=== PATIENT | female | born 1960 | race Caucasian/White ===

== ENCOUNTER 2022-07-25 21:32 | Inpatient (IN) | payer OTHER, SELFPAY ==
[2022-07-25 21:34] VITALS: O2SAT 99
--- NOTE | 2022-07-25 21:41 | PC.NURSE ---
1950-MD Yuli called asking for bed situation and that he has a pt a [facility] he wants transferred here. Pt info taken and relayed to Everardo the Hospitalist. 1999- [facility] access center called to speak to Hospitalist but said they were disconnected from [facility] and that they would call back. 2004- I called [facility] for Facesheet to be sent to [facility]. 2007- [facility] called back at this time with acceptance from [facility] hospitalist and MD Yuli. Bed assignment given and number for report as well. 2139- Pt arrived to 2nd floor at this time.
--- NOTE | 2022-07-25 21:43 | PC.NURSE ---
AT 2009 RECIEVED REPORT FROM Trena JONES RN/[facility]. PATIENT ARRIVED TO THE FLOOR AT 2135 [facility]. ADMITTED TO ROOM 215.
--- NOTE | 2022-07-25 21:45 | PC.NURSE ---
pt arrived to floor at this time
[2022-07-25 21:55] VITALS: BP 149/63; PULSE 77; RESP 17; TEMP 36.6; O2SAT 93; BMI 30.8
--- NOTE | 2022-07-25 22:05 | XR_ITS ---
PROCEDURE INFORMATION: Exam: XR Chest Exam date and time: 07/25/2022 10:35 PM Age: 62 years old Clinical indication: Other: Syncope TECHNIQUE: Imaging protocol: Radiologic exam of the chest. Views: 1 view. COMPARISON: No relevant prior studies available. FINDINGS: Lungs: Clear, symmetrically inflated lungs. Pleural spaces: No pleural effusion. No pneumothorax. Heart/Mediastinum: Cardiac silhouette is normal in size for technique. Vasculature: Mediastinal surgical clips and vascular markers suggest prior myocardial revascularization. Diaphragm: Elevated left hemidiaphragm. Bones/joints: Age appropriate. IMPRESSION: No acute cardiopulmonary abnormality. Elevated left hemidiaphragm noted.
--- NOTE | 2022-07-25 22:06 | XR_ITS ---
PROCEDURE INFORMATION: Exam: XR Right Foot Exam date and time: 07/25/2022 10:35 PM Age: 62 years old Clinical indication: Other: Heel ulcer; Additional info: Ulcer right heel TECHNIQUE: Imaging protocol: Radiologic exam of the right foot. Views: 1 or 2 views. COMPARISON: No relevant prior studies available. FINDINGS: Bones/joints: There is thickening of the Achilles tendon. Soft tissues: Pes cavus. Shallow ulcer noted over the heel. Hyperextended toes limit assessment. Dorsal soft tissue swelling. Vasculature: Moderate arterial calcification. IMPRESSION: 1. No bony destructive change is evident. Shallow ulcer noted over the heel. No radiopaque foreign body. Prominent arterial calcifications suggest diabetes. 2. Thickened Achilles tendon may reflect tendinosis or partial disruption. 3. Pes cavus. Hyperextended toes.
--- NOTE | 2022-07-25 22:26 | ECG_ITS ---
APPROVED REPORT Exam: Resting ECG HR:82 bpm ECG Measurements Heart Rate 82 AXES OH 167 P 52 QRSd 105 QRS -13 QT 379 T 84 QTc 417 Conclusion SINUS RHYTHM LEFT VENTRICULAR HYPERTROPHY AND ST-T CHANGE [VOLTAGE CRITERIA PLUS ST/T ABNORMALITY] ABNORMAL ECG UNCONFIRMED REPORT Electronically signed by : Jordon Caal MD 07/26/2022 20:00:50
--- NOTE | 2022-07-25 23:11 | EXP.HP ---
History of Present Illness *Admission Date: 07/25/22 *Reason for visit:: Syncope, Hypoglycemia *History of present illness: Ms. Slade is a 62-year-old female who was transferred from [facility] today due to a syncopal event that occurred while at [facility] prior to presentation. She was found by EMS to have a blood glucose level that was 50 mg/dl on arrival to [facility] by EMS. She was given an AMP of D50 and brought to [facility] ER by EMS. While at [facility] she continued to be hypoglycemic and required an additional amp of D50, blood glucose was noted to be <49, during her work-up at [facility], Troponin was found to be elevated at 327. EKG showed Sinus Tachycardia with HR of [address] segment elevation or depression. She was noted to have a diabetic ulcer on the Right heel and WBC was elevated at 17.2. She was transferred to [facility] for higher level of care and for Cardiology evaluation due to elevated troponin and non-healing right foot ulcer. Discussion was undertaken with Cardiology who recommends an Echo, the patient had a recent CABG x 3 in 11/2021 and an [place] and Cardiac monitoring. At the outside facility the patient received Heparin, Brilinta, Atorvastatin at 1L Normal Saline. The plan of care was discussed with the patient on admission. She verbalized understanding and agreement with the plan of care. [facility] Disclaimer: The information contained in this section may have been updated after the patient was seen, as this information can be updated by other users. Medical History (Updated 07/26/22 @ 01:40 by Jocelin Betancur RN) Diabetes Elevated HDL HTN (hypertension) Hypothyroid Surgical History S/P CABG x 3 Family History Brother Hypertension Mother Hypertension Father Hypertension Mother Hypothyroid Sister Hypothyroid Father COPD (chronic obstructive pulmonary disease) Father Lung cancer Social History Smoking Status: Former smoker years smoked: 2 alcohol intake: never current occupational status: unemployed Travel in the last 8 weeks: None adopted: No caregiver/support person: Yes ([employer]) foster care: No household members: none housing: house lives independently: Yes marital status: single number of children: 0 number of grandchildren: 0 education level: high school service: No [place] [facility]: No current occupational exposures/hazards: No pets and animals: No leisure activities: other sexually active: No diet: diabetic well-balanced diet: about half the time caffeine: No physical activity: walking frequency: 1-2 times per week Review of Systems Review of Systems Review of systems:: pertinent systems reviewed and negative unless documented below Constitutional Constitutional: Reports system reviewed and no additional complaints, except as documented Eyes Eyes: Reports system reviewed and no additional complaints, except as documented ENT Ears, Nose, Mouth, and Throat: Reports dizziness *Cardiovascular Cardiovascular: Reports system reviewed and no additional complaints, except as documented *Respiratory Respiratory: Reports system reviewed and no additional complaints, except as documented *Gastrointestinal Gastrointestinal: Reports system reviewed and no additional complaints, except as documented *Genitourinary Genitourinary: Reports system reviewed and no additional complaints, except as documented *Musculoskeletal Musculoskeletal: Reports system reviewed and no additional complaints, except as documented Integumentary/Breasts Skin/Breast: Reports system reviewed and no additional complaints, except as documented *Neurologic Neurologic: Reports dizziness Psychiatric Psychiatric: Reports system reviewed and no a
[2022-07-25 23:12] LABS: Basophils % 0.1 % (0.1-2.0); Eosinophils # 0.1 K/mm3 (0.0-0.4); Eosinophils % 0.5 % (0.1-12.0); Hematocrit 25.4 % (37.0-47.0); Hemoglobin 8.8 g/dL (12.2-16.2); Lymphocytes % 5.3 % (10-50); Mean Corpuscular HGB Conc 34.5 g/dL (31.8-35.4); Mean Corpuscular Hemoglobin 28.7 pg (27.0-31.2); Mean Corpuscular Volume 83.2 fl (81-99); Mean Platelet Volume 7.7 fl (7.4-10.4); Monocytes % 5.3 % (1.7-9.3); Neutrophils # 16.6 K/mm3 (1.8-7.8); Neutrophils % 88.7 % (37.0-80.0); Platelet Count 385 K/mm3 (142-424); Red Blood Count 3.05 M/mm3 (4.20-5.40); Red Cell Distribution Width 13.9 % (11.5-17.5); White Blood Count 18.7 K/mm3 (4.8-10.8)
[2022-07-25 23:13] LABS: Chloride 106 mmol/L (98-107)
[2022-07-25 23:14] LABS: Potassium 3.7 mmoL/L (3.5-5.1); Sodium 131 mmol/L (136-145)
[2022-07-25 23:16] LABS: Alanine Aminotransferase 29 U/L (12-78); Alkaline Phosphatase 100 U/L (38-126); Anion Gap 9.7 mEq/L (5-15); Aspartate Amino Transferase 41 U/L (14-36); Bilirubin,Total 0.5 mg/dl (0.2-1.3); Blood Urea Nitrogen 33 mg/dl (7-17); Carbon Dioxide 19 mmol/L (22.0-30.0); Creatinine Clearance Estimated 50 mL/min (50-200); Estimated Glomerular Filt Rate 30 ml/min (>60); GFR (African American) 37 ML/MIN (>60)
[2022-07-25 23:17] LABS: Albumin Level 3.4 g/dl (3.5-5.0); Albumin/Globulin Ratio 1.1 (1.1-1.8); Calcium 8.3 mg/dl (8.4-10.2); Globulin 3.1 g/dL (1.3-3.2); Glucose 78 mg/dl (74-100); Total Protein,Serum 6.5 g/dl (6.3-8.2)
[2022-07-25 23:21] LABS: Iron 17 ug/dL (37-170)
[2022-07-25 23:31] LABS: NT Pro Brain Natriuretic Pep. 7860 pg/mL (0-125); Total Iron Binding Capacity 220 ug/dL (265-497)
[2022-07-25 23:38] LABS: MANUAL DIFFERENTIAL MANUAL DIFFERENTIAL (MANUAL DIFF)
[2022-07-25 23:44] LABS: Lymphocytes % 9 % (10-50); Monocytes % 1 % (2-9); Neutrophils % 89 % (42-76); Platelet Estimate Normal; Total Cells Counted 100
[2022-07-25 23:45] LABS: Ovalocytes 1+; Poikilocytosis 1+
[2022-07-25 23:57] LABS: Troponin I < 0.01 ng/ml (0.00-0.034)
[2022-07-26] VITALS (8 sets, daily range): BP systolic 127–167; BP diastolic 54–70; PULSE 80–107; RESP 16–20; TEMP 36.8–37.8; O2SAT 96–100; BMI 30.9
--- NOTE | 2022-07-26 00:30 | PC.NURSE ---
AT 2230 PATIENTS COGNITIVE STATUS DECLINED. BRAIN FOG. FSBS 42. REPEAT FSBS 39. HOSPITALIST NOTIFIED (JULIO CÉSAR) AND ORDER RECEIVED TO GIVE 12.5 GM D50 IVPWHICH WAS GIVEN AT 2232. AT 0005 PATIENT C/O NAUSEA AND SHAKEY. FSBS 46. 2ND DOSE 0F D50 12.5 GM IVP GIVEN AT 0006. REPEAT FSBS AT 0030 WAS 76.
[2022-07-26 00:31] LABS: Vitamin B12 223 pg/mL (239-931)
--- NOTE | 2022-07-26 00:43 | PC.NURSE ---
PATIENT VOMITED. HOSPITALIST NOTIFIED. TO PLACE ORDER FOR PRN MED.
--- NOTE | 2022-07-26 01:08 | PC.NURSE ---
ORDER RECEIVED TO DO Q 1 HR FSBD. 0100 FSBS NOW 53. HOSPITALIST (JULIO CÉSAR ) [id number]. TO PUT ORDER IN FOR D50 25 GRAMS IVP.
--- NOTE | 2022-07-26 01:21 | PC.NURSE ---
25 GRAM D50 IVP RECEIVED AT 0117.
--- NOTE | 2022-07-26 01:23 | PC.NURSE ---
RIGHT FOOT ULCER UNSTAGEABLE. FOUL SMELLING. YELLOW DRAINAGE. ALSO HAS SUSPICIOUS MOLE ON BACK. POSSIBLE CANCER.
[2022-07-26 01:58] LABS: POC Glucose,Bedside 89 (70-110)
[2022-07-26 01:58] LABS: POC Glucose,Bedside 76 (70-110)
--- NOTE | 2022-07-26 02:07 | PC.NURSE ---
fsbs 97 at this time.
[2022-07-26 02:21] LABS: POC Glucose,Bedside 97 (70-110)
[2022-07-26 02:21] LABS: POC Glucose,Bedside 53 (70-110)
[2022-07-26 03:10] LABS: POC Glucose,Bedside 64 (70-110)
--- NOTE | 2022-07-26 05:08 | PC.NURSE ---
FSBS AT 0400 WAS 78. FSBS AT 0500 WAS 74. WILL CONTINUE TO MONITOR.
[2022-07-26 05:10] LABS: POC Glucose,Bedside 78 (70-110)
[2022-07-26 05:10] LABS: POC Glucose,Bedside 74 (70-110)
--- NOTE | 2022-07-26 05:36 | PC.NURSE ---
PATIENT'S FSBS HAVE BEEN LOW DISPITE D50 IVP AND SNACKS. NO FURTHER N/V SINCE MEDICATED WITH ZOFRAN, RIGHT FOOT ELEVATED. RUNNING LOW GRADE TEMP 100.1 ORAL.
[2022-07-26 05:38] LABS: Troponin I < 0.01 ng/ml (0.00-0.034)
[2022-07-26 06:06] LABS: POC Glucose,Bedside 64 (70-110)
--- NOTE | 2022-07-26 06:41 | PC.NURSE ---
6AM FSBS 64. ICE CREAM PROVIDED.
--- NOTE | 2022-07-26 06:53 | PC.NURSE ---
FSBS 85.
[2022-07-26 06:59] LABS: POC Glucose,Bedside 85 (70-110)
[2022-07-26 08:15] LABS: Basophils % 0.2 % (0.1-2.0); Eosinophils # 0.1 K/mm3 (0.0-0.4); Eosinophils % 0.2 % (0.1-12.0); Hematocrit 26.3 % (37.0-47.0); Hemoglobin 8.7 g/dL (12.2-16.2); Lymphocytes # 1.2 K/mm3 (0.7-4.5); Lymphocytes % 6.1 % (10-50); Mean Corpuscular HGB Conc 32.9 g/dL (31.8-35.4); Mean Corpuscular Hemoglobin 28.1 pg (27.0-31.2); Mean Corpuscular Volume 85.5 fl (81-99); Mean Platelet Volume 7.7 fl (7.4-10.4); Monocytes % 5.1 % (1.7-9.3); Neutrophils # 16.7 K/mm3 (1.8-7.8); Neutrophils % 88.3 % (37.0-80.0); Platelet Count 440 K/mm3 (142-424); Red Blood Count 3.07 M/mm3 (4.20-5.40); White Blood Count 18.9 K/mm3 (4.8-10.8)
[2022-07-26 08:18] LABS: MANUAL DIFFERENTIAL MANUAL DIFFERENTIAL (MANUAL DIFF)
[2022-07-26 08:20] LABS: Chloride 109 mmol/L (98-107); Potassium 4.1 mmoL/L (3.5-5.1); Sodium 133 mmol/L (136-145)
[2022-07-26 08:22] LABS: Blood Urea Nitrogen 34 mg/dl (7-17); Creatinine Clearance Estimated 50 mL/min (50-200); Estimated Glomerular Filt Rate 30 ml/min (>60); GFR (African American) 37 ML/MIN (>60)
[2022-07-26 08:23] LABS: Alanine Aminotransferase 40 U/L (12-78); Albumin Level 3.4 g/dl (3.5-5.0); Albumin/Globulin Ratio 1.1 (1.1-1.8); Alkaline Phosphatase 117 U/L (38-126); Anion Gap 11.1 mEq/L (5-15); Aspartate Amino Transferase 65 U/L (14-36); Bilirubin,Total 0.4 mg/dl (0.2-1.3); Carbon Dioxide 17 mmol/L (22.0-30.0); Glucose 63 mg/dl (74-100); Total Protein,Serum 6.4 g/dl (6.3-8.2)
[2022-07-26 08:28] LABS: Hemoglobin A1C 5.2 % (4.0-6.0)
--- NOTE | 2022-07-26 08:29 | HMH.PHAINT1 ---
Pharmacy Intervention Comments: MEDICATION RECONCILIATION COMPLETE USING EXTERNAL PHARMACY FILL HISTORY.
--- NOTE | 2022-07-26 08:31 | PC.NURSE ---
wound culture obtained from giuliano del castillo. sent to lab
[2022-07-26 08:39] LABS: Lymphocytes % 5 % (10-50); Monocytes % 8 % (2-9); Neutrophils % 87 % (42-76); Total Cells Counted 100
[2022-07-26 08:40] LABS: Anisocytosis 1+; Ovalocytes 1+; Platelet Estimate Slight Increase; Poikilocytosis 1+
[2022-07-26 08:54] LABS: Thyroid Stimulating Hormone 2.17 uIU/mL (0.465-4.68)
--- NOTE | 2022-07-26 09:09 | EXP.PHA.CONS ---
Pharmacy Consult Date: 07/26/22 Time: 09:11 Referring provider: DR ZAMUDIO Reason for Consult:: VANCOMYCIN DOSING CONSULT Allergies Allergy/AdvReac Type Severity Reaction Status Date / Time No Known Allergies Allergy Verified 07/25/22 22:09 Home Medications Medication Instructions Recorded Confirmed Type atorvastatin 40 mg tablet 40 mg PO HS High cholesterol 07/25/22 07/25/22 History empagliflozin 10 mg tablet 10 mg PO AM CAD 07/25/22 07/25/22 History (Jardiance) glimepiride 4 mg tablet 4 mg PO DAILYDM Cholesterol 07/25/22 07/26/22 History levothyroxine 75 mcg tablet 75 mcg PO DAILYDM THYROID 07/25/22 07/26/22 History lisinopril 20 mg tablet 20 mg PO AM Hypertension 07/25/22 07/25/22 History metformin 1,000 mg tablet 1,000 mg PO BIDWMEAL Diabetes 07/25/22 07/26/22 History metoprolol tartrate 25 mg tablet 12.5 mg PO BID Hypertension 07/25/22 07/26/22 History New Prescriptions to Start Prescriptions: Height: 1.73 m Weight: 92.6 kg Laboratory Results:: Laboratory Results - last 24 hr 07/25/22 22:50: Troponin I < 0.01 07/25/22 22:50: WBC 18.7 H, RBC 3.05 L, Hgb 8.8 L, Hct 25.4 L, MCV 83.2, MCH 28.7, MCHC 34.5, RDW 13.9, Plt Count 385, MPV 7.7, Neut % (Auto) 88.7 H, Lymph % (Auto) 5.3 L, [place] % (Auto) 5.3, Eos % (Auto) 0.5, Baso % (Auto) 0.1, Neut # (Auto) 16.6 H, Lymph # (Auto) 1.0, [place] # (Auto) 1.0, Eos # (Auto) 0.1, Baso # (Auto) 0.0, Total Counted 100, Neutrophils % (Manual) 89 H, Band Neutrophils % 1.0, Lymphocytes % (Manual) 9 L, Monocytes % (Manual) 1 L, Platelet Estimate Normal, Poikilocytosis 1+, Ovalocytes 1+ 07/25/22 22:50: Sodium 131 L, Potassium 3.7, Chloride 106, Carbon Dioxide 19 L, Anion Gap 9.7, BUN 33 H, Creatinine 1.70 H, Estimated Creat Clear 50, Estimated GFR 30 L, Est GFR ( Amer) 37 L, Glucose 78, Calcium 8.3 L, Total Bilirubin 0.5, AST 41 H, ALT 29, Alkaline Phosphatase 100, Total Protein 6.5, Albumin 3.4 L, Globulin 3.1, Albumin/Globulin Ratio 1.1 07/25/22 22:50: NT-Pro-B Natriuret Pep 7860 H 07/25/22 22:50: Iron 17 L, TIBC 220 L, Iron Saturation 7.39820 L 07/25/22 22:50: Vitamin B12 223 L 07/25/22 23:00: POC Glucose 89 07/26/22 00:27: POC Glucose 76 07/26/22 00:58: POC Glucose 53 L 07/26/22 02:04: POC Glucose 97 07/26/22 03:02: POC Glucose 64 L 07/26/22 04:03: POC Glucose 78 07/26/22 05:03: POC Glucose 74 07/26/22 05:08: Troponin I < 0.01 07/26/22 05:58: POC Glucose 64 L 07/26/22 06:52: POC Glucose 85 07/26/22 08:05: WBC 18.9 H, RBC 3.07 L, Hgb 8.7 L, Hct 26.3 L, MCV 85.5, MCH 28.1, MCHC 32.9, RDW 14.0, Plt Count 440 H, MPV 7.7, Neut % (Auto) 88.3 H, Lymph % (Auto) 6.1 L, [place] % (Auto) 5.1, Eos % (Auto) 0.2, Baso % (Auto) 0.2, Neut # (Auto) 16.7 H, Lymph # (Auto) 1.2, [place] # (Auto) 1.0, Eos # (Auto) 0.1, Baso # (Auto) 0.0, Total Counted 100, Neutrophils % (Manual) 87 H, Lymphocytes % (Manual) 5 L, Monocytes % (Manual) 8, Platelet Estimate Slight increase, Poikilocytosis 1+, Anisocytosis 1+, Ovalocytes 1+ 07/26/22 08:05: Sodium 133 L, Potassium 4.1, Chloride 109 H, Carbon Dioxide 17 L, Anion Gap 11.1, BUN 34 H, Creatinine 1.70 H, Estimated Creat Clear 50, Estimated GFR 30 L, Est GFR ( Amer) 37 L, Glucose 63 L, Calcium 8.0 L, Total Bilirubin 0.4, AST 65 H D, ALT 40 D, Alkaline Phosphatase 117, Total Protein 6.4, Albumin 3.4 L, Globulin 3.0, Albumin/Globulin Ratio 1.1, TSH 2.17 07/26/22 08:05: Hemoglobin A1c 5.2 Medical History: Medical History (Updated 07/26/22 @ 01:40 by Jocelin Betancur RN) Diabetes Elevated HDL HTN (hypertension) Hypothyroid Assessment and Plan Assessment and plan all Dx Assessment and Plan for all problems:: Pharmacokinetic dosing service Objective: Age: 62 yo Serum creatinine: 1.7 mg/dL Height: 68.1 Inches Weight (kg): 92.6 Diagnosis: CELLULITIS, SEPSIS, FOOT ULCER Assessment: IBW (kg): 64.13 Dosing wt(kg): 92.6 Estimated Creatinine clearance
[2022-07-26 09:34] LABS: POC Glucose,Bedside 73 (70-110)
[2022-07-26 09:34] LABS: POC Glucose,Bedside 50 (70-110)
--- NOTE | 2022-07-26 10:24 | PC.NURSE ---
fsbs 41 @ 1000 check. New orders received
[2022-07-26 11:08] LABS: POC Glucose,Bedside 79 (70-110)
[2022-07-26 11:10] LABS: Troponin I < 0.01 ng/ml (0.00-0.034)
--- NOTE | 2022-07-26 11:16 | PC.NURSE ---
pt bathed and assisted up to chair with 2 assist dry dressing placed to r heel due to increased drainage. foul odor from wound.
[2022-07-26 11:30] LABS: Coronavirus 19, PCR Not Detected (NotDetected); Influenza A, PCR Not Detected (NotDetected); Influenza B, PCR Not Detected (NotDetected)
[2022-07-26 12:07] LABS: POC Glucose,Bedside 83 (70-110)
[2022-07-26 13:09] LABS: POC Glucose,Bedside 95 (70-110)
[2022-07-26 14:22] LABS: POC Glucose,Bedside 70 (70-110)
[2022-07-26 17:38] LABS: POC Glucose,Bedside 136 (70-110)
[2022-07-26 17:38] LABS: POC Glucose,Bedside 50 (70-110)
[2022-07-26 18:47] LABS: Chloride 108 mmol/L (98-107); Potassium 3.8 mmoL/L (3.5-5.1); Sodium 133 mmol/L (136-145)
[2022-07-26 18:50] LABS: Anion Gap 12.8 mEq/L (5-15); Blood Urea Nitrogen 34 mg/dl (7-17); Carbon Dioxide 16 mmol/L (22.0-30.0); Creatinine Clearance Estimated 47 mL/min (50-200); Estimated Glomerular Filt Rate 29 ml/min (>60); GFR (African American) 34 ML/MIN (>60)
[2022-07-26 18:51] LABS: Calcium 7.9 mg/dl (8.4-10.2); Glucose 154 mg/dl (74-100)
[2022-07-26 20:44] LABS: POC Glucose,Bedside 153 (70-110)
[2022-07-26 22:38] LABS: POC Glucose,Bedside 126 (70-110)
[2022-07-27] VITALS (7 sets, daily range): BP systolic 123–153; BP diastolic 55–70; PULSE 60–95; RESP 16–18; TEMP 36.9–37.2; O2SAT 98–100; BMI 31.6
[2022-07-27 00:19] LABS: POC Glucose,Bedside 132 (70-110)
[2022-07-27 02:37] LABS: POC Glucose,Bedside 118 (70-110)
[2022-07-27 03:40] LABS: Strep Scrn Group A (Rapid) Negative (Negative)
[2022-07-27 04:19] LABS: POC Glucose,Bedside 109 (70-110)
--- NOTE | 2022-07-27 04:39 | PC.NURSE ---
pt with complaints of nausea this shift and medicated x2 with zofran, fsbs have remained above 100 through the shift at this time, pt was incontinent of bowel x1, pt with mild diarrhea episodes x2, will send stool sample with next loose bm, pt requires assist x1 to bsc, pt with low grade temp noted at start of shift, pt afebrile at this time, other v/s are stable, right foot ulcer with mod amount of drainage noted, drainage has strong odor noted, +pedal pulse noted to RLE, no acute distress or concerns noted at this time. pt is alert and oriented x4
[2022-07-27 06:56] LABS: POC Glucose,Bedside 143 (70-110)
[2022-07-27 07:25] LABS: Chloride 114 mmol/L (98-107); Potassium 3.8 mmoL/L (3.5-5.1); Sodium 134 mmol/L (136-145)
[2022-07-27 07:26] LABS: Basophils # 0.1 K/mm3 (0-0.2); Basophils % 0.4 % (0.1-2.0); Eosinophils # 0.1 K/mm3 (0.0-0.4); Eosinophils % 0.7 % (0.1-12.0); Mean Platelet Volume 7.8 fl (7.4-10.4); Red Cell Distribution Width 14.2 % (11.5-17.5)
--- NOTE | 2022-07-27 07:27 | EXP.ACUTE.PN ---
Subjective *Date: 07/27/22 *Time: 09:09 Interval history: Patient is doing better overnight with her blood sugars. Glucoses consistently running above 100. Has received significant volume over the past 24 hours. We will discontinue IV fluids. Is fluid +1.5 L since admission. Receiving dose of Lasix this morning. Stable on room air however. Blood pressure within normal limits. Denies chest pain, shortness of breath, nausea, vomiting. Still having pain in right ankle. Afebrile. Tolerating good p.o. intake. Medical Exam Vital signs and Labs for Last 24 Hours: Vital Signs Temp Pulse Pulse Pulse Resp BP Pulse Ox 07/27/22 04:00 95 H 07/27/22 04:00 98.4 F 87 16 128/67 99 07/26/22 20:00 80 07/27/22 00:00 60 07/27/22 00:00 98.6 F 68 16 138/70 98 07/26/22 20:00 93 H 100 07/26/22 20:00 99.5 F 84 18 140/67 100 07/26/22 16:00 87 07/26/22 16:00 98.8 F 93 H 16 142/65 H 100 07/26/22 08:00 85 07/26/22 12:08 92 H 07/26/22 12:00 98.3 F 91 H 18 127/64 97 07/26/22 08:00 99.4 F 87 20 136/70 99 Intake and Output 07/26/22 07/26/22 07/27/22 15:59 23:59 07:59 Intake Total 720 / 2309 711 / 2309 Output Total 400 / 900 0 / 900 0 / 0 Balance 320 / 1409 711 / 1409 0 / 0 Intake: Intake, Oral Amount 720 / 1040 200 / 1040 Infusion Intake 511 / 511 Dextrose 5 % and 0.9 % NaCl 1, 511 / 511 000 ml @ 150 mls/hr IV [id number] Rx#:[id number] Output: Output, Urine Amount 400 / 900 0 / 900 0 / 0 Other: Number of Voids 0 Number of Unmeasured Voids 1 0 1 Number of Bowel Movements 1 1 1 Weight 92.6 kg 94.6 kg Patient Weight 07/27/22 23:59 Weight 94.6 kg Laboratory Results - last 24 hr 07/26/22 02:44: Group A Strep Rapid Negative 07/26/22 08:05: WBC 18.9 H, RBC 3.07 L, Hgb 8.7 L, Hct 26.3 L, MCV 85.5, MCH 28.1, MCHC 32.9, RDW 14.0, Plt Count 440 H, MPV 7.7, Neut % (Auto) 88.3 H, Lymph % (Auto) 6.1 L, [place] % (Auto) 5.1, Eos % (Auto) 0.2, Baso % (Auto) 0.2, Neut # (Auto) 16.7 H, Lymph # (Auto) 1.2, [place] # (Auto) 1.0, Eos # (Auto) 0.1, Baso # (Auto) 0.0, Total Counted 100, Neutrophils % (Manual) 87 H, Lymphocytes % (Manual) 5 L, Monocytes % (Manual) 8, Platelet Estimate Slight increase, Poikilocytosis 1+, Anisocytosis 1+, Ovalocytes 1+ 07/26/22 08:05: Sodium 133 L, Potassium 4.1, Chloride 109 H, Carbon Dioxide 17 L, Anion Gap 11.1, BUN 34 H, Creatinine 1.70 H, Estimated Creat Clear 50, Estimated GFR 30 L, Est GFR ( Amer) 37 L, Glucose 63 L, Calcium 8.0 L, Total Bilirubin 0.4, AST 65 H D, ALT 40 D, Alkaline Phosphatase 117, Total Protein 6.4, Albumin 3.4 L, Globulin 3.0, Albumin/Globulin Ratio 1.1, TSH 2.17 07/26/22 08:05: Hemoglobin A1c 5.2 07/26/22 08:05: POC Glucose 73 07/26/22 09:14: POC Glucose 50 L 07/26/22 10:42: Troponin I < 0.01 07/26/22 11:01: POC Glucose 79 07/26/22 11:24: SARS-CoV-2 (PCR) Not detected, Influenza A Untype (PCR) Not detected, Influenza Type B (PCR) Not detected 07/26/22 12:00: POC Glucose 83 07/26/22 13:02: POC Glucose 95 07/26/22 14:15: POC Glucose 70 07/26/22 15:46: POC Glucose 50 L 07/26/22 16:57: POC Glucose 136 H 07/26/22 18:37: Sodium 133 L, Potassium 3.8, Chloride 108 H, Carbon Dioxide 16 L, Anion Gap 12.8, BUN 34 H, Creatinine 1.80 H, Estimated Creat Clear 47, Estimated GFR 29 L, Est GFR ( Amer) 34 L, Glucose 154 H D, Calcium 7.9 L 07/26/22 20:12: POC Glucose 153 H 07/26/22 22:31: POC Glucose 126 H 07/27/22 00:11: POC Glucose 132 H 07/27/22 02:29: POC Glucose 118 H 07/27/22 04:12: POC Glucose 109 07/27/22 06:49: POC Glucose 143 H I & O for Labs for Last 24 Hours: Intake & Output 07/24/22 07/25/22 07/26/22 07/27/22 23:59 23:59 23:59 23:59 Intake Total 2309 / 2309 Output Total 900 / 900 0 / 0 Balance 1409 / 1409 0 / 0 Weight 91.9 kg 92.6 kg 94.6 kg Constitutional: Present no acute distress, obese and chronically ill appearing Head: Present
[2022-07-27 07:28] LABS: Alanine Aminotransferase 54 U/L (12-78); Albumin Level 2.7 g/dl (3.5-5.0); Alkaline Phosphatase 119 U/L (38-126); Anion Gap 8.8 mEq/L (5-15); Aspartate Amino Transferase 75 U/L (14-36); Bilirubin,Total 0.3 mg/dl (0.2-1.3); Blood Urea Nitrogen 31 mg/dl (7-17); Calcium 7.4 mg/dl (8.4-10.2); Carbon Dioxide 15 mmol/L (22.0-30.0); Creatinine Clearance Estimated 51 mL/min (50-200); Estimated Glomerular Filt Rate 30 ml/min (>60); GFR (African American) 37 ML/MIN (>60); Globulin 2.7 g/dL (1.3-3.2); Glucose 135 mg/dl (74-100); Total Protein,Serum 5.4 g/dl (6.3-8.2)
[2022-07-27 07:29] LABS: Magnesium 1.8 mg/dl (1.6-2.3)
[2022-07-27 07:31] LABS: Erythrocyte Sedimentation Rate > 140 mm/hr (0-30)
[2022-07-27 07:33] LABS: Hemoglobin 7.7 g/dL (12.2-16.2); Lymphocytes # 1.1 K/mm3 (0.7-4.5); Lymphocytes % 9.4 % (10-50); Mean Corpuscular HGB Conc 33.4 g/dL (31.8-35.4); Mean Corpuscular Hemoglobin 28.5 pg (27.0-31.2); Mean Corpuscular Volume 85.3 fl (81-99); Monocytes # 0.7 K/mm3 (0.1-1.0); Monocytes % 5.9 % (1.7-9.3); Neutrophils # 10.1 K/mm3 (1.8-7.8); Neutrophils % 83.6 % (37.0-80.0); Platelet Count 379 K/mm3 (142-424)
[2022-07-27 07:34] LABS: C-Reactive Protein 104.2 mg/L (0-4)
[2022-07-27 09:41] LABS: POC Glucose,Bedside 193 (70-110)
[2022-07-27 11:44] LABS: POC Glucose,Bedside 181 (70-110)
--- NOTE | 2022-07-27 15:25 | PC.NURSE ---
Pt has been up to chair this shift. Has ambulated to BS with assist this shift. Tolerated fair. 1550 ml total urine output. BLE remain edematous. Lasix IV x2 administered. DSG placed to (R) foot. Pictures of (R)foot and ankle on chart. VSS. Medication administered per jul. No complaints stated. Family in room.
[2022-07-27 15:28] LABS: POC Glucose,Bedside 194 (70-110)
[2022-07-27 18:16] LABS: Chloride 108 mmol/L (98-107); Sodium 134 mmol/L (136-145)
[2022-07-27 18:19] LABS: Blood Urea Nitrogen 34 mg/dl (7-17); Calcium 8.3 mg/dl (8.4-10.2); Carbon Dioxide 16 mmol/L (22.0-30.0); Creatinine Clearance Estimated 46 mL/min (50-200); Estimated Glomerular Filt Rate 27 ml/min (>60); GFR (African American) 32 ML/MIN (>60); Glucose 171 mg/dl (74-100)
[2022-07-27 21:31] LABS: POC Glucose,Bedside 166 (70-110)
[2022-07-28 04:00] VITALS: BP 138/68; PULSE 85; RESP 18; TEMP 36.9; O2SAT 98; BMI 31.4
[2022-07-28 06:29] LABS: POC Glucose,Bedside 168 (70-110)
[2022-07-28 06:32] LABS: Basophils # 0.1 K/mm3 (0-0.2); Basophils % 0.8 % (0.1-2.0); Chloride 113 mmol/L (98-107); Eosinophils # 0.1 K/mm3 (0.0-0.4); Hematocrit 23.7 % (37.0-47.0); Hemoglobin 7.7 g/dL (12.2-16.2); Lymphocytes # 1.2 K/mm3 (0.7-4.5); Lymphocytes % 9.4 % (10-50); Mean Corpuscular HGB Conc 32.6 g/dL (31.8-35.4); Mean Corpuscular Hemoglobin 28.5 pg (27.0-31.2); Mean Corpuscular Volume 87.3 fl (81-99); Monocytes # 0.9 K/mm3 (0.1-1.0); Neutrophils # 10.3 K/mm3 (1.8-7.8); Neutrophils % 81.8 % (37.0-80.0); Platelet Count 421 K/mm3 (142-424); Potassium 4.1 mmoL/L (3.5-5.1); Red Blood Count 2.71 M/mm3 (4.20-5.40); Red Cell Distribution Width 14.2 % (11.5-17.5); Sodium 133 mmol/L (136-145); White Blood Count 12.6 K/mm3 (4.8-10.8)
[2022-07-28 06:34] LABS: Alanine Aminotransferase 44 U/L (12-78); Aspartate Amino Transferase 50 U/L (14-36); Blood Urea Nitrogen 35 mg/dl (7-17); Creatinine Clearance Estimated 46 mL/min (50-200); Estimated Glomerular Filt Rate 27 ml/min (>60); GFR (African American) 32 ML/MIN (>60)
[2022-07-28 06:35] LABS: Albumin Level 2.8 g/dl (3.5-5.0); Alkaline Phosphatase 137 U/L (38-126); Anion Gap 10.1 mEq/L (5-15); Bilirubin,Total 0.4 mg/dl (0.2-1.3); Calcium 7.9 mg/dl (8.4-10.2); Carbon Dioxide 14 mmol/L (22.0-30.0); Globulin 2.9 g/dL (1.3-3.2); Glucose 150 mg/dl (74-100); Magnesium 1.7 mg/dl (1.6-2.3); Total Protein,Serum 5.7 g/dl (6.3-8.2)
[2022-07-28 07:19] VITALS: BP 156/72; PULSE 79; RESP 18; TEMP 37.3; O2SAT 100
--- NOTE | 2022-07-28 08:00 | CA_ITS ---
APPROVED REPORT EXAM: Comprehensive 2D, Doppler, and color-flow Echocardiogram Urologist Physician: Lashon Daniel CRT Ht: 5 ft 8 in Wt: 204lbs BSA: 2.06 BP: 146/63 mmHg Indications: Diabetes, Hyperlipidemia, Hypertension/HDD, cabg 2021 2D Dimensions LVOT 1.82 cm (M/F) 1.5-2.5 LA Volume 71.70 mL LA Volume Index 34.00 mL/m2 (M/F) 16-34 M-Mode Dimensions RVDd 2.54 cm (0.9-2.6) LA Diam 4.79 cm (1.9-4.0) LVDd 4.49 cm (3.5-5.7) Ao Diam 3.71 cm (2.0-3.7) LVDs 3.22 cm (3.5-5.7) IVSd 1.65 cm (0.6-1.1) PWd 1.09 cm (0.6-1.1) EF (Teich) 54.80% FS 28.30% EDV (Teich) 92.00 mL TAPSE 2.12 (<1.7) ESV (Teich) 41.60 mL LV Diastology E Decel Time 213.00 (160-240 msec) E/A Ratio 1.83 MED E' 4.40 (< 7 cm/sec) MED A' 5.20 cm/s E'/MED E' Ratio 34.52 (>14) LAT E' 4.50 (<10 cm/sec) LAT A' 7.30 cm/s E/LAT E' Ratio 33.76 (>14) Aortic Valve AO Peak GR. 10.50 mmHg Mitral Valve MV A Velocity 83.00 (40-130 cm/s) E/A Ratio 1.83 MV Decel. Time 213.00 (160-240 ms) Pulmonary Valve PV Peak Velocity 205.00 (50-150 cm/s) Tricuspid Valve TR P. Velocity 305.00 cm/s RAP Estimate 10.00 mmHg RVSP 47.20 mmHg Left Ventricle Left atrium is mildly enlarged, left ventricle is normal size mild concentric left ventricular hypertrophy, estimated ejection fraction 45% with marked hypokinesis involving the basal septum and inferior wall. Grade 2 diastolic dysfunction seen with tissue Doppler evidence of late left atrial pressure. Right Ventricle Right atrium and right ventricle are normal size and contractility. Aortic Valve Aortic valve is minimally thickened and calcified without aortic stenosis aortic insufficiency. Mitral Valve Mitral valve has mitral annular calcification, leaflets are minimally thickened, there is mild mitral regurgitation. Tricuspid Valve Tricuspid valve grossly normal, there is mild tricuspid regurgitation, tricuspid regurgitation jet velocity is inadequate for calculation of the right ventricular systolic pressure. Pulmonic Valve Pulmonic valve is poorly visualized. Great Vessels Aortic root is normal size. Inferior vena cava is mildly dilated with no significant inspiratory collapse. Pericardium No significant pericardial effusion noted. Conclusion 1. Mildly enlarged left atrium, normal left ventricular size, mild concentric left ventricular hypertrophy, estimated ejection fraction 45% with multiple segmental wall motion abnormality described above, grade 2 diastolic dysfunction seen with tissue Doppler evidence of raise left atrial pressure. 2. Mild mitral and tricuspid regurgitation. 3. No significant pericardial effusion noted. 4. Inferior vena cava is dilated with no significant inspiratory collapse. Electronically signed by : Primo Argueta MD 07/28/2022 13:02:46
--- NOTE | 2022-07-28 08:07 | EXP.ACUTE.PN ---
Subjective *Date: 07/28/22 *Time: 08:24 Interval history: No acute events overnight. Stable on room air. Diuresed well yesterday. Tolerating p.o. intake. Afebrile. Still having some pain in right ankle but no fevers or chills. Medical Exam Vital signs and Labs for Last 24 Hours: Vital Signs Temp Pulse Pulse Resp BP Pulse Ox 07/28/22 07:19 99.1 F 79 18 156/72 H 100 07/28/22 04:00 98.4 F 85 18 138/68 98 07/27/22 23:40 98.4 F 80 16 123/55 L 98 07/27/22 19:30 98.8 F 74 18 153/64 H 100 07/27/22 15:19 99.0 F 77 17 140/59 L 100 07/27/22 11:06 98.6 F 77 18 130/65 100 Intake and Output 07/27/22 07/28/22 07/28/22 23:59 07:59 15:59 Intake Total 240 / 3212 240 / 240 Output Total 800 / 2350 400 / 400 Balance -560 / 862 -160 / -160 Intake: Intake, Oral Amount 240 / 1020 240 / 240 Output: Output, Urine Amount 800 / 2350 400 / 400 Other: Number of Voids 1 Number of Unmeasured Voids 1 0 Number of Bowel Movements 1 Weight 94.2 kg Patient Weight 07/28/22 23:59 Weight 94.2 kg Laboratory Results - last 24 hr 07/27/22 09:05: POC Glucose 193 H 07/27/22 11:35: POC Glucose 181 H 07/27/22 15:20: POC Glucose 194 H 07/27/22 18:00: Sodium 134 L, Potassium 4.0, Chloride 108 H, Carbon Dioxide 16 L, Anion Gap 14.0, BUN 34 H, Creatinine 1.90 H, Estimated Creat Clear 46, Estimated GFR 27 L, Est GFR ( Amer) 32 L, Glucose 171 H D, Calcium 8.3 L 07/27/22 21:18: POC Glucose 166 H 07/28/22 06:15: POC Glucose 168 H 07/28/22 06:16: WBC 12.6 H, RBC 2.71 L, Hgb 7.7 L, Hct 23.7 L, MCV 87.3, MCH 28.5, MCHC 32.6, RDW 14.2, Plt Count 421, MPV 8.0, Neut % (Auto) 81.8 H, Lymph % (Auto) 9.4 L, [place] % (Auto) 7.0, Eos % (Auto) 1.0, Baso % (Auto) 0.8, Neut # (Auto) 10.3 H, Lymph # (Auto) 1.2, [place] # (Auto) 0.9, Eos # (Auto) 0.1, Baso # (Auto) 0.1 07/28/22 06:16: Sodium 133 L, Potassium 4.1, Chloride 113 H, Carbon Dioxide 14 L, Anion Gap 10.1, BUN 35 H, Creatinine 1.90 H, Estimated Creat Clear 46, Estimated GFR 27 L, Est GFR ( Amer) 32 L, Glucose 150 H, Calcium 7.9 L, Magnesium 1.7, Total Bilirubin 0.4, AST 50 H D, ALT 44, Alkaline Phosphatase 137 H, Total Protein 5.7 L, Albumin 2.8 L, Globulin 2.9, Albumin/Globulin Ratio 1.0 L I & O for Labs for Last 24 Hours: Intake & Output 07/25/22 07/26/22 07/27/22 07/28/22 23:59 23:59 23:59 23:59 Intake Total 2309 / 2309 2972 / 3212 240 / 240 Output Total 900 / 900 2350 / 2350 400 / 400 Balance 1409 / 1409 622 / 862 -160 / -160 Weight 91.9 kg 92.6 kg 94.6 kg 94.2 kg Microbiology Reports for the Last 24 Hours: Microbiology 07/25/22 22:50 Blood Blood Culture - Preliminary NO GROWTH AFTER 48 HOURS 07/25/22 22:50 Blood Blood Culture - Preliminary NO GROWTH AFTER 48 HOURS Constitutional: Present no acute distress, obese and chronically ill appearing Head: Present atraumatic and normocephalic ENT: Present normal exam Neck: Present normal inspection Respiratory: Present normal respiratory effort; Absent accessory muscle use, rhonchi, wheezes or crackles Cardiac: Present Reg Rate and Rhythm Comment:: Well-healed sternotomy scar GI: Present soft and normal bowel sounds; Absent distention or tenderness Extremities: Present normal inspection, full ROM and edema (3+ right lower extremities to knee; left leg with no edema) Skin: Present intact and erythema Comment:: Warmth/erythema over right ankle with sloughing of epidermis and eschar and heel wound; foul smell from foot Neuro: Present Cranial Nerve 2-12 Intact, Grossly Intact, alert, awake, oriented x 3 and moves all extremities Assessment and Plan *Assessment and plan (1) CHF exacerbation: Status: Acute Qualifiers: Heart failure type: unspecified Qualified Code(s): I50.9 - Heart failure, unspecified Category: Medical Code(s): I50.9 - Heart failure, unspecified (2) TYLOR (acute ki
--- NOTE | 2022-07-28 08:13 | CT_ITS ---
FINAL REPORT TECHNIQUE: Thin section axial images were obtained through the right foot without contrast. Reconstruction images were obtained from the axial data. Exam was performed using dose reduction technique. CLINICAL HISTORY: eval for osteo FINDINGS: There is no acute fracture or dislocation. No acute osseous abnormality is identified. 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 There are secondary ossicles adjacent to the navicular and adjacent to the posterior talus. No bone destruction is identified. There is diffuse soft tissue edema in the ankle and foot. No loculated fluid collection or subcutaneous air is seen. Remaining soft tissues are unremarkable. IMPRESSION: No acute osseous abnormality of the right lower extremity. Soft tissue edema which suggests cellulitis in the appropriate clinical setting. Reviewed, Interpreted and Dictated by Sarah Moreno MD Transcribed by Shanae Cerna Authenticated and [facility]
--- NOTE | 2022-07-28 08:26 | EXP.ORTH.CON ---
History of Present Illness *Admission Date: 07/25/22 *Reason for visit:: Right DFU, cellulitis *History of present illness: Ms. Slade is a 62-year-old female who [facility] due to a syncopal event that occurred while at [facility] prior to presentation. She was found by EMS to have a blood glucose level that was 50 mg/dl on arrival to [facility] by EMS. She was given an AMP of D50 and brought to [facility] ER by EMS. While at [facility] she continued to be hypoglycemic and required an additional amp of D50, blood glucose was noted to be <49, during her work-up at [facility], Troponin was found to be elevated at 327. EKG showed Sinus Tachycardia with HR of [address] segment elevation or depression. She was noted to have a diabetic ulcer on the Right heel and WBC was elevated at 17.2. She was transferred to [facility] for higher level of care and for Cardiology evaluation due to elevated troponin and non-healing right foot ulcer. Discussion was undertaken with Cardiology who recommends an Echo, the patient had a recent CABG x 3 in 11/2021 and an MADISON and Cardiac monitoring. At the outside facility the patient received Heparin, Brilinta, Atorvastatin at 1L Normal Saline. The plan of care was discussed with the patient on admission. She verbalized understanding and agreement with the plan of care. Podiatry: Consulted for right heel cellulitis and diabetic ulcer. Patient reports she has had the wound for 2-3 weeks. Prior to the wound she denies having any problem with the feet. She is diabetic, well controlled she reports at home. She states she lives at home by herself but has a brother and sister in the area. She is currently not working. Reports pain to the right foot with pressure and trying to walk. [facility] Disclaimer: The information contained in this section may have been updated after the patient was seen, as this information can be updated by other users. Medical History Diabetes Elevated HDL HTN (hypertension) Hypothyroid Surgical History S/P CABG x 3 Family History Hypothyroid Mother Sister Lung cancer Father COPD (chronic obstructive pulmonary disease) Father Hypertension Brother Mother Father Social History Smoking Status: Former smoker years smoked: 2 alcohol intake: never current occupational status: unemployed Travel in the last 8 weeks: None adopted: No caregiver/support person: Yes ([employer]) foster care: No household members: none housing: house lives independently: Yes marital status: single number of children: 0 number of grandchildren: 0 education level: high school service: No detention: No current occupational exposures/hazards: No pets and animals: No leisure activities: other sexually active: No diet: diabetic well-balanced diet: about half the time caffeine: No physical activity: walking frequency: 1-2 times per week Review of Systems Review of Systems Review of systems:: pertinent systems reviewed and negative unless documented below Constitutional Constitutional: Reports system reviewed and no additional complaints, except as documented Eyes Eyes: Reports system reviewed and no additional complaints, except as documented ENT Ears, Nose, Mouth, and Throat: Reports dizziness *Cardiovascular Cardiovascular: Reports system reviewed and no additional complaints, except as documented *Respiratory Respiratory: Reports system reviewed and no additional complaints, except as documented *Gastrointestinal Gastrointestinal: Reports system reviewed and no additional complaints, except as documented *Genitourinary Genitourinary: Reports system reviewed and
--- NOTE | 2022-07-28 08:51 | US_ITS ---
FINAL REPORT CLINICAL HISTORY: WOUND RIGHT HEEL,DM,CAD,,HTN,HLD,CLAUDICATION,REST PAIN FINDINGS: ANKLE-BRACHIAL PRESSURE INDICES Pressure indices are as follows: RIGHT LOWER EXTREMITY: Ankle-brachial pressure index: 0.95 Comments: Normal waveforms and normal pulses. LEFT LOWER EXTREMITY: Ankle-brachial pressure index: 1.16 Comments: Normal waveforms and normal pulses. CONCLUSION: No evidence of significant obstructive peripheral vascular disease of the lower extremities. Borderline MADISON on the right lower extremity. Reviewed, Interpreted and Dictated by Sarah Moreno MD Transcribed by Shanae Cerna Authenticated and [facility]
--- NOTE | 2022-07-28 09:19 | EXP.CARD.CON ---
History of Present Illness History of Present Illness Consult date: 07/28/22 Requesting physician: Clyde Stroud Chief complaint: syncope History of present illness: This is a 62-year-old white female who presented to the emergency department at [facility] after syncopal episode at [facility]. The patient states that she had gotten to [facility] and was getting out of her truck and going to get into a motorized scooter when she had sudden onset of syncope. Her reports that she vomited all over herself when she had the syncopal episode. She denies any symptoms prior to the episode of syncope. She denies any chest pain or pressure. She denies any shortness of breath. She does state that she has some edema in her right lower extremity due to an ulcer on her right heel that has been persistent for quite some time. EMS found that the patient had a blood sugar around 50 mg/dL is on arrival to [facility]. It was documented that her blood sugars were in the 30s at one point as well. She was given an amp of D50 and brought to [facility]. While in [facility] the patient's blood glucose was less than 49 mg/dL and she had an elevated high-sensitivity troponin. The patient was transferred here to [facility]. Her troponins have been negative. She continues to deny any chest pain or pressure. She was initially treated with dextrose and IV fluids secondary to her hypoglycemia. The patient did become short of breath and had an elevated BNP at 7860. The patient was started on IV Lasix yesterday and her symptoms have improved. This morning she denies any shortness of breath. She still has some edema in her right lower extremity. Podiatry has been consulted for the ulceration to her right heel. She denies any fever, chills, nausea, vomiting, diarrhea, PND or orthopnea. [facility] Disclaimer: The information contained in this section may have been updated after the patient was seen, as this information can be updated by other users. Medical History (Updated 07/28/22 @ 09:27 by Stephany Soares APRN) Coronary artery disease Diabetes Diastolic congestive heart failure Elevated HDL HTN (hypertension) Hyperlipidemia Hypertension Hypothyroid Surgical History (Updated 07/28/22 @ 09:26 by Stephany Soares APRN) S/P CABG x 3 Family History Hypothyroid Mother Sister Lung cancer Father COPD (chronic obstructive pulmonary disease) Father Hypertension Brother Mother Father Social History Smoking Status: Former smoker years smoked: 2 alcohol intake: never current occupational status: unemployed Travel in the last 8 weeks: None adopted: No caregiver/support person: Yes ([employer]) foster care: No household members: none housing: house lives independently: Yes marital status: single number of children: 0 number of grandchildren: 0 education level: high school service: No usp: No current occupational exposures/hazards: No pets and animals: No leisure activities: other sexually active: No diet: diabetic well-balanced diet: about half the time caffeine: No physical activity: walking frequency: 1-2 times per week Review of Systems Review of Systems Review of systems:: pertinent systems reviewed and negative unless documented below Constitutional Constitutional: Reports system reviewed and no additional complaints, except as documented Eyes Eyes: Reports system reviewed and no additional complaints, except as documented ENT Ears, Nose, Mouth, and Throat: Reports system reviewed and no additional complaints, except as documented *Cardiovascular Cardiovascular: Reports system reviewed and no additional complaints, except as documented, Reports dyspnea on exertion, Reports leg edema (Right lower extremity) and Reports syncope
--- NOTE | 2022-07-28 10:31 | HMH.OTEV ---
OT Inpatient Evaluation Rehab OT IP Evaluation Start: 07/27/22 09:32 Freq: ONCE Status: Active Protocol: Document 07/28/22 10:01 DEVIN (Rec: 07/28/22 10:28 DEVIN [id number]) Rehab OT IP Assessment Subjective History Pt was seen resting in the chair upon arrivial. Pt was oriented x3 person, place, and . Pt was agreeable to engage in therapy evaluation. Pt was admitted to [facility] on 07/25 due to Syncope, Hypoglycemia. Pt reports that she was independent in all ADLs and IADLs. She reports that she completes all cooking and cleaning tasks at home. Pt reports that she lives alone. She reports that there are four steps upon entering in the home from the front door, and three steps from entering in the back door. Pt reports that there are no steps inside the house. She reports that she is still able to drive, and she goes with her brother for grocery shopping. Pt reports that she uses a cane when for outings outside the house, and has access to a rolling walker. Pt reports that her brother is not able to assist her due to his work schedule. Pt has a past medical history of the following: Diabetes Elevated HDL HTN (hypertension) Hypothyroid Pt was left resting in chair with call santillan and all other needs within reach. Subjective I just struggle getting up from the toilet. Objective Patient Orientation Person,Place,Birthday Upper Extremity Gross ROM WNL Transfer Training Sit/Stand Transfer Assist Level Contact Guard/Hand Hold Chair Transfer Ability Contact Guard/Hand Hold Chair Transfer Technique Sit to/from Ambulatory Chair Transfer Assistive Devices [place]
--- NOTE | 2022-07-28 10:33 | HMH.PTEV ---
Physical Therapy Evaluation Rehab PT IP Evaluation Start: 07/27/22 09:32 Freq: ONCE Status: Active Protocol: Document 07/28/22 09:00 FLEX (Rec: 07/28/22 10:33 PHORMAURISIO [id number]) Subjective/History History History 62 yowf adm to [facility] with TYLOR, anemia, sepsis, CHF exac. T/F from outside hospital. She also has a pre-existing wound on her R foot. She reports she lives alone, 1-2 steps to entert he home and she uses a RW for all ambulation at baseline. Subjective Subjective Pt reports feeling better overall, only c/o is she has difficulty gettign up from the toilet at home at baseline. Rehab PT IP Eval Objective Appearance Patient Behavior Appropriate Patient Orientation Person,Place,Time Difficulty following instructions none Speech Pattern Clear Ambulation Patient Able to Ambulate Yes Ambulation Observation IP General Gait Pattern Observation Shuffling Step Ambulation Distance (feet) 30 Ambulation Assistive Device Rolling Walker Ambulation Ability Supervision/Stand by Balance Ability to Arise Able, uses arms to help Sitting Balance Steady, safe Standing Balance Steady, wide stance Dynamic Sitting Balance Ability Good Dynamic Standing Balance Ability Fair Transfers Bed Transfer Ability Contact Guard/Hand Hold Chair Transfer Ability Contact Guard/Hand Hold Sit to Stand Bed Transfer Ability Contact Guard/Hand Hold Sit to Stand Chair Transfer Ability Contact Guard/Hand Hold Rehab PT IP prob,goals,plan Problems Date of Evaluation: 07/28/22 Discharge Plan PT Discharge Plan Pt currently appears to be at baseline for all mobility and is appropriate to return home once medically stable. This may change overt he cours eof the next day as she is scheduled for a wound debridement procedure in the am. Mobility may be more difficulty depending on the extent of the debridement that is scheduled to be performed. If mobility status changes, therapy will reevaluate her status. G -code Required
[2022-07-28 10:55] LABS: POC Glucose,Bedside 168 (70-110)
[2022-07-28 11:04] VITALS: BMI 31.4
[2022-07-28 11:06] VITALS: BP 121/70; PULSE 71; RESP 17; TEMP 36.8; O2SAT 100
--- NOTE | 2022-07-28 11:49 | PC.NURSE ---
Pt up ambulating in narvaez with walker. Tolerating well.
--- NOTE | 2022-07-28 13:36 | CARE MANAGER ---
Met with patient at bedside to discuss DME needs at discharge. Patient states that she has a walker, but feels that she would benefit from a BSC. Patient Choice signed for [facility], and I plan to order on day of discharge.
--- NOTE | 2022-07-28 14:24 | PC.NURSE ---
Report given to Jhony Gallegos RN
[2022-07-28 15:14] VITALS: BP 135/62; PULSE 74; RESP 18; TEMP 36.8; O2SAT 99
[2022-07-28 15:46] LABS: C-Peptide 20.3 ng/mL (1.1-4.4); Insulin Level Total 52.7 uIU/mL (2.6-24.9)
[2022-07-28 18:57] LABS: Chloride 110 mmol/L (98-107)
[2022-07-28 18:58] LABS: Potassium 4.1 mmoL/L (3.5-5.1); Sodium 133 mmol/L (136-145)
[2022-07-28 19:00] LABS: Blood Urea Nitrogen 40 mg/dl (7-17); Creatinine Clearance Estimated 46 mL/min (50-200); Estimated Glomerular Filt Rate 27 ml/min (>60); GFR (African American) 32 ML/MIN (>60)
[2022-07-28 19:01] LABS: Anion Gap 10.1 mEq/L (5-15); Calcium 8.3 mg/dl (8.4-10.2); Carbon Dioxide 17 mmol/L (22.0-30.0); Glucose 221 mg/dl (74-100)
--- NOTE | 2022-07-28 19:23 | PC.NURSE ---
Pt has been up to chair today and has ambulated in hallway. Tolerated well. VSS. No complaints voiced to staff.
[2022-07-28 19:28] LABS: POC Glucose,Bedside 223 (70-110)
[2022-07-28 20:00] VITALS: BP 139/65; PULSE 94; RESP 16; TEMP 37.1; O2SAT 100
[2022-07-28 22:23] LABS: POC Glucose,Bedside 189 (70-110)
[2022-07-28 23:32] VITALS: BP 134/65; PULSE 77; RESP 16; TEMP 37; O2SAT 96
[2022-07-28 23:49] LABS: Vancomycin,Trough 17.6 ug/mL (5.0-10.0)
[2022-07-29] VITALS (40 sets, daily range): BP systolic 84–174; BP diastolic 50–94; PULSE 55–85; RESP 11–18; TEMP 36.2–43; O2SAT 96–100; BMI 31.4
[2022-07-29 04:28] LABS: Basophils # 0.1 K/mm3 (0-0.2); Basophils % 0.7 % (0.1-2.0); Eosinophils # 0.3 K/mm3 (0.0-0.4); Eosinophils % 2.3 % (0.1-12.0); Lymphocytes # 1.7 K/mm3 (0.7-4.5); Lymphocytes % 15.4 % (10-50); Mean Corpuscular HGB Conc 33.5 g/dL (31.8-35.4); Mean Corpuscular Hemoglobin 28.5 pg (27.0-31.2); Mean Corpuscular Volume 85.1 fl (81-99); Monocytes # 0.9 K/mm3 (0.1-1.0); Monocytes % 7.8 % (1.7-9.3); Neutrophils # 8.1 K/mm3 (1.8-7.8); Neutrophils % 73.7 % (37.0-80.0); Platelet Count 395 K/mm3 (142-424); Red Blood Count 2.39 M/mm3 (4.20-5.40); Red Cell Distribution Width 14.4 % (11.5-17.5); White Blood Count 10.9 K/mm3 (4.8-10.8)
[2022-07-29 04:34] LABS: Chloride 112 mmol/L (98-107); Sodium 133 mmol/L (136-145)
[2022-07-29 04:37] LABS: Alanine Aminotransferase 36 U/L (12-78); Alkaline Phosphatase 124 U/L (38-126); Aspartate Amino Transferase 33 U/L (14-36); Bilirubin,Total 0.2 mg/dl (0.2-1.3); Blood Urea Nitrogen 40 mg/dl (7-17); Carbon Dioxide 14 mmol/L (22.0-30.0); Chol/HDL Ratio 4.3 (1-3.5); Cholesterol 77 mg/dl (140-200); Creatinine Clearance Estimated 46 mL/min (50-200); Estimated Glomerular Filt Rate 27 ml/min (>60); GFR (African American) 32 ML/MIN (>60); HDL Cholesterol 18 mg/dl (40-60); Hemoglobin 6.8 g/dL (12.2-16.2); Triglycerides 139 mg/dl (30-150); VLDL Cholesterol 28 mg/dL (0-40)
[2022-07-29 04:38] LABS: Albumin Level 2.6 g/dl (3.5-5.0); Albumin/Globulin Ratio 0.9 (1.1-1.8); Globulin 2.9 g/dL (1.3-3.2); Glucose 172 mg/dl (74-100); Hematocrit 20.3 % (37.0-47.0); Magnesium 1.8 mg/dl (1.6-2.3); Total Protein,Serum 5.5 g/dl (6.3-8.2)
[2022-07-29 04:43] LABS: C-Reactive Protein 83.1 mg/L (0-4)
[2022-07-29 04:48] LABS: Direct LDL Cholesterol 34.35 mg/dL (100-129)
--- NOTE | 2022-07-29 04:51 | PC.NURSE ---
Notified lab need for cross match on 2u PRBC.
[2022-07-29 05:16] LABS: Vancomycin,Peak 40.3 ug/ml (11-39)
[2022-07-29 05:22] LABS: Erythrocyte Sedimentation Rate > 140 mm/hr (0-30)
[2022-07-29 06:29] LABS: POC Glucose,Bedside 200 (70-110)
--- NOTE | 2022-07-29 07:56 | EXP.ORTH.PN ---
Subjective *Date: 07/29/22 *Time: 08:48 Interval history: Patient resting in bed alert and oriented x 3. No acute distress noted. Receiving blood transfusion. NPO for right heel wound debridement today by . Right foot and ankle remains edematous and painful. Right heel wound dressing change. Patient made no request. Ortho Exam (Inpt) Vital signs and Labs for Last 24 Hours: Temp Pulse Resp BP Pulse Ox 98.5 F 69 16 130/61 100 07/29/22 07:09 07/29/22 07:09 07/29/22 07:09 07/29/22 07:09 07/29/22 07:09 Laboratory Results - last 24 hr 07/26/22 08:05: Total Insulin 52.7 H, C-Peptide 20.3 H 07/28/22 09:10: Blood Type O Positive, Antibody Screen Negative, Crossmatch (AHG) See Detail 07/28/22 10:47: POC Glucose 168 H 07/28/22 16:57: POC Glucose 223 H 07/28/22 18:18: Sodium 133 L, Potassium 4.1, Chloride 110 H, Carbon Dioxide 17 L, Anion Gap 10.1, BUN 40 H, Creatinine 1.90 H, Estimated Creat Clear 46, Estimated GFR 27 L, Est GFR ( Amer) 32 L, Glucose 221 H D, Calcium 8.3 L 07/28/22 22:07: POC Glucose 189 H 07/28/22 23:10: Vancomycin Trough 17.6 H 07/29/22 04:15: Vancomycin Peak 40.3 H* 07/29/22 04:15: WBC 10.9 H, RBC 2.39 L, Hgb 6.8 L*, Hct 20.3 L*, MCV 85.1, MCH 28.5, MCHC 33.5, RDW 14.4, Plt Count 395, MPV 8.0, Neut % (Auto) 73.7, Lymph % (Auto) 15.4, Swain % (Auto) 7.8, Eos % (Auto) 2.3, Baso % (Auto) 0.7, Neut # (Auto) 8.1 H, Lymph # (Auto) 1.7, Swain # (Auto) 0.9, Eos # (Auto) 0.3, Baso # (Auto) 0.1, ESR > 140 H 07/29/22 04:15: Sodium 133 L, Potassium 4.0, Chloride 112 H, Carbon Dioxide 14 L, Anion Gap 11.0, BUN 40 H, Creatinine 1.90 H, Estimated Creat Clear 46, Estimated GFR 27 L, Est GFR ( Amer) 32 L, Glucose 172 H D, Calcium 8.0 L, Magnesium 1.8, Total Bilirubin 0.2, AST 33 D, ALT 36, Alkaline Phosphatase 124, C-Reactive Protein 83.1 H, Total Protein 5.5 L, Albumin 2.6 L, Globulin 2.9, Albumin/Globulin Ratio 0.9 L 07/29/22 04:15: Triglycerides 139, Cholesterol 77 L, LDL Cholesterol Direct 34.35 L, VLDL Cholesterol 28, HDL Cholesterol 18 L, Cholesterol/HDL Ratio 4.3 H 07/29/22 04:15: Blood Type Confirm O Positive 07/29/22 06:00: POC Glucose 200 H I & O for Labs for Last 24 Hours: Intake & Output 07/26/22 07/27/22 07/28/22 07/29/22 23:59 23:59 23:59 23:59 Intake Total 2309 / 2309 2972 / 3212 820 / 820 0 / 0 Output Total 900 / 900 2350 / 2350 500 / 500 Balance 1409 / 1409 622 / 862 320 / 320 0 / 0 Weight 204 lb 2.369 oz 208 lb 8.917 oz 207 lb 10.807 oz 207 lb 4.8 oz Microbiology Reports for the Last 24 Hours: Microbiology 07/26/22 02:44 Throat Group A Streptococcus Screen (CARMEN) - Final Negative for Group A Streptococcus. 07/28/22 Unknown Foot,Right - Wound Gram Stain - Final Constitutional: Present no acute distress Head: Present normocephalic Neck: Present normal inspection Respiratory: Present normal respiratory effort and able to speak in complete sentences Cardiac: Present Regular Rate and pedal pulses present (weakly palpable) Comment:: No distal leg or pedal hair growth bilaterally GI: Present soft and other Rectal (female): Present deferred (female): Present deferred Extremities: Present tenderness (right heel), normal capillary refill (decreased) and edema (right foot) Skin: Present erythema, warm and wounds Comment:: Right heel has localized edema and erythema to the posterior and inferior aspect. Skin sloughing noted. There is a 4 x 4 cm area of redness/tenderness. There is a 0.5 x 0.5 x 0.4 cm wound, 100% yellow slough fibrotic with purulent drainage that extends through skin and subcutaneous tissue to deep fascia, wound culture taken. There is a 1 x 1 x 0.0 cm wound 100% black eschar. No deep opening that probes to bone. Concern with underlying abscess. Neuro: Present Motor Function Intact, Sensory Function Intact, oriented x 3 and moves all extremities Ankle: right: swelling (right foot/distal ankle) and right: tenderness (posterior heel
--- NOTE | 2022-07-29 08:36 | EXP.PHA.CONS ---
Pharmacy Consult Date: 07/29/22 Time: 08:36 Referring provider: DR ZAMUDIO Reason for Consult:: VANCOMYCIN DOSE ADJUSTMENT BASED ON PEAK AND TROUGH LEVELS Allergies Allergy/AdvReac Type Severity Reaction Status Date / Time No Known Allergies Allergy Verified 07/25/22 22:09 Home Medications Medication Instructions Recorded Confirmed Type atorvastatin 40 mg tablet 40 mg PO HS High cholesterol 07/25/22 07/25/22 History empagliflozin 10 mg tablet 10 mg PO AM Diabetes 07/25/22 07/25/22 History (Jardiance) glimepiride 4 mg tablet 4 mg PO DAILYDM Diabetes 07/25/22 07/26/22 History levothyroxine 75 mcg tablet 75 mcg PO DAILYDM hypothyroidism 07/25/22 07/26/22 History lisinopril 20 mg tablet 20 mg PO AM Hypertension 07/25/22 07/25/22 History metformin 1,000 mg tablet 1,000 mg PO BIDWMEAL Diabetes 07/25/22 07/26/22 History metoprolol tartrate 25 mg tablet 12.5 mg PO BID Hypertension 07/25/22 07/26/22 History New Prescriptions to Start Prescriptions: Height: 1.73 m Weight: 94.03 kg Laboratory Results:: Laboratory Results - last 24 hr 07/26/22 08:05: Total Insulin 52.7 H, C-Peptide 20.3 H 07/28/22 09:10: Blood Type O Positive, Antibody Screen Negative, Crossmatch (AHG) See Detail 07/28/22 10:47: POC Glucose 168 H 07/28/22 16:57: POC Glucose 223 H 07/28/22 18:18: Sodium 133 L, Potassium 4.1, Chloride 110 H, Carbon Dioxide 17 L, Anion Gap 10.1, BUN 40 H, Creatinine 1.90 H, Estimated Creat Clear 46, Estimated GFR 27 L, Est GFR ( Amer) 32 L, Glucose 221 H D, Calcium 8.3 L 07/28/22 22:07: POC Glucose 189 H 07/28/22 23:10: Vancomycin Trough 17.6 H 07/29/22 04:15: Vancomycin Peak 40.3 H* 07/29/22 04:15: WBC 10.9 H, RBC 2.39 L, Hgb 6.8 L*, Hct 20.3 L*, MCV 85.1, MCH 28.5, MCHC 33.5, RDW 14.4, Plt Count 395, MPV 8.0, Neut % (Auto) 73.7, Lymph % (Auto) 15.4, Mcminn % (Auto) 7.8, Eos % (Auto) 2.3, Baso % (Auto) 0.7, Neut # (Auto) 8.1 H, Lymph # (Auto) 1.7, Mcminn # (Auto) 0.9, Eos # (Auto) 0.3, Baso # (Auto) 0.1, ESR > 140 H 07/29/22 04:15: Sodium 133 L, Potassium 4.0, Chloride 112 H, Carbon Dioxide 14 L, Anion Gap 11.0, BUN 40 H, Creatinine 1.90 H, Estimated Creat Clear 46, Estimated GFR 27 L, Est GFR ( Amer) 32 L, Glucose 172 H D, Calcium 8.0 L, Magnesium 1.8, Total Bilirubin 0.2, AST 33 D, ALT 36, Alkaline Phosphatase 124, C-Reactive Protein 83.1 H, Total Protein 5.5 L, Albumin 2.6 L, Globulin 2.9, Albumin/Globulin Ratio 0.9 L 07/29/22 04:15: Triglycerides 139, Cholesterol 77 L, LDL Cholesterol Direct 34.35 L, VLDL Cholesterol 28, HDL Cholesterol 18 L, Cholesterol/HDL Ratio 4.3 H 07/29/22 04:15: Blood Type Confirm O Positive 07/29/22 06:00: POC Glucose 200 H Medical History: Medical History (Updated 07/28/22 @ 09:27 by Stephany Soares APRN) Coronary artery disease Diabetes Diastolic congestive heart failure Elevated HDL HTN (hypertension) Hyperlipidemia Hypertension Hypothyroid Assessment and Plan Assessment and plan all Dx Assessment and Plan for all problems:: RECOMMENDED DOSE AND PREDICTED LEVELS Based on a selected AUC 0-24 of 500 mg?h/liter Recommended dose: 1465 mg Recommended Interval: 31 hrs Predicted peak: 35.0 mcg/ml. Predicted trough: 12.51 mcg/ml. AUC 0-24 /CARMEN (based on an CARMEN of 1 mg/L): 527.6 ~Target: 400 - 600. ENTER NEW (ROUNDED VALUES) Enter New dose: 1250 mg New interval: 24 hrs FINAL VALUES - NEW REGIMEN Predicted values: PEAK: 32.8 mcg/ml TROUGH: 15.19 mcg/ml AUC 0-24 /CARMEN Data: CARMEN 0.5 mcg/mL: AUC/CARMEN: 1101.8 CARMEN 1.0 mcg/mL: AUC/CARMEN: 550.9 CARMEN 1.5 mcg/mL: AUC/CARMEN: 367.3 RECOMMENDATION: CHANGE TO GIVE IV VANCOMYCIN 1250 MG Q24H TO START 07/29/22 AT 23:00
--- NOTE | 2022-07-29 10:25 | EXP.CARD.PN ---
Subjective Subjective Date: 07/29/22 Time: 09:00 Principal diagnosis: syncope Interval history: This is a 62-year-old white female who presented to the emergency department at [facility] after syncopal episode at [facility]. The patient was found to be hypoglycemic and she did have an elevated high-sensitivity troponin. The patient was transferred here to [facility]. She was treated for her hypoglycemia and her troponin here was negative. She denies any chest pain or pressure this morning. She denies any shortness of breath. She still has edema in her right lower extremity. She denies any fever, chills, nausea, vomiting, diarrhea, PND or orthopnea. The patient is scheduled to undergo I&D of the ulcer to her right lower extremity today with podiatry. Exam Data for Last 24 hours Vital signs and Labs for Last 24 Hours: Temp Pulse Resp BP Pulse Ox 98.3 F 69 16 118/56 L 98 07/29/22 07:21 07/29/22 07:21 07/29/22 07:21 07/29/22 07:21 07/29/22 07:21 Laboratory Results - last 24 hr 07/26/22 08:05: Total Insulin 52.7 H, C-Peptide 20.3 H 07/28/22 09:10: Blood Type O Positive, Antibody Screen Negative, Crossmatch (AHG) See Detail 07/28/22 10:47: POC Glucose 168 H 07/28/22 16:57: POC Glucose 223 H 07/28/22 18:18: Sodium 133 L, Potassium 4.1, Chloride 110 H, Carbon Dioxide 17 L, Anion Gap 10.1, BUN 40 H, Creatinine 1.90 H, Estimated Creat Clear 46, Estimated GFR 27 L, Est GFR ( Amer) 32 L, Glucose 221 H D, Calcium 8.3 L 07/28/22 22:07: POC Glucose 189 H 07/28/22 23:10: Vancomycin Trough 17.6 H 07/29/22 04:15: Vancomycin Peak 40.3 H* 07/29/22 04:15: WBC 10.9 H, RBC 2.39 L, Hgb 6.8 L*, Hct 20.3 L*, MCV 85.1, MCH 28.5, MCHC 33.5, RDW 14.4, Plt Count 395, MPV 8.0, Neut % (Auto) 73.7, Lymph % (Auto) 15.4, [place] % (Auto) 7.8, Eos % (Auto) 2.3, Baso % (Auto) 0.7, Neut # (Auto) 8.1 H, Lymph # (Auto) 1.7, [place] # (Auto) 0.9, Eos # (Auto) 0.3, Baso # (Auto) 0.1, ESR > 140 H 07/29/22 04:15: Sodium 133 L, Potassium 4.0, Chloride 112 H, Carbon Dioxide 14 L, Anion Gap 11.0, BUN 40 H, Creatinine 1.90 H, Estimated Creat Clear 46, Estimated GFR 27 L, Est GFR ( Amer) 32 L, Glucose 172 H D, Calcium 8.0 L, Magnesium 1.8, Total Bilirubin 0.2, AST 33 D, ALT 36, Alkaline Phosphatase 124, C-Reactive Protein 83.1 H, Total Protein 5.5 L, Albumin 2.6 L, Globulin 2.9, Albumin/Globulin Ratio 0.9 L 07/29/22 04:15: Triglycerides 139, Cholesterol 77 L, LDL Cholesterol Direct 34.35 L, VLDL Cholesterol 28, HDL Cholesterol 18 L, Cholesterol/HDL Ratio 4.3 H 07/29/22 04:15: Blood Type Confirm O Positive 07/29/22 06:00: POC Glucose 200 H I & O for Last 24 hours: Intake & Output 07/26/22 07/27/22 07/28/22 07/29/22 23:59 23:59 23:59 23:59 Intake Total 2309 / 2309 2972 / 3212 820 / 820 0 / 0 Output Total 900 / 900 2350 / 2350 500 / 500 0 / 0 Balance 1409 / 1409 622 / 862 320 / 320 0 / 0 Weight 204 lb 2.369 oz 208 lb 8.917 oz 207 lb 10.807 oz 207 lb 4.8 oz Microbiology Reports for the Last 24 Hours: Microbiology 07/28/22 Unknown Foot,Right - Wound Gram Stain - Final 07/28/22 Unknown Foot,Right - Wound Wound Culture - Preliminary NO GROWTH AFTER 24 HOURS 07/26/22 02:44 Throat Group A Streptococcus Screen (CARMEN) - Final Negative for Group A Streptococcus. Constitutional Constitutional: no acute distress and obese *Routine HEENT Exam Head: Present normocephalic and atraumatic ENT: Present mucous membranes moist *Routine Neck Exam Neck: Present supple, full ROM and normal carotid upstroke; Absent JVD, carotid bruit or lymphadenopathy *Routine Respiratory Exam Respiratory: Present CTA bilaterally, normal respiratory effort, able to speak in complete sentences and symmetric chest movement *Routine Cardiovascular Exam Cardiovascular: Present RRR, Normal S1 and Normal S2; Absent murmur or gallop *Routine Abdominal Exam Abdominal: Present soft and normoactive bowel so
--- NOTE | 2022-07-29 11:36 | EXP.ACUTE.PN ---
Subjective *Date: 07/29/22 *Time: 11:36 Interval history: Patient pleasant and interactive this morning. Stable on room air. More weak and fatigued. Hemoglobin down to 6.8 this morning. Currently being transfused 1 unit prior to debridement of her ankle. Will receive a second unit later this morning. Denies fever, chest pain, shortness of breath, nausea or vomiting. No active signs of bleeding. Medical Exam Vital signs and Labs for Last 24 Hours: Vital Signs Temp Pulse Pulse Resp BP BP Pulse Ox 07/29/22 10:35 97.9 F 67 16 133/67 100 07/29/22 09:35 98.2 F 70 16 138/69 100 07/29/22 08:51 98.2 F 69 16 133/71 98 07/29/22 07:51 98.4 F 72 16 125/67 100 07/29/22 07:36 98.6 F 67 18 120/60 98 07/29/22 07:21 98.3 F 69 16 118/56 L 98 07/29/22 07:09 98.5 F 69 16 130/61 100 07/29/22 07:09 98.5 F 69 16 130/61 100 07/29/22 07:04 98.5 F 69 16 131/66 99 07/29/22 06:56 98.2 F 68 16 134/66 99 07/29/22 06:47 98.4 F 69 16 134/68 100 07/29/22 06:46 98.2 F 69 16 136/62 100 07/29/22 04:00 98.1 F 72 17 128/74 96 07/29/22 00:00 98.6 F 77 16 134/65 96 07/28/22 23:32 98.6 F 77 16 134/65 96 07/28/22 20:00 98.7 F 94 H 16 139/65 100 07/28/22 15:14 98.3 F 74 18 135/62 99 Intake and Output 07/28/22 07/29/22 07/29/22 23:59 07:59 15:59 Intake Total 240 / 820 0 / 250 250 / 250 Output Total 100 / 500 200 / 200 Balance 140 / 320 0 / 50 50 / 50 Intake: Intake, Oral Amount 240 / 720 Intake (Blood Product) Amt 0 / 250 250 / 250 Red Blood Cells Unit 0 / 250 250 / 250 [id number] Output: Output, Urine Amount 100 / 500 200 / 200 Other: Number of Voids 0 Number of Unmeasured Voids 1 Number of Bowel Movements 0 Weight 94.03 kg 94.03 kg Patient Weight 07/29/22 23:59 Weight 94.03 kg Laboratory Results - last 24 hr 07/26/22 08:05: Total Insulin 52.7 H, C-Peptide 20.3 H 07/28/22 09:10: Blood Type O Positive, Antibody Screen Negative, Crossmatch (AHG) See Detail 07/28/22 16:57: POC Glucose 223 H 07/28/22 18:18: Sodium 133 L, Potassium 4.1, Chloride 110 H, Carbon Dioxide 17 L, Anion Gap 10.1, BUN 40 H, Creatinine 1.90 H, Estimated Creat Clear 46, Estimated GFR 27 L, Est GFR ( Amer) 32 L, Glucose 221 H D, Calcium 8.3 L 07/28/22 22:07: POC Glucose 189 H 07/28/22 23:10: Vancomycin Trough 17.6 H 07/29/22 04:15: Vancomycin Peak 40.3 H* 07/29/22 04:15: WBC 10.9 H, RBC 2.39 L, Hgb 6.8 L*, Hct 20.3 L*, MCV 85.1, MCH 28.5, MCHC 33.5, RDW 14.4, Plt Count 395, MPV 8.0, Neut % (Auto) 73.7, Lymph % (Auto) 15.4, [place] % (Auto) 7.8, Eos % (Auto) 2.3, Baso % (Auto) 0.7, Neut # (Auto) 8.1 H, Lymph # (Auto) 1.7, [place] # (Auto) 0.9, Eos # (Auto) 0.3, Baso # (Auto) 0.1, ESR > 140 H 07/29/22 04:15: Sodium 133 L, Potassium 4.0, Chloride 112 H, Carbon Dioxide 14 L, Anion Gap 11.0, BUN 40 H, Creatinine 1.90 H, Estimated Creat Clear 46, Estimated GFR 27 L, Est GFR ( Amer) 32 L, Glucose 172 H D, Calcium 8.0 L, Magnesium 1.8, Total Bilirubin 0.2, AST 33 D, ALT 36, Alkaline Phosphatase 124, C-Reactive Protein 83.1 H, Total Protein 5.5 L, Albumin 2.6 L, Globulin 2.9, Albumin/Globulin Ratio 0.9 L 07/29/22 04:15: Triglycerides 139, Cholesterol 77 L, LDL Cholesterol Direct 34.35 L, VLDL Cholesterol 28, HDL Cholesterol 18 L, Cholesterol/HDL Ratio 4.3 H 07/29/22 04:15: Blood Type Confirm O Positive 07/29/22 06:00: POC Glucose 200 H I & O for Labs for Last 24 Hours: Intake & Output 07/26/22 07/27/22 07/28/22 07/29/22 23:59 23:59 23:59 23:59 Intake Total 2309 / 2309 2972 / 3212 820 / 820 250 / 250 Output Total 900 / 900 2350 / 2350 500 / 500 200 / 200 Balance 1409 / 1409 622 / 862 320 / 320 50 / 50 Weight 92.6 kg 94.6 kg 94.2 kg 94.03 kg Microbiology Reports for the Last 24 Hours: Microbiology 07/28/22 Unknown Foot,Right - Wound Gram Stain - Final 07/28/22 Unknown Foot,Right - Wound Wou
--- NOTE | 2022-07-29 13:10 | P.PN_ITS ---
[facility] Disclaimer: The information contained in this section may have been updated after the patient was seen, as this information can be updated by other users. Medical History (Updated 07/28/22 @ 09:27 by Stephany Soares APRN) Coronary artery disease Diabetes Diastolic congestive heart failure Elevated HDL HTN (hypertension) Hyperlipidemia Hypertension Hypothyroid Surgical History (Updated 07/28/22 @ 09:26 by Stephany Soares APRN) S/P CABG x 3 Family History Hypothyroid Mother Sister Lung cancer Father COPD (chronic obstructive pulmonary disease) Father Hypertension Brother Mother Father Social History Smoking Status: Former smoker years smoked: 2 alcohol intake: never substance use type: denies use current occupational status: unemployed Travel in the last 8 weeks: None adopted: No caregiver/support person: Yes ([employer]) foster care: No household members: none housing: house lives independently: Yes marital status: single number of children: 0 number of grandchildren: 0 education level: high school service: No snf: No current occupational exposures/hazards: No pets and animals: No leisure activities: other sexually active: No diet: diabetic well-balanced diet: about half the time caffeine: No physical activity: walking frequency: 1-2 times per week [facility] Anesthesia Checklist Patient Identification Patient Identification: Arm Band and Verbal (Name & ) Structural Data Planned Operative Procedure/s: Right Foot I&D Consent for Planned Operative Procedure(s) Verified: Yes Verified Documents: Surgical Consent NPO Status Verified Time NPO: 00:00 Chart Verification Results Verified: H & H Additional verifications Anesthesia Reactions: No Airway Assessment C-Spine Mobility Assessed: Yes TMJ Mobility Assessed: Yes Dentition: Good Dentition Neurological Assessment Level of Consciousness: Awake, Alert and Appropriate Anesthesia Plan Anesthesia Risk discussed: Yes ASA Class: III Anesthesia Type: General
--- NOTE | 2022-07-29 14:30 | XR_ITS ---
FINAL REPORT CLINICAL HISTORY: Post op I D, bone biopsy COMPARISON: CT lower extremity dated 07/28/2022 FINDINGS: Axial and lateral views of the right calcaneus were obtained. There is high density material projected over the posterior calcaneus of uncertain etiology. This may have been placed during the bone biopsy. There is no acute fracture. Subcutaneous air is, presumably, postprocedural. IMPRESSION: High density material over the posterior calcaneus of uncertain etiology. Reviewed, Interpreted and Dictated by Sarah Moreno MD Transcribed by Bella Bucio Authenticated and . [facility]
--- NOTE | 2022-07-29 14:33 | EXP.ANES.I ---
[facility] Anesthesia Record Part I Anesthesia Record I Intake, IV Amount: 800 Estimated blood loss (mL): 20 Urine output (mL): 0 Blood Pressure: 129/62 SaO2: 97 Pulse Rate: 65 Respiratory Rate: 16 Temperature: 97.2 F Patient is:: Drowsy and Stable Stable to PACU at:: 14:29
--- NOTE | 2022-07-29 14:38 | EXP.OP.NOTE ---
Date of procedure: 07/29/22 Pre-op Diagnosis:: Right diabetic foot infection Right diabetic foot ulcer Right foot cellulitis, abscess Right calcaneal osteomyelitis Post-op Diagnosis:: Same Procedure performed:: Right foot I&D abscess Right foot I&D bone cortex Right foot wound, Achilles debridement Manual prep/insertion of drug delivery device intramedullary (ICD-10 [id number], cpt 64004) Partial excision calcaneal bone for osteomyelitis (07327) Surgeon:: Kareen Agustin DPM MATH TUTOR:: Yaya Cohen Anesthesia: local (20cc 0.5% marcaine plain) and LMA Estimated blood loss (mL): 20 Clinical Note:: Patient is a 62-year-old diabetic female who was admitted from an outside facility due to syncope, profoundly low blood pressure, elevated troponins and a diabetic foot ulcer.? She has been on IV antibiotics and IV glucose. Medical and cardiac clearance granted. Right foot x-rays, ABIs and CT scans were reviewed. We discussed conservative versus surgical treatment options. Conservative treatment options include local wound care, oral and IV antibiotics, change in shoe wear, taping/padding, and off-loading. We discussed surgical intervention for I&D of the abscess with bone biopsy and wound debridement. Patient also understands that they could have wound healing complications including delayed healing and infection. We discussed that if the wound does not heal, it is possible that they may need a more proximal amputation and could result in further loss of digits, loss of partial foot or loss of leg. We discussed the risks and benefits in great detail. Other surgical risks include: prolonged pain and swelling, further infection requiring oral or IV antibiotics, delay in healing of soft tissue or bone, nerve or blood vessel damage, CRPS/RSD, DVT, anesthesia complications, and even . All questions answered. Patient verbalized understanding. Consent obtained. Operative findings:: Right heel has localized edema and erythema to the posterior and inferior aspect.? Skin sloughing noted.? There is a 4 x 4 cm area of redness/tenderness.? There is a 0.5 x 0.5 x 0.4 cm wound, 100% yellow slough fibrotic with 5 cc of creamy brown purulent drainage that extends through skin and subcutaneous tissue to deep fascia, new wound culture taken.? There is a 1 x 1 x 0.0 cm wound 100% black sloughing and necrotic skin.? I&D through the open wounds. Wounds excised full thickness. The necrotic tissue extended full-thickness down to the level of the posterior calcaneus. There was purulence coming from the heel bone. The bone was soft and biopsy easily obtained due to the poor bone quality. Calcaneus suspicious for osteomyelitis given the purulence and soft crumbly malodorous bone. Distal Achilles insertion had some necrotic tissue which was sharply excisionally debrided. No infection appeared to track up the Achilles tendon. Infection seen localized posteriorly. It did not track inferiorly along the plantar fascia. Extensive heel bone debridement with partial excision and application of drug delivery device utilized to the area of suspected calcaneal osteomyelitis. Operative note:: On this date and time the patient was deemed an appropriate surgical candidate. With informed consent time patient was transferred from the preoperative holding area to the operating theater. LMA anesthesia induced. Right midcalf tourniquet applied at 225 mmHg. Right lower extremity was prepped and draped in normal sterile fashion. 20 cc of half percent Marcaine plain were infiltrated in distal leg ring block. Right foot incision and drainage abscess: Attention was directed to the right heel/foot where a edema and erythema were noted. There was some pustules and induration noted on the posterior and lateral aspect of the foot. A 15 blade was used to puncture the pustules posteriorly 1 cm deep and immediately 5 cc of serosanguineous drainage was expressed. Wound culture taken. Malodorous purulent discharge was
[2022-07-29 14:48] LABS: POC Glucose,Bedside 182 (70-110)
[2022-07-29 14:50] LABS: Basophils # 0.1 K/mm3 (0-0.2); Basophils % 0.7 % (0.1-2.0); Eosinophils # 0.4 K/mm3 (0.0-0.4); Eosinophils % 3.4 % (0.1-12.0); Lymphocytes # 1.3 K/mm3 (0.7-4.5); Lymphocytes % 11.9 % (10-50); Mean Corpuscular HGB Conc 33.3 g/dL (31.8-35.4); Mean Corpuscular Hemoglobin 28.5 pg (27.0-31.2); Mean Corpuscular Volume 85.8 fl (81-99); Mean Platelet Volume 7.8 fl (7.4-10.4); Monocytes # 0.7 K/mm3 (0.1-1.0); Monocytes % 6.6 % (1.7-9.3); Neutrophils # 8.3 K/mm3 (1.8-7.8); Neutrophils % 77.4 % (37.0-80.0); Platelet Count 380 K/mm3 (142-424); Red Blood Count 3.26 M/mm3 (4.20-5.40); Red Cell Distribution Width 14.9 % (11.5-17.5); White Blood Count 10.7 K/mm3 (4.8-10.8)
[2022-07-29 15:39] LABS: Hemoglobin 9.3 g/dL (12.2-16.2)
--- NOTE | 2022-07-29 17:36 | PC.NURSE ---
pt has been pleasant this shift. I&D to rt foot, dsg in place cdi. no wt bearing till after PT sees pt in the am. adequate uop. 2 units of blood admin this shift, tolerated well. pt c/o just now, relieved per mar, pt rated pain 6/10 at this moment. cb, personal items within reach no concerns at this time.
--- NOTE | 2022-07-29 21:18 | PC.NURSE ---
called and spoke with delfino regarding heparin dosing, delfino states ok to continue heparin as prescribed at this time.
[2022-07-29 21:48] LABS: POC Glucose,Bedside 161 (70-110)
[2022-07-30] VITALS (7 sets, daily range): BP systolic 121–158; BP diastolic 64–92; PULSE 61–76; RESP 16–18; TEMP 36.1–36.9; O2SAT 99–100; BMI 31.9
--- NOTE | 2022-07-30 00:02 | XR_ITS ---
FINAL REPORT CLINICAL HISTORY: Confirm PICC line placement COMPARISON: 07/25/2022 FINDINGS: A single PA view of the chest was obtained. There are postoperative changes from median sternotomy. A new right PICC line is present with its tip in the SVC. Mild cardiomegaly is stable. There are low lung volumes. There is no effusion or pneumothorax. No acute osseous abnormality is identified. IMPRESSION: 1. New right PICC line with its tip in the SVC. 2. Low lung volumes. Reviewed, Interpreted and Dictated by Sarah Moreno MD Transcribed by Shanae Cerna Authenticated and [facility]
--- NOTE | 2022-07-30 04:40 | PC.NURSE ---
pt s/p RLE surgery today, vss, no acute distress, dressing to rle with junior wrap intact, no drainage noted, rle with edema noted, cap refill <3 sec noted, pt able to wiggle toes and has + touch sensation, pt is alert and oriented x4, pt slept most of night with complaints of pain at this time and medicated as prescribed, pt instructed nwb after noted sitting on side of pt and pt verbalized understanding, rle elevated on pillow while laying in bed, no other issues or concerns noted at this time.
--- NOTE | 2022-07-30 05:25 | PC.NURSE ---
delfino kumar called to assess pt after noting pt with some disorientation to place, and when asked pt what her birthday was, pt kept repeating her name over. pt answer with birthday when asked what year it was, and pt answered mariana epperson when asked where she was, fsbs obtained 162, delfino at bedside, pt able to smile and hold arms out without difficulty, pt pallor in color, pure wick placed for some periods of incontinence, no acute distress noted at this time.
[2022-07-30 07:03] LABS: POC Glucose,Bedside 180 (70-110)
[2022-07-30 07:03] LABS: POC Glucose,Bedside 162 (70-110)
[2022-07-30 07:03] LABS: POC Glucose,Bedside 184 (70-110)
[2022-07-30 07:25] LABS: Monocytes # 0.6 K/mm3 (0.1-1.0); Red Cell Distribution Width 14.8 % (11.5-17.5)
--- NOTE | 2022-07-30 07:27 | EXP.ANES.II ---
[facility] Anesthesia Record Part II Anesthesia Record Part II Discharge Time: 14:58 Destination: Second Floor PACU nurse assessment reviewed?: Yes Patient Condition:: Good Anesthesia Complications:: None Swallowing reflex intact?: Yes Cyanosis?: No Blood Pressure: 135/65 Pulse Rate: 65 Temperature: 97 F Mental Status: Alert & Oriented Pain level:: 0 Nausea and/or vomitting:: None Intake, IV Amount: 0
[2022-07-30 07:35] LABS: Basophils # 0.2 K/mm3 (0-0.2); Basophils % 1.2 % (0.1-2.0); Eosinophils # 0.3 K/mm3 (0.0-0.4); Eosinophils % 2.2 % (0.1-12.0); Hematocrit 33.5 % (37.0-47.0); Lymphocytes # 1.2 K/mm3 (0.7-4.5); Lymphocytes % 7.9 % (10-50); Mean Corpuscular Volume 87.5 fl (81-99); Mean Platelet Volume 7.9 fl (7.4-10.4); Monocytes % 4.2 % (1.7-9.3); Neutrophils # 12.5 K/mm3 (1.8-7.8); Neutrophils % 84.6 % (37.0-80.0); Platelet Count 495 K/mm3 (142-424); Red Blood Count 3.83 M/mm3 (4.20-5.40); White Blood Count 14.8 K/mm3 (4.8-10.8)
[2022-07-30 07:38] LABS: Hemoglobin 10.7 g/dL (12.2-16.2)
[2022-07-30 07:41] LABS: Alanine Aminotransferase 37 U/L (12-78); Albumin Level 3.4 g/dl (3.5-5.0); Albumin/Globulin Ratio 0.9 (1.1-1.8); Alkaline Phosphatase 137 U/L (38-126); Anion Gap 15.2 mEq/L (5-15); Aspartate Amino Transferase 29 U/L (14-36); Bilirubin,Total 0.5 mg/dl (0.2-1.3); Blood Urea Nitrogen 39 mg/dl (7-17); Calcium 8.7 mg/dl (8.4-10.2); Carbon Dioxide 13 mmol/L (22.0-30.0); Chloride 110 mmol/L (98-107); Creatinine Clearance Estimated 46 mL/min (50-200); Estimated Glomerular Filt Rate 27 ml/min (>60); GFR (African American) 32 ML/MIN (>60); Globulin 3.6 g/dL (1.3-3.2); Glucose 164 mg/dl (74-100); Magnesium 1.9 mg/dl (1.6-2.3); Potassium 4.2 mmoL/L (3.5-5.1); Sodium 134 mmol/L (136-145)
--- NOTE | 2022-07-30 08:02 | EXP.ORTH.PN ---
Subjective *Date: 07/30/22 *Time: 14:23 Interval history: Patient resting in bed awake. Alert and oriented x 1, reoriented to place and time. Follows commands appropriately. No acute distress noted. Right heel wound dressing removed, incision with sutures and suture guard (ellyn-gaurd)x2 intact. Moderate serosanguineous drainage noted. Betadine soaked dressing reapplied. Patient tolerated with pain. Primary nurse notified to administer pain medication as needed. Ortho Exam (Inpt) Vital signs and Labs for Last 24 Hours: Temp Pulse Resp BP Pulse Ox 97 F L 65 18 135/65 99 07/30/22 07:28 07/30/22 07:28 07/30/22 07:24 07/30/22 07:28 07/30/22 07:24 Laboratory Results - last 24 hr 07/28/22 09:10: Blood Type O Positive, Antibody Screen Negative, Crossmatch (AHG) See Detail 07/29/22 14:40: WBC 10.7, RBC 3.26 L D, Hgb 9.3 L D, Hct 28.0 L, MCV 85.8, MCH 28.5, MCHC 33.3, RDW 14.9, Plt Count 380, MPV 7.8, Neut % (Auto) 77.4, Lymph % (Auto) 11.9, [place] % (Auto) 6.6, Eos % (Auto) 3.4, Baso % (Auto) 0.7, Neut # (Auto) 8.3 H, Lymph # (Auto) 1.3, [place] # (Auto) 0.7, Eos # (Auto) 0.4, Baso # (Auto) 0.1 07/29/22 14:41: POC Glucose 182 H 07/29/22 16:30: POC Glucose 180 H 07/29/22 21:27: POC Glucose 161 H 07/30/22 05:22: POC Glucose 162 H 07/30/22 06:50: POC Glucose 184 H 07/30/22 07:18: WBC 14.8 H D, RBC 3.83 L, Hgb 10.7 L D, Hct 33.5 L, MCV 87.5, MCH 28.0, MCHC 32.0, RDW 14.8, Plt Count 495 H D, MPV 7.9, Neut % (Auto) 84.6 H, Lymph % (Auto) 7.9 L, [place] % (Auto) 4.2, Eos % (Auto) 2.2, Baso % (Auto) 1.2, Neut # (Auto) 12.5 H, Lymph # (Auto) 1.2, [place] # (Auto) 0.6, Eos # (Auto) 0.3, Baso # (Auto) 0.2 07/30/22 07:18: Sodium 134 L, Potassium 4.2, Chloride 110 H, Carbon Dioxide 13 L, Anion Gap 15.2 H, BUN 39 H, Creatinine 1.90 H, Estimated Creat Clear 46, Estimated GFR 27 L, Est GFR ( Amer) 32 L, Glucose 164 H, Calcium 8.7, Magnesium 1.9, Total Bilirubin 0.5, AST 29, ALT 37, Alkaline Phosphatase 137 H, Total Protein 7.0 D, Albumin 3.4 L D, Globulin 3.6 H, Albumin/Globulin Ratio 0.9 L I & O for Labs for Last 24 Hours: Intake & Output 07/27/22 07/28/22 07/29/22 07/30/22 23:59 23:59 23:59 23:59 Intake Total 2972 / 3212 820 / 820 1816.34 / 1816.34 470 / 470 Output Total 2350 / 2350 500 / 500 200 / 300 100 / 100 Balance 622 / 862 320 / 320 1616.34 / 1516.34 370 / 370 Weight 208 lb 8.917 oz 207 lb 10.807 oz 207 lb 4.8 oz 210 lb 14.4 oz Microbiology Reports for the Last 24 Hours: Microbiology 07/29/22 13:05 Foot,Right - Abscess Gram Stain - Final 07/28/22 Unknown Foot,Right - Wound Gram Stain - Final 07/28/22 Unknown Foot,Right - Wound Wound Culture - Preliminary NO GROWTH AFTER 24 HOURS 07/26/22 02:44 Throat Group A Streptococcus Screen (CARMEN) - Final Negative for Group A Streptococcus. Constitutional: Present no acute distress Head: Present normocephalic Neck: Present normal inspection Respiratory: Present normal respiratory effort and able to speak in complete sentences Cardiac: Present Regular Rate and pedal pulses present (weakly palpable) Comment:: No distal leg or pedal hair growth bilaterally GI: Present soft and other Rectal (female): Present deferred (female): Present deferred Extremities: Present tenderness (right heel), normal capillary refill (decreased) and edema (right foot) Skin: Present erythema, warm and wounds Comment:: S/P Right foot I&D abscess. Right foot I&D bone cortex, Right foot wound, Achilles debridement, Manual prep/insertion of drug delivery device intramedullary, Partial excision calcaneal bone for osteomyelitis. Incision with sutures/suture guard (ellyn-gaurd) x 2 intact. Neuro: Present Motor Function Intact, Sensory Function Intact, alert, awake, oriented x 3 (disoriented to time and place) and moves all extremities Ankle: right: swelling (right foot/distal ankle) and right: tenderness (posterior heel extending to ankle) and b
--- NOTE | 2022-07-30 08:21 | EXP.PN ---
Subjective *Date: 07/30/22 *Time: 18:18 Interval history: Date of service July 30, 2022 Nursing staff report that she remains afebrile with stable vital signs and saturating appropriately on room air. She is going down for an MRI of her right foot after bearing weight on it this morning and hearing a pop. Podiatry is concerned with a ruptured Achilles tendon. She is postop day 1 from her podiatry procedure which involved wound debridement sent for cultures. Her heel was injected with antibiotic bone graft yesterday. The patient reports adequate pain control through the night. She is tolerating her antibiotic therapy with no adverse events. We have reviewed and discussed her morning labs and have personally interpreted her labs as follows: CBC with a leukocytoses white blood cell count 14.8, hemoglobin that is improved to 10.7, hematocrit 33.5, platelet count 495. Her CBC identifies a left shift. Her electrolytes identify sodium 134, potassium 4.2 chloride 110, carbon dioxide 13, anion gap 15, BUN 39 and creatinine 1.9. Her glucose trend is under 200. Her B12 level identifies deficiency. Exam Data for Last 24 hours Vital signs and Labs for Last 24 Hours: Temp Pulse Resp BP Pulse Ox 97 F L 65 18 135/65 99 07/30/22 07:28 07/30/22 07:28 07/30/22 07:24 07/30/22 07:28 07/30/22 07:24 Laboratory Results - last 24 hr 07/28/22 09:10: Blood Type O Positive, Antibody Screen Negative, Crossmatch (AHG) See Detail 07/29/22 14:40: WBC 10.7, RBC 3.26 L D, Hgb 9.3 L D, Hct 28.0 L, MCV 85.8, MCH 28.5, MCHC 33.3, RDW 14.9, Plt Count 380, MPV 7.8, Neut % (Auto) 77.4, Lymph % (Auto) 11.9, [place] % (Auto) 6.6, Eos % (Auto) 3.4, Baso % (Auto) 0.7, Neut # (Auto) 8.3 H, Lymph # (Auto) 1.3, [place] # (Auto) 0.7, Eos # (Auto) 0.4, Baso # (Auto) 0.1 07/29/22 14:41: POC Glucose 182 H 07/29/22 16:30: POC Glucose 180 H 07/29/22 21:27: POC Glucose 161 H 07/30/22 05:22: POC Glucose 162 H 07/30/22 06:50: POC Glucose 184 H 07/30/22 07:18: WBC 14.8 H D, RBC 3.83 L, Hgb 10.7 L D, Hct 33.5 L, MCV 87.5, MCH 28.0, MCHC 32.0, RDW 14.8, Plt Count 495 H D, MPV 7.9, Neut % (Auto) 84.6 H, Lymph % (Auto) 7.9 L, [place] % (Auto) 4.2, Eos % (Auto) 2.2, Baso % (Auto) 1.2, Neut # (Auto) 12.5 H, Lymph # (Auto) 1.2, [place] # (Auto) 0.6, Eos # (Auto) 0.3, Baso # (Auto) 0.2 07/30/22 07:18: Sodium 134 L, Potassium 4.2, Chloride 110 H, Carbon Dioxide 13 L, Anion Gap 15.2 H, BUN 39 H, Creatinine 1.90 H, Estimated Creat Clear 46, Estimated GFR 27 L, Est GFR ( Amer) 32 L, Glucose 164 H, Calcium 8.7, Magnesium 1.9, Total Bilirubin 0.5, AST 29, ALT 37, Alkaline Phosphatase 137 H, Total Protein 7.0 D, Albumin 3.4 L D, Globulin 3.6 H, Albumin/Globulin Ratio 0.9 L I & O for Last 24 hours: Intake & Output 07/27/22 07/28/22 07/29/22 07/30/22 23:59 23:59 23:59 23:59 Intake Total 2972 / 3212 820 / 820 1816.34 / 1816.34 470 / 470 Output Total 2350 / 2350 500 / 500 200 / 300 100 / 100 Balance 622 / 862 320 / 320 1616.34 / 1516.34 370 / 370 Weight 94.6 kg 94.2 kg 94.03 kg 95.663 kg Microbiology Reports for the Last 24 Hours: Microbiology 07/29/22 13:05 Foot,Right - Abscess Gram Stain - Final 07/28/22 Unknown Foot,Right - Wound Gram Stain - Final 07/28/22 Unknown Foot,Right - Wound Wound Culture - Preliminary NO GROWTH AFTER 24 HOURS 07/26/22 02:44 Throat Group A Streptococcus Screen (CARMEN) - Final Negative for Group A Streptococcus. Constitutional Constitutional: no acute distress, obese and cooperative *Routine HEENT Exam Head: Present normocephalic Eye: Present EOMI and PERRL ENT: Present mucous membranes moist *Routine Neck Exam Neck: Present supple; Absent lymphadenopathy *Routine Respiratory Exam Respiratory: Present CTA bilaterally, normal respiratory effort and symmetric chest movement *Routine Cardiovascular Exam Cardiovascular: Present RRR; Absent murmur *Routine Abdominal Exam Abdomina
--- NOTE | 2022-07-30 08:46 | XR_ITS ---
FINAL REPORT CLINICAL HISTORY: bleeding, crack sounding when transferring COMPARISON: 07/29/2022 FINDINGS: AP, oblique and lateral views of the left foot were obtained. Again seen is high density material in the posterior calcaneus. There is a displaced avulsion fracture of the posterior superior calcaneus along the expected insertion of the Achilles tendon. There is soft tissue edema. There is subcutaneous air posteriorly which is presumably postoperative. IMPRESSION: 1. Avulsion fracture of the posterior calcaneus which has occurred since the prior exam. 2. Otherwise postoperative changes. Reviewed, Interpreted and Dictated by Sarah Moreno MD Transcribed by Shanae Cerna Authenticated and [facility]
--- NOTE | 2022-07-30 08:52 | PC.NURSE ---
Patient was transferring to bedside commode, instructed not to put weight on right foot. Max assists utilized, gait belt utilized, bedside commode in place for pt to pivot with staff help. Patient put right foot down and applied weight despite instruction not too. Crack sounding from foot heard, bleeding on heel noted. Patient assisted back to bed, Lita called and notified of event, instructed by Lita to reinforce bandage and she would come see pt. Lita had called back to order a stat x-ray of foot. Radiology notified of stat order and pt non weight bearing.
--- NOTE | 2022-07-30 09:10 | MR_ITS ---
FINAL REPORT CLINICAL HISTORY: achilles hell rupture COMPARISON: Radiographs from earlier the same day and from 07/29/2022. FINDINGS: Multiplanar and multi sequence imaging of the right leg was obtained before and after administration of intravenous contrast. Please note this exam does not completely image the ankle. There are foci of T2 hyperintensity and T1 hypointensity in the proximal tibial epiphysis and metaphysis, favored to be persistent red marrow. There is degenerative disease of the knee. The remaining bone marrow signal intensity of the tibia and fibula is normal. There is an avulsion fracture of the posterior superior calcaneus at the insertion of the Achilles tendon. There is nonspecific soft tissue edema of the leg involving the muscles and subcutaneous tissues, this could be postoperative or related to cellulitis. Best seen on the sagittal views is a tear of the Achilles tendon with, as previously stated, avulsion of the posterior calcaneus. This is retracted proximally and there is a gap of approximately 1 cm between the calcaneus and the avulsed fragment. No loculated fluid collection is identified. Postcontrast images reveal non specific enhancement of the soft tissues. IMPRESSION: 1. Avulsion fracture of the posterior superior calcaneus with superior displacement of the fragment and Achilles tendon. 2. Nonspecific soft tissue edema. Reviewed, Interpreted and Dictated by Sarah Moreno MD Transcribed by Shanae Cerna Authenticated and . [facility]
[2022-07-30 11:32] LABS: POC Glucose,Bedside 165 (70-110)
--- NOTE | 2022-07-30 14:18 | SW/DCPLANNER ---
Addendum entered by [facility] 08/04/22 10:18: Saima mckeon/ [facility] has been updated that patient does have PICC line placed and will need IV Dapto at discharge. [facility] is agreeable with plan and can accept this patient today. Patient will need a COVID swab prior to returning. Addendum entered by [facility] 08/04/22 07:58: Updated patient information has been faxed to [facility]. Addendum entered by [facility] 07/31/22 13:48: Family stated they are wanting to discharge to [facility] once medically stable for discharge. I have updated other facilities (Admissions is out at [facility]). Addendum entered by [facility] 07/31/22 10:58: [facility] willing to [facility] this patient once medically stable for discharge. I will update patient/patient's sister today once sister arrives. Discharge date is unknown at this time. Original Note: Patient is currently having PICC line placed at this time. I had a discussion with patient's sister (Suzi) regarding plans for patient once medically stable for discharge. 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 Suzi stated that her and patient have discussed this situation and patient verbalized that she understood she would need placement at time of discharge. Suzi stated that patient is still somewhat confused at this time. Patient will require Medicaid placement and I did discuss this with option with Suzi. Patient information will be faxed to the following facilities: [facility], [facility], [facility], [facility] and [facility]. [facility] does not have any female beds at this time. I will continue to follow up with patient/family, facilities and MD. Discharge date is unknown at this time. I also explained to Suzi that there are not currently any home health agencies that are accepting patient's insurance at this time.
[2022-07-30 17:17] LABS: POC Glucose,Bedside 130 (70-110)
[2022-07-30 18:40] LABS: Microscopic, Urine URINE MICROSCOPIC (MICROSCOPIC)
[2022-07-30 19:13] LABS: Appearance,Urine CLEAR (Clear); Bilirubin,Urine Negative (Negative); Blood, Urine 1+ (Negative); Color,Urine YELLOW (Yellow); Glucose,Urine (UA) 1+ (Negative); Ketones,Urine Negative (Negative); Leukocyte Esterase,Urine Negative (Negative); Nitrate,Urine Negative (Negative); Protein,Urine 1+ (Negative); Specific Gravity, Urine 1.015 (1.005-1.030); Urobilinogen,Urine 0.2 EU/dl (0.2)
[2022-07-30 20:19] LABS: Amorphous Sediment,Urine 1+ /lpf; Fine Granular Casts,Urine Occasional #/lpf (0); WBC,Urine Occasional #/hpf (0-3)
[2022-07-31] VITALS (7 sets, daily range): BP systolic 100–142; BP diastolic 54–78; PULSE 62–86; RESP 16–18; TEMP 36.6–37.1; O2SAT 97–100; BMI 31.8
[2022-07-31 01:02] LABS: POC Glucose,Bedside 140 (70-110)
--- NOTE | 2022-07-31 05:43 | PC.NURSE ---
no changes from previous assessment, pt is alert to name only at this time and unable to answer any questions, this has not changed from prior shift report, skin pink/pallor warm and dry, pt has slept majority of shift, picc line intact to john, rle with boot in place, vss, no acute distress.
[2022-07-31 06:15] LABS: POC Glucose,Bedside 124 (70-110)
--- NOTE | 2022-07-31 06:15 | PC.NURSE ---
0615 bety at bedside at this time to assess patient.
--- NOTE | 2022-07-31 06:16 | PC.NURSE ---
Addendum entered by Siobhan Harris RN 07/31/22 06:42: correction [id number] was time bety was called and telephone order to obtain abg and lactate abg stat repeated and verified. Original Note: bety mcbride called regarding change in pt condition this am, pt is alert but not following commands and not answering any questions, it was noted pt moaning out when touching pt or moving pt, also noted twitching in pt arms and face, fsbs was 124
--- NOTE | 2022-07-31 06:21 | PC.NURSE ---
0621 rt at bedside to obtain abg, bety mcbride aprn at bedside, morphine given as prescribed per request from provider for pt moaning out.
[2022-07-31 06:33] LABS: ABG Base Excess -14.9 mmol/L (-2.4-2.3); ABG HCO3 11.9 mmhg (22.0-26.0); ABG Oxygen Saturation 97 % (90-100); ABG PCO2 26.1 mmhg (35.0-45.0); ABG PH 7.28 mmol/L (7.35-7.45); ABG PO2 93.6 mmhg (80-100); ABG TCO2 12.7 mmhg (23-27)
[2022-07-31 06:35] LABS: Lactate Arterial 0.9 mmol/L (0.4-2.0)
[2022-07-31 06:37] LABS: Allen's Test Patient Unable; Oxygen room air %; Source Left Radial
--- NOTE | 2022-07-31 06:56 | CT_ITS ---
FINAL REPORT TECHNIQUE: Thin section axial images were obtained from skull base to vertex without contrast. Coronal reconstruction images were obtained from the axial data. Exam was performed using dose reduction technique. CLINICAL HISTORY: AMS FINDINGS: There are mild periventricular hypodensities favored to be related to chronic small vessel ischemia. There is no mass effect or midline shift. There is no hydrocephalus. There is no intracranial hemorrhage. The posterior fossa is without acute abnormality. The basilar cisterns are preserved. There is a small amount of fluid in the left maxillary sinus. No acute osseous abnormality is identified. IMPRESSION: 1. No acute intracranial abnormality. 2. Changes likely related to chronic small vessel ischemia, consider MRI if clinical concern persists. 3. Left maxillary sinusitis. Reviewed, Interpreted and Dictated by Sarah Moreno MD Transcribed by Shanae Cerna Authenticated and [facility]
[2022-07-31 06:58] LABS: Basophils # 0.1 K/mm3 (0-0.2); Eosinophils # 0.4 K/mm3 (0.0-0.4); Mean Platelet Volume 8.3 fl (7.4-10.4); Monocytes # 0.6 K/mm3 (0.1-1.0)
[2022-07-31 07:07] LABS: Anion Gap 14.1 mEq/L (5-15); Blood Urea Nitrogen 41 mg/dl (7-17); Calcium 8.5 mg/dl (8.4-10.2); Carbon Dioxide 13 mmol/L (22.0-30.0); Chloride 113 mmol/L (98-107); Creatinine Clearance Estimated 42 mL/min (50-200); Estimated Glomerular Filt Rate 24 ml/min (>60); GFR (African American) 29 ML/MIN (>60); Glucose 119 mg/dl (74-100); Potassium 4.1 mmoL/L (3.5-5.1); Sodium 136 mmol/L (136-145)
[2022-07-31 07:11] LABS: Eosinophils % 3.9 % (0.1-12.0); Hematocrit 27.4 % (37.0-47.0); Lymphocytes # 1.3 K/mm3 (0.7-4.5); Lymphocytes % 13.2 % (10-50); Mean Corpuscular HGB Conc 32.4 g/dL (31.8-35.4); Mean Corpuscular Hemoglobin 28.7 pg (27.0-31.2); Mean Corpuscular Volume 88.5 fl (81-99); Monocytes % 5.9 % (1.7-9.3); Neutrophils # 7.8 K/mm3 (1.8-7.8); Platelet Count 427 K/mm3 (142-424); Red Blood Count 3.09 M/mm3 (4.20-5.40); Red Cell Distribution Width 15.1 % (11.5-17.5); White Blood Count 10.2 K/mm3 (4.8-10.8)
[2022-07-31 07:14] LABS: Hemoglobin 8.9 g/dL (12.2-16.2)
[2022-07-31 07:16] LABS: NT Pro Brain Natriuretic Pep. 16000 pg/mL (0-125)
[2022-07-31 07:23] LABS: Procalcitonin 3.25 ng/mL (0.0-2.0)
--- NOTE | 2022-07-31 08:19 | EXP.ORTH.PN ---
Subjective *Date: 08/04/22 *Time: 11:55 Interval history: Patient lying in bed with eyes open. Unable to state her name. Moaning and has tremors noted to upper extremities. Primary nurse reported that Head CT scan was ordered and done this morning. No acute distress noted. Right heel wound dressing removed, incision with suture and suture guard (ellyn-guard)x2 intact. Serosanguineos drainage noted. New betadine soaked dressing re-applied. Nursing to do daily wound dressing change to right heel starting tomorrow. Ortho Exam (Inpt) Vital signs and Labs for Last 24 Hours: Temp Pulse Resp BP Pulse Ox 97.9 F 72 17 137/54 L 100 07/31/22 07:53 07/31/22 07:53 07/31/22 07:53 07/31/22 07:53 07/31/22 07:53 Laboratory Results - last 24 hr 07/30/22 11:21: POC Glucose 165 H 07/30/22 15:13: Urine Color Yellow, Urine Appearance Clear, Urine pH 6.0, Ur Specific [place] 1.015, Urine Protein 1+, Urine Glucose (UA) 1+, Urine Ketones Negative, Urine Blood 1+, Urine Nitrate Negative, Urine Bilirubin Negative, Urine Urobilinogen 0.2, Ur Leukocyte Esterase Negative, Urine RBC None, Urine WBC Occasional, Ur Squamous Epith Cells None, Amorphous Sediment 1+, Fine Granular Casts Occasional 07/30/22 17:09: POC Glucose 130 H 07/30/22 21:57: POC Glucose 140 H 07/31/22 05:56: POC Glucose 124 H 07/31/22 06:00: WBC 10.2 D, RBC 3.09 L, Hgb 8.9 L D, Hct 27.4 L, MCV 88.5, MCH 28.7, MCHC 32.4, RDW 15.1, Plt Count 427 H, MPV 8.3, Neut % (Auto) 76.0, Lymph % (Auto) 13.2, [place] % (Auto) 5.9, Eos % (Auto) 3.9, Baso % (Auto) 1.0, Neut # (Auto) 7.8, Lymph # (Auto) 1.3, [place] # (Auto) 0.6, Eos # (Auto) 0.4, Baso # (Auto) 0.1 07/31/22 06:00: Sodium 136, Potassium 4.1, Chloride 113 H, Carbon Dioxide 13 L, Anion Gap 14.1, BUN 41 H, Creatinine 2.10 H, Estimated Creat Clear 42, Estimated GFR 24 L, Est GFR ( Amer) 29 L, Glucose 119 H D, Calcium 8.5, NT-Pro-B Natriuret Pep 83557 H, Procalcitonin 3.25 H 07/31/22 06:16: Specimen Source Left radial, O2 % room air, ABG pH 7.28 L, ABG pCO2 26.1 L, ABG pO2 93.6, ABG HCO3 11.9 L, ABG Total CO2 12.7 L, ABG O2 Saturation 97, ABG Base Excess -14.9 L, Danis Test Patient unable 07/31/22 06:16: ABG Lactate 0.9 I & O for Labs for Last 24 Hours: Intake & Output 07/28/22 07/29/22 07/30/22 07/31/22 23:59 23:59 23:59 23:59 Intake Total 820 / 820 1816.34 / 1816.34 590 / 590 120 / 120 Output Total 500 / 500 200 / 300 600 / 900 300 / 300 Balance 320 / 320 1616.34 / 1516.34 -10 / -310 -180 / -180 Weight 207 lb 10.807 oz 207 lb 4.8 oz 210 lb 14.4 oz 209 lb 14.081 oz Microbiology Reports for the Last 24 Hours: Microbiology 07/28/22 Unknown Foot,Right - Wound Gram Stain - Final 07/28/22 Unknown Foot,Right - Wound Wound Culture - Preliminary Gram Positive Cocci Gram Positive Cocci#2 07/29/22 13:05 Bone - Right Bone Culture - Preliminary 07/29/22 13:05 Foot,Right - Right Gram Stain - Final 07/29/22 13:05 Foot,Right - Right Surgical Biopsy Culture - Preliminary 07/25/22 22:50 Blood Blood Culture - Final NO GROWTH AFTER 5 DAYS 07/25/22 22:50 Blood Blood Culture - Final NO GROWTH AFTER 5 DAYS 07/29/22 13:05 Foot,Right - Abscess Gram Stain - Final 07/29/22 13:05 Foot,Right - Abscess Abscess Culture - Preliminary NO GROWTH AFTER 24 HOURS 07/29/22 13:05 Bone - Right Bone Culture - Preliminary NO GROWTH AFTER 24 HOURS Constitutional: Present no acute distress Head: Present normocephalic Neck: Present normal inspection Respiratory: Present normal respiratory effort Cardiac: Present Regular Rate and pedal pulses present (weakly palpable) Comment:: No distal leg or pedal hair growth bilaterally GI: Present soft and other Rectal (female): Present deferred (female): Present deferred Extremities: Present tenderness (right heel), no
--- NOTE | 2022-07-31 09:51 | HMH.OTEV ---
OT Inpatient Evaluation Rehab OT IP Evaluation Start: 07/27/22 09:32 Freq: ONCE Status: Active Protocol: Document 07/31/22 09:29 [facility] (Rec: 07/31/22 09:51 [facility] [id number]) Rehab OT IP Assessment Subjective History Pt not oriented to person on arrival. Previous OT evaluation completed on . However, pt's mental state has changed. She is now unable to provide prior level of functioning information or answer simple orientation questions. She did answer one yes/no question appropriately during evaluation. The following information was gathered from the evaluation completed on 07/28/22. Pt was admitted to [facility] on 07/25/22 due to Syncope, Hypoglycemia. Pt reports that she was independent in all ADLs and IADLs. She reports that she completes all cooking and cleaning tasks at home. Pt reports that she lives alone. She reports that there are four steps upon entering in the home from the front door, and three steps from entering in the back door. Pt reports that there are no steps inside the house. She reports that she is still able to drive, and she goes with her brother for grocery shopping. Pt reports that she uses a cane when for outings outside the house, and has access to a rolling walker. Pt reports that her brother is not able to assist her due to his work schedule. Pt had the following operation completed on 07/29/22: Right foot I&D abscess Right foot I&D bone cortex Right foot wound, Achilles debridement Manual prep/insertion of drug
[2022-07-31 09:56] LABS: POC Glucose,Bedside 126 (70-110)
--- NOTE | 2022-07-31 10:06 | HMH.PTEV ---
Physical Therapy Evaluation Rehab PT IP Evaluation Start: 07/27/22 09:32 Freq: ONCE Status: Complete Protocol: Document 07/28/22 09:00 FLEX (Rec: 07/28/22 10:33 [place] [id number]) Subjective/History History History 62 yowf adm to [facility] with TYLOR, anemia, sepsis, CHF exac. T/F from outside hospital. She also has a pre-existing wound on her R foot. She reports she lives alone, 1-2 steps to entert he home and she uses a RW for all ambulation at baseline. Subjective Subjective Pt reports feeling better overall, only c/o is she has difficulty gettign up from the toilet at home at baseline. Rehab PT IP Eval Objective Appearance Patient Behavior Appropriate Patient Orientation Person,Place,Time Difficulty following instructions none Speech Pattern Clear Ambulation Patient Able to Ambulate Yes Ambulation Observation IP General Gait Pattern Observation Shuffling Step Ambulation Distance (feet) 30 Ambulation Assistive Device Rolling Walker Ambulation Ability Supervision/Stand by Balance Ability to Arise Able, uses arms to help Sitting Balance Steady, safe Standing Balance Steady, wide stance Dynamic Sitting Balance Ability Good Dynamic Standing Balance Ability Fair Transfers Bed Transfer Ability Contact Guard/Hand Hold Chair Transfer Ability Contact Guard/Hand Hold Sit to Stand Bed Transfer Ability Contact Guard/Hand Hold Sit to Stand Chair Transfer Ability Contact Guard/Hand Hold Rehab PT IP prob,goals,plan Problems Date of Evaluation: 07/28/22 Discharge Plan PT Discharge Plan Pt currently appears to be at baseline for all mobility and is appropriate to return home once medically stable. This may change overt he cours eof the next day as she is scheduled for a wound debridement procedure in the am. Mobility may be more difficulty depending on the extent of the debridement that is scheduled to be performed. If mobility status changes, therapy will reevaluate her status. G -code Required
--- NOTE | 2022-07-31 10:27 | DIET.NUTRFU ---
Attempted to visit patient today to review poor po intake. She seemed to have increased confusion and was yelling out. Provider and IDT reviewed medications, she has been taking morphine which maybe causing AMS, was discontinued. Will also start glucerna to help meet caloric needs, her protein needs are also high secondary to diabetic ulcer to R heel.
[2022-07-31 16:48] LABS: POC Glucose,Bedside 111 (70-110)
--- NOTE | 2022-07-31 17:52 | EXP.PN ---
Subjective *Date: 07/31/22 *Time: 17:52 Interval history: Date of service July 31, 2022 Nursing staff report that the patient remains afebrile with stable heart rates and blood pressures and saturating appropriately on room air. They are concerned with her waxing and waning level of her alertness. She is tolerating her IV antibiotic therapy with no adverse events. We have reviewed and discussed her morning labs with an improved leukocytoses white blood cell count 10.2, stable hemoglobin 8.9, both normal platelet count. Her electrolytes are normal and her BUN is 41 with creatinine 2.1. Exam Data for Last 24 hours Vital signs and Labs for Last 24 Hours: Temp Pulse Resp BP Pulse Ox 98.3 F 70 17 142/71 H 98 07/31/22 15:10 07/31/22 15:10 07/31/22 15:10 07/31/22 15:10 07/31/22 15:10 Laboratory Results - last 24 hr 07/30/22 15:13: Urine Color Yellow, Urine Appearance Clear, Urine pH 6.0, Ur Specific [place] 1.015, Urine Protein 1+, Urine Glucose (UA) 1+, Urine Ketones Negative, Urine Blood 1+, Urine Nitrate Negative, Urine Bilirubin Negative, Urine Urobilinogen 0.2, Ur Leukocyte Esterase Negative, Urine RBC None, Urine WBC Occasional, Ur Squamous Epith Cells None, Amorphous Sediment 1+, Fine Granular Casts Occasional 07/30/22 21:57: POC Glucose 140 H 07/31/22 05:56: POC Glucose 124 H 07/31/22 06:00: WBC 10.2 D, RBC 3.09 L, Hgb 8.9 L D, Hct 27.4 L, MCV 88.5, MCH 28.7, MCHC 32.4, RDW 15.1, Plt Count 427 H, MPV 8.3, Neut % (Auto) 76.0, Lymph % (Auto) 13.2, [place] % (Auto) 5.9, Eos % (Auto) 3.9, Baso % (Auto) 1.0, Neut # (Auto) 7.8, Lymph # (Auto) 1.3, [place] # (Auto) 0.6, Eos # (Auto) 0.4, Baso # (Auto) 0.1 07/31/22 06:00: Sodium 136, Potassium 4.1, Chloride 113 H, Carbon Dioxide 13 L, Anion Gap 14.1, BUN 41 H, Creatinine 2.10 H, Estimated Creat Clear 42, Estimated GFR 24 L, Est GFR ( Amer) 29 L, Glucose 119 H D, Calcium 8.5, NT-Pro-B Natriuret Pep 10512 H, Procalcitonin 3.25 H 07/31/22 06:16: Specimen Source Left radial, O2 % room air, ABG pH 7.28 L, ABG pCO2 26.1 L, ABG pO2 93.6, ABG HCO3 11.9 L, ABG Total CO2 12.7 L, ABG O2 Saturation 97, ABG Base Excess -14.9 L, Danis Test Patient unable 07/31/22 06:16: ABG Lactate 0.9 07/31/22 09:44: POC Glucose 126 H 07/31/22 16:23: POC Glucose 111 H I & O for Last 24 hours: Intake & Output 07/28/22 07/29/22 07/30/22 07/31/22 23:59 23:59 23:59 23:59 Intake Total 820 / 820 1816.34 / 1816.34 590 / 590 120 / 120 Output Total 500 / 500 200 / 300 600 / 900 1550 / 1550 Balance 320 / 320 1616.34 / 1516.34 -10 / -310 -1430 / -1430 Weight 94.2 kg 94.03 kg 95.663 kg 95.2 kg Microbiology Reports for the Last 24 Hours: Microbiology 07/29/22 13:05 Bone - Right Bone Culture - Preliminary NO GROWTH AFTER 48 HOURS 07/29/22 13:05 Foot,Right - Abscess Gram Stain - Final 07/29/22 13:05 Foot,Right - Abscess Abscess Culture - Preliminary NO GROWTH AFTER 48 HOURS 07/28/22 Unknown Foot,Right - Wound Gram Stain - Final 07/28/22 Unknown Foot,Right - Wound Wound Culture - Preliminary Gram Positive Cocci Gram Positive Cocci#2 07/29/22 13:05 Bone - Right Bone Culture - Preliminary 07/29/22 13:05 Foot,Right - Right Gram Stain - Final 07/29/22 13:05 Foot,Right - Right Surgical Biopsy Culture - Preliminary 07/25/22 22:50 Blood Blood Culture - Final NO GROWTH AFTER 5 DAYS 07/25/22 22:50 Blood Blood Culture - Final NO GROWTH AFTER 5 DAYS Constitutional Constitutional: no acute distress, obese and cooperative *Routine HEENT Exam Head: Present normocephalic Eye: Present EOMI and PERRL ENT: Present mucous membranes moist *Routine Neck Exam Neck: Present supple; Absent lymphadenopathy *Routine Respiratory Exam Respiratory: Present CTA bilaterally, normal respiratory effort and symmetric chest m
--- NOTE | 2022-07-31 18:39 | PC.NURSE ---
Pt mentation remains altered. She opens eyes when spoken too but does not follow commands. Pt screams out at times. Medication administered per jul. VSS at this time. Safety measures in place.
--- NOTE | 2022-07-31 19:34 | EXP.PN ---
Subjective *Date: 07/31/22 *Time: 19:34 Interval history: Patient remains encephalopathic, unable to follow commands. Moves all extremities sponatneously. Discussed case with Attending and concerns for possible Cefepime induced encephalopathy in the elderly. Discussed antibioses options and will transition patient from Cefepime to Ceftriaxone. Possible MRI in am if no improvement in mentation. Continue to re orient PRN and maintain appropriate sleep/wake cylces. Exam Data for Last 24 hours Vital signs and Labs for Last 24 Hours: Temp Pulse Resp BP Pulse Ox 98.3 F 70 17 142/71 H 98 07/31/22 15:10 07/31/22 15:10 07/31/22 15:10 07/31/22 15:10 07/31/22 15:10 Laboratory Results - last 24 hr 07/30/22 15:13: Urine RBC None, Urine WBC Occasional, Ur Squamous Epith Cells None, Amorphous Sediment 1+, Fine Granular Casts Occasional 07/30/22 21:57: POC Glucose 140 H 07/31/22 05:56: POC Glucose 124 H 07/31/22 06:00: WBC 10.2 D, RBC 3.09 L, Hgb 8.9 L D, Hct 27.4 L, MCV 88.5, MCH 28.7, MCHC 32.4, RDW 15.1, Plt Count 427 H, MPV 8.3, Neut % (Auto) 76.0, Lymph % (Auto) 13.2, [place] % (Auto) 5.9, Eos % (Auto) 3.9, Baso % (Auto) 1.0, Neut # (Auto) 7.8, Lymph # (Auto) 1.3, [place] # (Auto) 0.6, Eos # (Auto) 0.4, Baso # (Auto) 0.1 07/31/22 06:00: Sodium 136, Potassium 4.1, Chloride 113 H, Carbon Dioxide 13 L, Anion Gap 14.1, BUN 41 H, Creatinine 2.10 H, Estimated Creat Clear 42, Estimated GFR 24 L, Est GFR ( Amer) 29 L, Glucose 119 H D, Calcium 8.5, NT-Pro-B Natriuret Pep 88552 H, Procalcitonin 3.25 H 07/31/22 06:16: Specimen Source Left radial, O2 % room air, ABG pH 7.28 L, ABG pCO2 26.1 L, ABG pO2 93.6, ABG HCO3 11.9 L, ABG Total CO2 12.7 L, ABG O2 Saturation 97, ABG Base Excess -14.9 L, Danis Test Patient unable 07/31/22 06:16: ABG Lactate 0.9 07/31/22 09:44: POC Glucose 126 H 07/31/22 16:23: POC Glucose 111 H I & O for Last 24 hours: Intake & Output 07/28/22 07/29/22 07/30/22 07/31/22 23:59 23:59 23:59 23:59 Intake Total 820 / 820 1816.34 / 1816.34 590 / 590 120 / 120 Output Total 500 / 500 200 / 300 600 / 900 1550 / 1550 Balance 320 / 320 1616.34 / 1516.34 -10 / -310 -1430 / -1430 Weight 94.2 kg 94.03 kg 95.663 kg 95.2 kg Microbiology Reports for the Last 24 Hours: Microbiology 07/29/22 13:05 Bone - Right Bone Culture - Preliminary NO GROWTH AFTER 48 HOURS 07/29/22 13:05 Foot,Right - Abscess Gram Stain - Final 07/29/22 13:05 Foot,Right - Abscess Abscess Culture - Preliminary NO GROWTH AFTER 48 HOURS 07/28/22 Unknown Foot,Right - Wound Gram Stain - Final 07/28/22 Unknown Foot,Right - Wound Wound Culture - Preliminary Gram Positive Cocci Gram Positive Cocci#2 07/29/22 13:05 Bone - Right Bone Culture - Preliminary 07/29/22 13:05 Foot,Right - Right Gram Stain - Final 07/29/22 13:05 Foot,Right - Right Surgical Biopsy Culture - Preliminary 07/25/22 22:50 Blood Blood Culture - Final NO GROWTH AFTER 5 DAYS 07/25/22 22:50 Blood Blood Culture - Final NO GROWTH AFTER 5 DAYS Constitutional Constitutional: no acute distress and agitated *Routine HEENT Exam Head: Present normocephalic Eye: Present EOMI and PERRL ENT: Present mucous membranes moist *Routine Neck Exam Neck: Present supple; Absent lymphadenopathy *Routine Respiratory Exam Respiratory: Present CTA bilaterally *Routine Cardiovascular Exam Cardiovascular: Present RRR *Routine Abdominal Exam Abdominal: Present soft and normoactive bowel sounds; Absent tenderness *Routine Extremities Exam Extremities: Present full ROM Comments: RLE in boot, unable to assess wound *Routine Skin Exam Skin: Present warm; Absent rash *Routine Neurological Exam Neurological: Present altered mental status and moving all extremities Assessment and Plan *Assessment and plan (1
[2022-07-31 20:56] LABS: POC Glucose,Bedside 117 (70-110)
--- NOTE | 2022-07-31 21:54 | PC.NURSE ---
PATIENT CONFUSED. UNABLE TO MAKE NEEDS KNOWN. YELLING OUT CONTINUOUSLY. GREAT DIFFICULTY GETTING HER TO TAKE HER ORAL MEDS (CRUSHED AND IN PUDDING). MOST LIKELY HAVING PAIN. HOSPITALIST NOTIFIED.
--- NOTE | 2022-08-01 03:06 | PC.NURSE ---
PATIENT RESTING QUIETLY AT THIS TIME. AT 2200 PATIENT RECEIVED MORPHINE 2 MG IVP PATIENT APPEARED TO HAVE PAIN. WAS DIGGING AT SCAL[place], PULLING HER HAIR, AND CONSTANTLY PULLING HERSELF INTO THE SIDE RAILS WHILE YELLING OUT NONSTOP. WAS UNABLE TO MAKE NEEDS KNOWN BY VERBAL COMMUNICATION. PATIENT THEN SLEPT FOR 90 MINS AND THEN BEGAN TO YELL OUT AGAIN. AT 2340 WAS ABLE TO GET NORCO 7.5/325MG CRUSHED AND IN PUDDING WHICH PATIENT DID NOT WANT TO SWALLOW BUT FINALLY SWALLOWED WITH STAFF PERSISTANCE. PATIENT WAS ABLE TO GO TO SLEEP AND REST. F/C PATENT AND INTACT TO BSD, URINE CLEAR LIGHT YELLOW. VITAL SIGNS STABLE/AFEBRILE. 02 SAT 98% ON ROOM AIR. ORTHO BOOT IN USE. DRSG IN PLACE. FOOT ELEVATED ON PILLOWS X 2.
[2022-08-01 04:00] VITALS: BP 135/99; PULSE 81; RESP 18; TEMP 36.8; O2SAT 97; BMI 31.0
[2022-08-01 05:15] LABS: POC Glucose,Bedside 125 (70-110)
[2022-08-01 06:28] LABS: Blood Urea Nitrogen 39 mg/dl (7-17); Calcium 8.7 mg/dl (8.4-10.2); Chloride 117 mmol/L (98-107); Creatinine Clearance Estimated 37 mL/min (50-200); Estimated Glomerular Filt Rate 21 ml/min (>60); GFR (African American) 26 ML/MIN (>60); Glucose 120 mg/dl (74-100); Sodium 139 mmol/L (136-145)
[2022-08-01 06:34] LABS: Carbon Dioxide 10 mmol/L (22.0-30.0)
--- NOTE | 2022-08-01 06:35 | PC.NURSE ---
CRITICAL LAB VALUE C02 10 CALLED TO [facility]. NO NEW ORDERS.
[2022-08-01 06:45] LABS: Procalcitonin 1.94 ng/mL (0.0-2.0)
[2022-08-01 08:00] VITALS: BP 156/70; PULSE 80; RESP 18; TEMP 36.3
--- NOTE | 2022-08-01 08:26 | DIET.NUTRFU ---
Reviewed meal intake yesterday, refused all meals. Will review with provider. She was also giving the nursing staff a hard time [facility]. Supplements were ordered. No noted intake on 07/31 only 120ml. LBM was noted on 07/28, no BM Mgt in place at this time-will report to provider. Zofran ordered but not given since 07/27. Labs reviewed Cr worse at 2.3, was 2.1. BS have been fairly controlled 111-126, insulin in place.
--- NOTE | 2022-08-01 08:42 | EXP.PN ---
Subjective *Date: 08/01/22 *Time: 09:02 Interval history: Date of service August 01, 2022 The patient continues with encephalopathy. Nursing staff report levels of somnolence and alertness with moaning and crying out with no identified neurological focal deficits. They report that she remains afebrile with stable vital signs and saturating appropriately on room air. Her morning labs have been reviewed and discussed and personally interpreted as follows: Her CBC identifies an improved leukocytoses with stable hemoglobin. Her electrolytes identify normal sodium and potassium with a chloride 117 and a CO2 of 10 with an anion gap of 16 BUN of 39 and creatinine 2.3. She has been started on a bicarb drip. Exam Data for Last 24 hours Vital signs and Labs for Last 24 Hours: Temp Pulse Resp BP Pulse Ox 98.2 F 81 18 135/99 H 97 08/01/22 04:00 08/01/22 04:00 08/01/22 04:00 08/01/22 04:00 08/01/22 04:00 Laboratory Results - last 24 hr 07/31/22 09:44: POC Glucose 126 H 07/31/22 16:23: POC Glucose 111 H 07/31/22 20:46: POC Glucose 117 H 08/01/22 05:08: POC Glucose 125 H 08/01/22 05:55: Sodium 139, Potassium 4.0, Chloride 117 H, Carbon Dioxide 10 L D, Anion Gap 16.0 H, BUN 39 H, Creatinine 2.30 H, Estimated Creat Clear 37, Estimated GFR 21 L, Est GFR ( Amer) 26 L, Glucose 120 H, Calcium 8.7, Procalcitonin 1.94 I & O for Last 24 hours: Intake & Output 07/29/22 07/30/22 07/31/22 08/01/22 23:59 23:59 23:59 23:59 Intake Total 1816.34 / 1816.34 590 / 590 120 / 120 1800 / 1800 Output Total 200 / 300 600 / 900 2750 / 2750 300 / 300 Balance 1616.34 / 1516.34 -10 / -310 -2630 / -2630 1500 / 1500 Weight 94.03 kg 95.663 kg 95.2 kg 92.9 kg Microbiology Reports for the Last 24 Hours: Microbiology 07/29/22 13:05 Bone - Right Bone Culture - Preliminary 07/29/22 13:05 Foot,Right - Right Gram Stain - Final 07/29/22 13:05 Foot,Right - Right Surgical Biopsy Culture - Preliminary 07/28/22 Unknown Foot,Right - Wound Gram Stain - Final 07/28/22 Unknown Foot,Right - Wound Wound Culture - Preliminary Staphylococcus schleiferi Gram Positive Cocci 07/29/22 13:05 Bone - Right Bone Culture - Preliminary NO GROWTH AFTER 48 HOURS 07/29/22 13:05 Foot,Right - Abscess Gram Stain - Final 07/29/22 13:05 Foot,Right - Abscess Abscess Culture - Preliminary NO GROWTH AFTER 48 HOURS Constitutional Constitutional: no acute distress, obese, cooperative, agitated and somnolent Comments: Becomes agitated with stimulation *Routine HEENT Exam Head: Present normocephalic Eye: Present EOMI and PERRL ENT: Present mucous membranes moist *Routine Neck Exam Neck: Present supple; Absent lymphadenopathy *Routine Respiratory Exam Respiratory: Present rhonchi, normal respiratory effort and symmetric chest movement *Routine Cardiovascular Exam Cardiovascular: Present RRR; Absent murmur *Routine Abdominal Exam Abdominal: Present soft and normoactive bowel sounds; Absent tenderness *Routine Extremities Exam Extremities: Absent cyanosis, clubbing or edema Comments: Right lower extremity in orthopedic appliance *Routine Skin Exam Skin: Present warm; Absent rash *Routine Neurological Exam Neurological: Present alert, altered mental status, moving all extremities and hearing grossly intact; Absent oriented X3 Comments: Does not follow commands Routine Psychiatric Exam Psychiatric: Present cooperative Assessment and Plan *Assessment and plan (1) Sepsis: Status: Acute Category: Medical Code(s): A41.9 - Sepsis, unspecified organism (2) Acute osteomyelitis of right calcaneus: Status: Acute Category: Medical Code(s): M86.171 - Other acute osteomyelitis, right ankle and foot (3) Partial tear of right Achilles tendon: Status: Acute Qualifiers: Enc
[2022-08-01 09:14] LABS: Creatine Kinase 84 U/L (30-135)
--- NOTE | 2022-08-01 09:18 | MR_ITS ---
FINAL REPORT TECHNIQUE: Multiplanar and multisequence imaging of the brain was obtained without contrast. CLINICAL HISTORY: ENCEPHALOPATHY. COMPARISON: CT head dated 07/31/2022 FINDINGS: Exam is limited by motion. There is no mass effect or midline shift. There is no hydrocephalus. There are periventricular and subcortical white matter changes. There is subtle T2 abnormality in the seng. Signal intensity within the cerebellum is normal.. There are no areas of restricted diffusion on diffusion weighted images to suggest acute infarct. No acute soft tissue abnormality is identified. A mucous retention cyst or polyp is present in the left maxillary sinus. IMPRESSION: No acute intracranial abnormality. Periventricular and subcortical white matter changes with T2 abnormality in the seng, likely related to chronic small vessel ischemia. Authenticated and ERN
[2022-08-01 09:29] LABS: Lactic Acid < 0.5 mmol/L (0.7-2.1)
[2022-08-01 09:36] LABS: Ammonia < 9 umol/L (9-30)
[2022-08-01 09:55] LABS: ABG Base Excess -15.4 mmol/L (-2.4-2.3); ABG HCO3 11.3 mmhg (22.0-26.0); ABG Oxygen Saturation 99 % (90-100); ABG PCO2 24.4 mmhg (35.0-45.0); ABG PH 7.28 mmol/L (7.35-7.45); ABG PO2 169.9 mmhg (80-100)
[2022-08-01 11:18] LABS: POC Glucose,Bedside 149 (70-110)
[2022-08-01 11:38] VITALS: BP 155/63; PULSE 76; RESP 19; TEMP 36.4; O2SAT 99
[2022-08-01 15:52] LABS: POC Glucose,Bedside 199 (70-110)
[2022-08-01 16:00] VITALS: BP 176/60; PULSE 85; RESP 18; TEMP 36.8; O2SAT 94
--- NOTE | 2022-08-01 17:17 | XR_ITS ---
PROCEDURE INFORMATION: Exam: XR Abdomen Exam date and time: 08/01/2022 5:26 PM Age: 62 years old Clinical indication: Device placement; Gi device; Nasogastric tube; Additional info: Ng placement TECHNIQUE: Imaging protocol: Radiologic exam of the abdomen. Views: Frontal supine view of the abdomen. 1 View. COMPARISON: CR XR CHEST PORTABLE PICC PLAC 07/30/2022 2:03 PM FINDINGS: Tubes, catheters and devices: Esophagogastric tube is in place with the tip and side port in the stomach. Gastrointestinal tract: Normal. No bowel dilation. Bones/joints: Unremarkable. IMPRESSION: Appropriate position of esophagogastric tube
--- NOTE | 2022-08-01 17:58 | PC.NURSE ---
PT IS RESTING IN BED. WILL OPEN EYES TO NAME HOWEVER PT IS UNABLE TO FOLLOW COMMANDS. TURNED AND REPOSITIONED IN BED. UNABLE TO TAKE PO MEDS THIS MORNING. ORAL CARE PROVIDED. NG TUBE PLACEMENT NOTED TO THE LEFT NARE (57 CM) FOR MEDICATION ADMINISTRATION AND FEEDINGS. CATHETER DRAINING AT BEDSIDE. DRESSING TO THE RLE CHANGED THIS SHIFT. PALPABLE PEDAL PULSES. LUNG SOUNDS CLEAR. ABDOMEN SOFT WITH ACTIVE BOWEL SOUNDS.WILL CONTINUE TO MONITOR.
[2022-08-01 18:03] LABS: Chloride 111 mmol/L (98-107); Potassium 3.4 mmoL/L (3.5-5.1); Sodium 138 mmol/L (136-145)
[2022-08-01 18:06] LABS: Anion Gap 15.4 mEq/L (5-15); Blood Urea Nitrogen 38 mg/dl (7-17); Calcium 8.3 mg/dl (8.4-10.2); Carbon Dioxide 15 mmol/L (22.0-30.0); Creatinine Clearance Estimated 41 mL/min (50-200); Estimated Glomerular Filt Rate 24 ml/min (>60); GFR (African American) 29 ML/MIN (>60); Glucose 193 mg/dl (74-100)
[2022-08-01 20:00] VITALS: BP 170/59; PULSE 84; RESP 18; TEMP 37; O2SAT 94
[2022-08-01 21:09] LABS: POC Glucose,Bedside 164 (70-110)
[2022-08-02] VITALS: BP 144/63; PULSE 77; RESP 16; TEMP 37.1; O2SAT 98
[2022-08-02 04:00] VITALS: BP 156/70; PULSE 80; RESP 18; TEMP 36.9; O2SAT 98; BMI 30.4
--- NOTE | 2022-08-02 04:51 | PC.NURSE ---
No improvements in neuro status t/o the night. Pt thrashes head and arms at times while yelling. Pt opens eyes spontaneously, but does not follow any verbal commands. Pt will not speak. Withdraws to pain. Pt has been turned in bed [id number]. Remains on RA. Gomez catheter in place draining clear/yellow urine. PO meds admin per NG tube.
[2022-08-02 05:52] LABS: Basophils # 0.1 K/mm3 (0-0.2); Basophils % 0.9 % (0.1-2.0); Eosinophils # 0.6 K/mm3 (0.0-0.4); Hematocrit 27.5 % (37.0-47.0); Hemoglobin 9.1 g/dL (12.2-16.2); Lymphocytes # 1.7 K/mm3 (0.7-4.5); Lymphocytes % 12.6 % (10-50); Mean Corpuscular HGB Conc 33.1 g/dL (31.8-35.4); Mean Corpuscular Hemoglobin 28.6 pg (27.0-31.2); Mean Corpuscular Volume 86.4 fl (81-99); Mean Platelet Volume 7.9 fl (7.4-10.4); Monocytes # 0.6 K/mm3 (0.1-1.0); Monocytes % 4.3 % (1.7-9.3); Neutrophils # 10.7 K/mm3 (1.8-7.8); Neutrophils % 78.2 % (37.0-80.0); Platelet Count 459 K/mm3 (142-424); Red Blood Count 3.19 M/mm3 (4.20-5.40); Red Cell Distribution Width 15.2 % (11.5-17.5); White Blood Count 13.7 K/mm3 (4.8-10.8)
[2022-08-02 06:04] LABS: Alanine Aminotransferase 25 U/L (12-78); Albumin/Globulin Ratio 0.9 (1.1-1.8); Alkaline Phosphatase 115 U/L (38-126); Anion Gap 13.6 mEq/L (5-15); Aspartate Amino Transferase 27 U/L (14-36); Bilirubin,Total 0.5 mg/dl (0.2-1.3); Blood Urea Nitrogen 35 mg/dl (7-17); Calcium 8.4 mg/dl (8.4-10.2); Carbon Dioxide 15 mmol/L (22.0-30.0); Chloride 114 mmol/L (98-107); Creatine Kinase 84 U/L (30-135); Creatinine Clearance Estimated 42 mL/min (50-200); Estimated Glomerular Filt Rate 25 ml/min (>60); GFR (African American) 31 ML/MIN (>60); Globulin 3.2 g/dL (1.3-3.2); Glucose 151 mg/dl (74-100); Potassium 3.6 mmoL/L (3.5-5.1); Sodium 139 mmol/L (136-145); Total Protein,Serum 6.2 g/dl (6.3-8.2)
[2022-08-02 06:08] LABS: C-Reactive Protein 63.4 mg/L (0-4)
[2022-08-02 06:11] LABS: NT Pro Brain Natriuretic Pep. 20300 pg/mL (0-125)
[2022-08-02 06:26] LABS: POC Glucose,Bedside 155 (70-110)
[2022-08-02 07:00] LABS: Erythrocyte Sedimentation Rate > 140 mm/hr (0-30)
--- NOTE | 2022-08-02 07:59 | PC.NURSE ---
pt assessment complete this am. She is completely disoriented, unable to follow commands, can not squeeze my hands. Moans or cries out when attempting to communicate at all. turning pt at least q2. hernandez intact and draining @ bedside.
[2022-08-02 08:00] VITALS: BP 181/78; PULSE 79; RESP 18; TEMP 36.9; O2SAT 98
[2022-08-02 11:35] LABS: POC Glucose,Bedside 135 (70-110)
[2022-08-02 11:57] VITALS: BP 158/70; PULSE 75; RESP 20; TEMP 37.5; O2SAT 99
--- NOTE | 2022-08-02 13:46 | PC.NURSE ---
pts sister is @ bedside.
--- NOTE | 2022-08-02 14:26 | EXP.PN ---
Subjective *Date: 08/02/22 *Time: 14:26 Interval history: Date of service August 02, 2022 The patient continues to be encephalopathic. Nursing staff report that she remains afebrile with stable vital signs and saturating appropriately on room air. She is accompanied by her sister and male relative. They describe a chronic history of depression and mood disorder prior to her hospitalization. They report that she had almost given up. We have discussed her postoperative encephalopathic state and reviewed her neuroimaging including CT of the head and MRI of the brain. We discussed her previous IV antibiotic therapy cefepime and association with neurological changes. Her antibiotic therapy has been transitioned to Dapto. Her intraoperative bone culture is growing gram-positive cocci in her right foot abscess is growing staph as well. Her blood culture continues to be negative at 5 days. Her inflammatory markers continue to be elevated including ESR and CRP. We have reviewed and discussed her morning labs and I have personally interpreted her labs as follows: Elevated BNP, stable leukocytoses white blood cell count 13.7, stable hemoglobin 9.1, platelets 459. Electrolytes are normal and her creatinine is improving to 2.0. Her glucose trend is under 180. An NG tube was placed 3/3 for nutrition with her encephalopathic state. Exam Data for Last 24 hours Vital signs and Labs for Last 24 Hours: Temp Pulse Resp BP Pulse Ox 99.5 F 75 20 158/70 H 99 08/02/22 11:57 08/02/22 11:57 08/02/22 11:57 08/02/22 11:57 08/02/22 11:57 Laboratory Results - last 24 hr 08/01/22 15:27: POC Glucose 199 H 08/01/22 17:50: Sodium 138, Potassium 3.4 L, Chloride 111 H, Carbon Dioxide 15 L, Anion Gap 15.4 H, BUN 38 H, Creatinine 2.10 H, Estimated Creat Clear 41, Estimated GFR 24 L, Est GFR ( Amer) 29 L, Glucose 193 H D, Calcium 8.3 L 08/01/22 20:10: POC Glucose 164 H 08/02/22 05:28: WBC 13.7 H D, RBC 3.19 L, Hgb 9.1 L, Hct 27.5 L, MCV 86.4, MCH 28.6, MCHC 33.1, RDW 15.2, Plt Count 459 H, MPV 7.9, Neut % (Auto) 78.2, Lymph % (Auto) 12.6, [place] % (Auto) 4.3, Eos % (Auto) 4.0, Baso % (Auto) 0.9, Neut # (Auto) 10.7 H, Lymph # (Auto) 1.7, [place] # (Auto) 0.6, Eos # (Auto) 0.6 H, Baso # (Auto) 0.1, ESR > 140 H 08/02/22 05:28: Sodium 139, Potassium 3.6, Chloride 114 H, Carbon Dioxide 15 L, Anion Gap 13.6, BUN 35 H, Creatinine 2.00 H, Estimated Creat Clear 42, Estimated GFR 25 L, Est GFR ( Amer) 31 L, Glucose 151 H D, Calcium 8.4, Total Bilirubin 0.5, AST 27, ALT 25 D, Alkaline Phosphatase 115, Total Creatine Kinase 84, C-Reactive Protein 63.4 H, NT-Pro-B Natriuret Pep 25549 H, Total Protein 6.2 L, Albumin 3.0 L, Globulin 3.2, Albumin/Globulin Ratio 0.9 L 08/02/22 05:31: POC Glucose 155 H 08/02/22 11:28: POC Glucose 135 H I & O for Last 24 hours: Intake & Output 07/30/22 07/31/22 08/01/22 08/02/22 23:59 23:59 23:59 23:59 Intake Total 590 / 590 120 / 120 3186 / 3186 1042 / 1042 Output Total 600 / 900 2750 / 2750 1300 / 2000 2250 / 2250 Balance -10 / -310 -2630 / -2630 1886 / 1186 -1208 / -1208 Weight 95.663 kg 95.2 kg 92.9 kg 90.945 kg Microbiology Reports for the Last 24 Hours: Microbiology 07/29/22 13:05 Bone - Right Bone Culture - Preliminary Gram Positive Cocci Gram Positive Cocci#2 07/29/22 13:05 Foot,Right - Right Gram Stain - Final 07/29/22 13:05 Foot,Right - Right Surgical Biopsy Culture - Preliminary Gram Positive Cocci Gram Positive Cocci#2 07/28/22 Unknown Foot,Right - Wound Gram Stain - Final 07/28/22 Unknown Foot,Right - Wound Wound Culture - Final Staphylococcus schleiferi 07/29/22 13:05 Bone - Right Bone Culture - Preliminary NO GROWTH AFTER 72 HOURS 07/29/22 13:05 Foot,Right - Abscess Gram Stain - Final 07/29/22 13:05 Foot,Right
--- NOTE | 2022-08-02 14:37 | PC.NURSE ---
D5 with Sodium Bicarb @ 100 ml per hour initiated per MD order. @ 100 ml
[2022-08-02 15:33] VITALS: BP 165/74; PULSE 71; RESP 18; TEMP 37; O2SAT 95
[2022-08-02 16:41] LABS: POC Glucose,Bedside 182 (70-110)
--- NOTE | 2022-08-02 17:59 | PC.NURSE ---
patient's family refused using a wedge to turn patient off of their bottom.
[2022-08-02 20:00] VITALS: BP 183/81; PULSE 79; RESP 16; TEMP 36.8; O2SAT 97
[2022-08-02 20:08] LABS: POC Glucose,Bedside 187 (70-110)
[2022-08-02 21:28] LABS: MRSA DNA PCR NEGATIVE
[2022-08-03] VITALS: BP 163/74; PULSE 73; TEMP 37; O2SAT 98
--- NOTE | 2022-08-03 00:24 | PC.NURSE ---
Pt able to follow verbal commands at this time. Pt responds verbally to some yes or no questions.
[2022-08-03 04:00] VITALS: BP 178/79; PULSE 75; RESP 18; TEMP 36.5; O2SAT 97; BMI 29.5
--- NOTE | 2022-08-03 04:32 | PC.NURSE ---
Pt is now alert to person, able to tell me name and birthday. follows verbal commands.
[2022-08-03 06:03] LABS: Chloride 105 mmol/L (98-107)
[2022-08-03 06:04] LABS: Sodium 141 mmol/L (136-145)
[2022-08-03 06:06] LABS: Blood Urea Nitrogen 30 mg/dl (7-17); Creatinine Clearance Estimated 45 mL/min (50-200); Estimated Glomerular Filt Rate 29 ml/min (>60); GFR (African American) 34 ML/MIN (>60)
[2022-08-03 06:07] LABS: Anion Gap 10.7 mEq/L (5-15); Carbon Dioxide 28 mmol/L (22.0-30.0); Glucose 194 mg/dl (74-100)
[2022-08-03 06:09] LABS: Potassium 2.7 mmoL/L (3.5-5.1)
--- NOTE | 2022-08-03 06:15 | PC.NURSE ---
reported critical K+ 2.7 to cinthia mcbride aprn
[2022-08-03 06:27] LABS: Basophils # 0.1 K/mm3 (0-0.2); Basophils % 0.8 % (0.1-2.0); Eosinophils # 0.6 K/mm3 (0.0-0.4); Eosinophils % 4.6 % (0.1-12.0); Hematocrit 27.2 % (37.0-47.0); Hemoglobin 9.3 g/dL (12.2-16.2); Lymphocytes # 1.7 K/mm3 (0.7-4.5); Lymphocytes % 14.1 % (10-50); Mean Corpuscular HGB Conc 34.4 g/dL (31.8-35.4); Mean Corpuscular Hemoglobin 28.9 pg (27.0-31.2); Mean Corpuscular Volume 84.2 fl (81-99); Mean Platelet Volume 7.8 fl (7.4-10.4); Monocytes # 0.5 K/mm3 (0.1-1.0); Monocytes % 3.7 % (1.7-9.3); Neutrophils # 9.4 K/mm3 (1.8-7.8); Neutrophils % 76.8 % (37.0-80.0); Platelet Count 448 K/mm3 (142-424); Red Blood Count 3.23 M/mm3 (4.20-5.40); Red Cell Distribution Width 15.2 % (11.5-17.5); White Blood Count 12.3 K/mm3 (4.8-10.8)
[2022-08-03 06:44] LABS: POC Glucose,Bedside 203 (70-110)
--- NOTE | 2022-08-03 07:31 | PC.NURSE ---
pt is more alert this am. Was able to communicate with nursing and answer some yes/no questions. Will continue to monitor pt status and update family
[2022-08-03 08:00] VITALS: BP 168/83; PULSE 71; RESP 18; TEMP 37.1; O2SAT 98
--- NOTE | 2022-08-03 08:00 | XR_ITS ---
PROCEDURE INFORMATION: Exam: XR Chest Exam date and time: 08/03/2022 8:39 AM Age: 62 years old Clinical indication: Shortness of breath; Additional info: Chf TECHNIQUE: Imaging protocol: Radiologic exam of the chest. Views: 1 view. COMPARISON: CR XR CHEST PORTABLE PICC PLAC 07/30/2022 2:03 PM FINDINGS: Tubes, catheters and devices: A right peripherally inserted central venous catheter lies with its tip in the superior vena cava. Lungs: Unremarkable. No consolidation. Pleural spaces: Unremarkable. No pleural effusion. No pneumothorax. Heart/Mediastinum: Stable cardiac silhouette Bones/joints: Median sternotomy IMPRESSION: No acute process
[2022-08-03 11:12] VITALS: BP 160/73; PULSE 67; RESP 18; TEMP 37.1; O2SAT 97
[2022-08-03 11:34] LABS: POC Glucose,Bedside 192 (70-110)
--- NOTE | 2022-08-03 12:39 | EXP.PN ---
Subjective *Date: 08/03/22 *Time: 12:39 Interval history: Date of service August 03, 2022 The patient is alert and interactive this morning. She is speaking in complete sentences. Nursing staff report that her encephalopathy cleared through the morning hours. She remains afebrile with stable vital signs and saturating appropriately on room air. Her NG tube has been removed. We have reviewed and discussed her morning labs and I personally interpreted her labs as follows: A CBC with an improved leukocytosis white blood cell count 12.3, hemoglobin 9.3, hematocrit 27, platelet count 448. Her electrolytes identify sodium 141 and potassium 2.7 which is being replaced. Her chloride is 105 and her bicarb is 28. Her BUN is 30 and her creatinine is 1.8 (baseline 1.7). Exam Data for Last 24 hours Vital signs and Labs for Last 24 Hours: Temp Pulse Resp BP Pulse Ox 98.7 F 67 18 160/73 H 97 08/03/22 11:12 08/03/22 11:12 08/03/22 11:12 08/03/22 11:12 08/03/22 11:12 Laboratory Results - last 24 hr 07/25/22 08:36: MRSA (PCR) Negative 08/02/22 16:16: POC Glucose 182 H 08/02/22 19:58: POC Glucose 187 H 08/03/22 05:47: POC Glucose 203 H 08/03/22 05:52: WBC 12.3 H, RBC 3.23 L, Hgb 9.3 L, Hct 27.2 L, MCV 84.2, MCH 28.9, MCHC 34.4, RDW 15.2, Plt Count 448 H, MPV 7.8, Neut % (Auto) 76.8, Lymph % (Auto) 14.1, [place] % (Auto) 3.7, Eos % (Auto) 4.6, Baso % (Auto) 0.8, Neut # (Auto) 9.4 H, Lymph # (Auto) 1.7, [place] # (Auto) 0.5, Eos # (Auto) 0.6 H, Baso # (Auto) 0.1 08/03/22 05:52: Sodium 141, Potassium 2.7 L* D, Chloride 105, Carbon Dioxide 28, Anion Gap 10.7, BUN 30 H, Creatinine 1.80 H, Estimated Creat Clear 45, Estimated GFR 29 L, Est GFR ( Amer) 34 L, Glucose 194 H, Calcium 8.0 L 08/03/22 11:27: POC Glucose 192 H I & O for Last 24 hours: Intake & Output 07/31/22 08/01/22 08/02/22 08/03/22 23:59 23:59 23:59 23:59 Intake Total 120 / 120 3186 / 3186 1042 / 1042 Output Total 2750 / 2750 1300 / 2000 6050 / 6050 1999 Balance -2630 / -2630 1886 / 1186 -5008 / -5008 -1999 Weight 95.2 kg 92.9 kg 90.945 kg 88.479 kg Microbiology Reports for the Last 24 Hours: Microbiology 07/29/22 13:05 Foot,Right - Abscess Gram Stain - Final 07/29/22 13:05 Foot,Right - Abscess Abscess Culture - Preliminary NO GROWTH AFTER 4 DAYS 07/29/22 13:05 Bone - Right Bone Culture - Preliminary NO GROWTH AFTER 4 DAYS 07/29/22 13:05 Bone - Right Bone Culture - Preliminary Gram Positive Cocci Gram Positive Cocci#2 07/29/22 13:05 Foot,Right - Right Gram Stain - Final 07/29/22 13:05 Foot,Right - Right Surgical Biopsy Culture - Preliminary Gram Positive Cocci Gram Positive Cocci#2 Constitutional Constitutional: no acute distress, obese and cooperative Comments: Communicative and interactive *Routine HEENT Exam Head: Present normocephalic Eye: Present EOMI and PERRL ENT: Present mucous membranes moist *Routine Neck Exam Neck: Present supple; Absent lymphadenopathy *Routine Respiratory Exam Respiratory: Present rhonchi, normal respiratory effort and symmetric chest movement *Routine Cardiovascular Exam Cardiovascular: Present RRR; Absent murmur *Routine Abdominal Exam Abdominal: Present soft and normoactive bowel sounds; Absent tenderness *Routine Extremities Exam Extremities: Present full ROM, pulses intact and normal capillary refill; Absent cyanosis, clubbing or edema Comments: Right lower extremity in orthopedic appliance *Routine Skin Exam Skin: Present warm; Absent rash *Routine Neurological Exam Neurological: Present alert, oriented X3, moving all extremities, vision grossly intact, hearing grossly intact and normal speech; Absent sensory deficit or motor deficit Comments: Does not follow commands Routine Psychiatric Exam Psychiatric: Prese
--- NOTE | 2022-08-03 13:25 | PC.NURSE ---
per MD request. NG will be removed
--- NOTE | 2022-08-03 14:28 | PC.NURSE ---
pt is much more alert this afternoon. NG has been removed. Pt is sitting up in bed. She is mostly appropriate. Noted to have occasional delayed speech. I gave her a cup of applesauce and she tolerated it well. Also tolerating thin liquids without issue. She reports feeling occasional confusion about events that have taken place over the last few days but is able to be easily reoriented. She denies any pain @ this time. MD aware of pt change in mentation
[2022-08-03 15:55] VITALS: BP 156/74; PULSE 67; RESP 18; TEMP 37.1; O2SAT 96
[2022-08-03 17:31] LABS: POC Glucose,Bedside 242 (70-110)
--- NOTE | 2022-08-03 18:42 | PC.NURSE ---
dressing to R Foot changed per MD order. pt tolerated well.
[2022-08-03 20:00] VITALS: BP 153/76; PULSE 66; RESP 17; TEMP 36.7; O2SAT 99
[2022-08-03 20:46] LABS: POC Glucose,Bedside 211 (70-110)
[2022-08-04] VITALS: BP 140/73; PULSE 60; RESP 17; TEMP 36.7; O2SAT 97
[2022-08-04 04:00] VITALS: BP 149/75; PULSE 66; RESP 17; TEMP 36.4; O2SAT 97; BMI 29.7
--- NOTE | 2022-08-04 05:02 | PC.NURSE ---
Pt A&O to person and place this morning, follows verbal commands, and speaks in complete sentences. Pt complained of pain in RLE one time this shift and was medicated PRN per JUL. Discussed Bicarb gtt with Everardo LYLES this morning and states to d/c at this time. Pt tolerating oral intake well and has had multiple cups of water to drink tonight. No other concerns at this time. Call light within reach.
[2022-08-04 06:32] LABS: POC Glucose,Bedside 203 (70-110)
[2022-08-04 07:38] LABS: Basophils # 0.1 K/mm3 (0-0.2); Basophils % 0.8 % (0.1-2.0); Eosinophils # 0.5 K/mm3 (0.0-0.4); Eosinophils % 3.7 % (0.1-12.0); Hematocrit 28.6 % (37.0-47.0); Hemoglobin 9.8 g/dL (12.2-16.2); Lymphocytes # 1.9 K/mm3 (0.7-4.5); Lymphocytes % 15.6 % (10-50); Mean Corpuscular HGB Conc 34.1 g/dL (31.8-35.4); Mean Corpuscular Hemoglobin 28.4 pg (27.0-31.2); Mean Corpuscular Volume 83.3 fl (81-99); Mean Platelet Volume 7.9 fl (7.4-10.4); Monocytes # 0.4 K/mm3 (0.1-1.0); Monocytes % 3.6 % (1.7-9.3); Neutrophils # 9.5 K/mm3 (1.8-7.8); Neutrophils % 76.4 % (37.0-80.0); Platelet Count 424 K/mm3 (142-424); Red Blood Count 3.43 M/mm3 (4.20-5.40); Red Cell Distribution Width 15.2 % (11.5-17.5); White Blood Count 12.5 K/mm3 (4.8-10.8)
[2022-08-04 07:56] LABS: Anion Gap 5.6 mEq/L (5-15); Blood Urea Nitrogen 26 mg/dl (7-17); Calcium 8.2 mg/dl (8.4-10.2); Carbon Dioxide 37 mmol/L (22.0-30.0); Chloride 96 mmol/L (98-107); Creatinine Clearance Estimated 55 mL/min (50-200); Estimated Glomerular Filt Rate 35 ml/min (>60); GFR (African American) 43 ML/MIN (>60); Glucose 159 mg/dl (74-100); Potassium 3.6 mmoL/L (3.5-5.1); Sodium 135 mmol/L (136-145)
[2022-08-04 07:57] LABS: Creatine Kinase 44 U/L (30-135)
[2022-08-04 08:00] VITALS: BP 136/81; PULSE 61; RESP 16; TEMP 36.3; O2SAT 100
[2022-08-04 08:01] LABS: C-Reactive Protein 31.3 mg/L (0-4)
--- NOTE | 2022-08-04 08:16 | EXP.ORTH.PN ---
Subjective *Date: 08/04/22 *Time: 12:02 Interval history: Patient resting in bed, alert and oriented this morning. Speaking in complete sentences. No acute distress noted. Right ankle and foot wound dressing removed, wound assessed. There is new black gangrene noted to lateral and posterior ankle. will order right foot/ankle CTA to check for arterial block. Wound cleanse with betadine, applied betadine soaked gauze to the incision followed by a dry sterile dressing (4x4, kerlix, Walker. Patient made no request. Ortho Exam (Inpt) Vital signs and Labs for Last 24 Hours: Temp Pulse Resp BP Pulse Ox 97.6 F 66 17 149/75 H 97 08/04/22 04:00 08/04/22 04:00 08/04/22 04:00 08/04/22 04:00 08/04/22 04:00 Laboratory Results - last 24 hr 08/03/22 11:27: POC Glucose 192 H 08/03/22 17:10: POC Glucose 242 H 08/03/22 20:31: POC Glucose 211 H 08/04/22 06:22: POC Glucose 203 H 08/04/22 07:27: Total Creatine Kinase 44 08/04/22 07:27: WBC 12.5 H, RBC 3.43 L, Hgb 9.8 L, Hct 28.6 L, MCV 83.3, MCH 28.4, MCHC 34.1, RDW 15.2, Plt Count 424, MPV 7.9, Neut % (Auto) 76.4, Lymph % (Auto) 15.6, [place] % (Auto) 3.6, Eos % (Auto) 3.7, Baso % (Auto) 0.8, Neut # (Auto) 9.5 H, Lymph # (Auto) 1.9, [place] # (Auto) 0.4, Eos # (Auto) 0.5 H, Baso # (Auto) 0.1 08/04/22 07:27: Sodium 135 L, Potassium 3.6 D, Chloride 96 L, Carbon Dioxide 37 H, Anion Gap 5.6, BUN 26 H, Creatinine 1.50 H, Estimated Creat Clear 55, Estimated GFR 35 L, Est GFR ( Amer) 43 L D, Glucose 159 H, Calcium 8.2 L, C-Reactive Protein 31.3 H D I & O for Labs for Last 24 Hours: Intake & Output 08/01/22 08/02/22 08/03/22 08/04/22 23:59 23:59 23:59 23:59 Intake Total 3186 / 3186 1042 / 1042 240 / 240 4405 / 4405 Output Total 1300 / 2000 6050 / 6050 3000 / 3200 800 / 800 Balance 1886 / 1186 -5008 / -5008 -2760 / -2960 3605 / 3605 Weight 204 lb 12.951 oz 200 lb 8 oz 195 lb 1 oz 195 lb 15.855 oz Microbiology Reports for the Last 24 Hours: Microbiology 07/29/22 13:05 Bone - Right Bone Culture - Final NO GROWTH AFTER 5 DAYS 07/29/22 13:05 Foot,Right - Abscess Gram Stain - Final 07/29/22 13:05 Foot,Right - Abscess Abscess Culture - Final NO GROWTH AFTER 5 DAYS Constitutional: Present no acute distress Head: Present normocephalic Neck: Present normal inspection Respiratory: Present normal respiratory effort and able to speak in complete sentences Cardiac: Present Regular Rate and pedal pulses present GI: Present soft Rectal (female): Present deferred (female): Present deferred Extremities: Present tenderness (right foot and ankle), edema (right foot and ankle) and calf tenderness (no calf tenderness) Skin: Present erythema, wounds (right ankle and foot) and gangrene (right ankle) Neuro: Present alert, awake, oriented x 3 and moves all extremities Ankle: right: erythema, right: swelling, right: tenderness, right: wound, right: decreased ROM and right: pain with active ROM Feet Left and Right: 1. S/p right foot/heel wound I & D, achilles debridement. Incision with sutures intact. There is black eschar noted to lateral and posterior ankle. Edema, and erythema noted. Moderate amount of serosanguineous drainage noted. Betadine soaked dressing applied. Feet/Toes: right: decreased ROM and bilateral: nail abnormalities and bilateral: tenderness Assessment and Plan *Assessment and plan (1) Acute osteomyelitis of right calcaneus: Status: Acute Category: Medical Code(s): M86.171 - Other acute osteomyelitis, right ankle and foot (2) Partial tear of right Achilles tendon: Status: Acute Qualifiers: Encounter type: initial encounter Qualified Code(s): S86.011A - Strain of right Achilles tendon, initial encounter Category: Medical Code(s): S86.011A - Strain of right Achilles tendon, initial encounter (3) Avulsion fracture of right calcaneus: Status: Acute
--- NOTE | 2022-08-04 08:20 | CA_ITS ---
FINAL REPORT CLINICAL HISTORY: RLE Osteomyelitis, DM FINDINGS: LOWER EXTREMITY DUPLEX DOPPLER Color Doppler and duplex Doppler of the right lower extremity was performed. Spectral analysis was also performed. Velocities were measured at multiple levels. All velocities are in centimeters per second. RN INTERNSHIP: 122 SFA Prox: 96 SFA Mid: 127 SFA Distal: 91 J2EE ARCHITECT: 57 YVAN: 54 PER: 53 Waveforms are triphasic and biphasic. IMPRESSION: No evidence of significant vascular disease. Reviewed, Interpreted and Dictated by Brendan Viera III, MD Transcribed by Bella Bucio Authenticated and . [facility]
[2022-08-04 08:34] LABS: Erythrocyte Sedimentation Rate 116 mm/hr (0-30)
[2022-08-04 10:49] LABS: Coronavirus 19, PCR Not Detected (NotDetected); Influenza A, PCR Not Detected (NotDetected); Influenza B, PCR Not Detected (NotDetected)
--- NOTE | 2022-08-04 11:11 | EXP.PHA.PN ---
Subjective *Date: 08/04/22 *Time: 11:11 Medical Exam Vital signs and Labs for Last 24 Hours: Vital Signs Temp Pulse Resp BP Pulse Ox 08/04/22 08:00 97.4 F L 61 16 136/81 100 08/04/22 04:00 97.6 F 66 17 149/75 H 97 08/04/22 00:00 98.0 F 60 17 140/73 97 08/03/22 20:00 98.0 F 66 17 153/76 H 99 08/03/22 15:55 98.7 F 67 18 156/74 H 96 08/03/22 11:12 98.7 F 67 18 160/73 H 97 Intake and Output 08/03/22 08/04/22 08/04/22 23:59 07:59 15:59 Intake Total 240 / 240 4405 / 4765 360 / 4765 Output Total 200 / 3200 800 / 800 Balance 40 / -2960 3605 / 3965 360 / 3965 Intake: Intake, Oral Amount 240 / 240 360 / 360 Intake, Total IV Amount 4405 / 4405 Sodium Bicarbonate 150 meq In 4405 / 4405 Dextrose 5 % in Water 1,000 ml @ 100 mls/hr IV .[id number] [facility] Rx #:[id number] Output: Output, Urine Amount 200 / 3200 800 / 800 Other: Number of Unmeasured Voids 1 1 0 Number of Bowel Movements 1 Weight 88.9 kg Patient Weight 08/04/22 23:59 Weight 88.9 kg Laboratory Results - last 24 hr 08/03/22 11:27: POC Glucose 192 H 08/03/22 17:10: POC Glucose 242 H 08/03/22 20:31: POC Glucose 211 H 08/04/22 06:22: POC Glucose 203 H 08/04/22 07:27: Total Creatine Kinase 44 08/04/22 07:27: WBC 12.5 H, RBC 3.43 L, Hgb 9.8 L, Hct 28.6 L, MCV 83.3, MCH 28.4, MCHC 34.1, RDW 15.2, Plt Count 424, MPV 7.9, Neut % (Auto) 76.4, Lymph % (Auto) 15.6, [place] % (Auto) 3.6, Eos % (Auto) 3.7, Baso % (Auto) 0.8, Neut # (Auto) 9.5 H, Lymph # (Auto) 1.9, [place] # (Auto) 0.4, Eos # (Auto) 0.5 H, Baso # (Auto) 0.1 08/04/22 07:27: Sodium 135 L, Potassium 3.6 D, Chloride 96 L, Carbon Dioxide 37 H, Anion Gap 5.6, BUN 26 H, Creatinine 1.50 H, Estimated Creat Clear 55, Estimated GFR 35 L, Est GFR ( Amer) 43 L D, Glucose 159 H, Calcium 8.2 L, C-Reactive Protein 31.3 H D 08/04/22 07:27: ESR 116 H I & O for Labs for Last 24 Hours: Intake & Output 08/01/22 08/02/22 08/03/22 08/04/22 23:59 23:59 23:59 23:59 Intake Total 3186 / 3186 1042 / 1042 240 / 240 4765 / 4765 Output Total 1300 / 2000 6050 / 6050 3000 / 3200 800 / 800 Balance 1886 / 1186 -5008 / -5008 -2760 / -2960 3965 / 3965 Weight 92.9 kg 90.945 kg 88.479 kg 88.9 kg Microbiology Reports for the Last 24 Hours: Microbiology 07/29/22 13:05 Bone - Right Bone Culture - Final NO GROWTH AFTER 5 DAYS 07/29/22 13:05 Foot,Right - Abscess Gram Stain - Final 07/29/22 13:05 Foot,Right - Abscess Abscess Culture - Final NO GROWTH AFTER 5 DAYS The patient's infection will respond to the chosen ABx?: Yes (BLOOD CULTURE GRAM POS COCCI x2, ID/SENSITIVITY PENDING.) Is the patient receiving the right drug, dose, and route?: Yes Could a more targeted ABx be ordered?: No
[2022-08-04 12:00] VITALS: BP 148/67; PULSE 65; RESP 20; TEMP 36.4; O2SAT 97
[2022-08-04 12:35] LABS: POC Glucose,Bedside 207 (70-110)
--- NOTE | 2022-08-04 12:52 | EXP.DC.SUM ---
General Admission date:: 07/25/22 Discharge date: 08/04/22 HPI HPI HPI: Ms. Slade is a 62-year-old female who was transferred from [facility] today due to a syncopal event that occurred while at [facility] prior to presentation. She was found by EMS to have a blood glucose level that was 50 mg/dl on arrival to [facility] by EMS. She was given an AMP of D50 and brought to [facility] ER by EMS. While at [facility] she continued to be hypoglycemic and required an additional amp of D50, blood glucose was noted to be <49, during her work-up at [facility], Troponin was found to be elevated at 327. EKG showed Sinus Tachycardia with HR of [address] segment elevation or depression. She was noted to have a diabetic ulcer on the Right heel and WBC was elevated at 17.2. She was transferred to [facility] for higher level of care and for Cardiology evaluation due to elevated troponin and non-healing right foot ulcer. Discussion was undertaken with Cardiology who recommends an Echo, the patient had a recent CABG x 3 in 11/2021 and an [place] and Cardiac monitoring. At the outside facility the patient received Heparin, Brilinta, Atorvastatin at 1L Normal Saline. The plan of care was discussed with the patient on admission. She verbalized understanding and agreement with the plan of care. Podiatry: Consulted for right heel cellulitis and diabetic ulcer. Patient reports she has had the wound for 2-3 weeks. Prior to the wound she denies having any problem with the feet. She is diabetic, well controlled she reports at home. She states she lives at home by herself but has a brother and sister in the area. She is currently not working. Reports pain to the right foot with pressure and trying to walk. Hospital Course Hospital Course Hospital Course: The patient was admitted to the medical unit with podiatry and cardiology consultation. Routine blood pressure and blood sugar monitoring were performed for her syncopal episode presentation. A right foot wound was identified and wound cultures were acquired and she was started on broad-spectrum cephalosporin antibiotic therapy. On July 29 the patient underwent podiatry procedure in the OR. Postoperatively day 1 the patient stood on her operative leg and felt a pop. A stat MRI was acquired that identified Achilles tendon rupture. Encephalopathy was assessed throughout the day and a stat CT identified no acute changes. Her renal function identified an increased creatinine. Cefepime induced neurotoxicity was considered in the differential diagnoses and her cefepime was discontinued and she received fluid resuscitation with bicarb supplementation to assist with elevated creatinine. Subsequently an MRI of the brain identified no acute changes. With transition of her antibiotic therapy, fluid resuscitation her encephalopathy gradually improved and eventually returned to normal. PT and OT assessed the patient and recommended transition to skilled facility. Her laboratory studies were trended and identified improvement. On discharge her creatinine was 1.5 (baseline 1.7). Her CBC identified improved leukocytoses with stable hemoglobin. Her inflammatory markers identified improvement within admission CRP of 104 and on discharge 31.3. Her OR pathology identified concerns with osteomyelitis and a PICC line was placed for 6 weeks of IV daptomycin therapy. Her bone culture was positive for gram-positive cocci with sensitivities pending. Case management assisted with transition of care to nursing home facility [facility]. I spent 35 minutes in [id number] time with the patient and nursing staff concerning the discharge process. We discussed the admitting diagnoses and hospital course. We discussed identified improvement and the patient's desire to be discharged. We reviewed inpatient studies and imaging. The patient voiced understanding on the importance of follow-up with her primary care
--- NOTE | 2022-08-04 14:52 | PC.NURSE ---
report called to [facility]. ambulance scheduled for transport.
--- NOTE | 2022-08-04 15:03 | PC.NURSE ---
removed IV in right hand. deflated hernandez catheter ballon and removed.
--- NOTE | 2022-08-05 15:09 | CARE MANAGER ---
Called and spoke with [facility]. She stated that patient is doing well and they received everything needed at discharge.
== END 2022-08-04 15:35 | DRG 853 ==
PROVIDERS: Family Medicine; Nurse Practitioner Acute Care; Nurse Practitioner Family; Podiatrist; Admitting Provider Internal Medicine Adolescent Medicine; PCP Family Medicine; Visit Provider Internal Medicine Adolescent Medicine
PROC: 0QBL0ZZ Excision of Right Tarsal, Open Approach (ICD-10-PCS; principal; 2022-07-29 12:30)
DX: A41.9 Sepsis, unspecified organism (principal); G93.41 Metabolic encephalopathy; I50.31 Acute diastolic (congestive) heart failure; E11.52 Type 2 diabetes mellitus with diabetic peripheral angiopathy with gangrene; N17.9 Acute kidney failure, unspecified; L03.115 Cellulitis of right lower limb; L97.515 Non-pressure chronic ulcer of other part of right foot with muscle involvement without evidence of necrosis; L02.611 Cutaneous abscess of right foot; M86.8X7 Other osteomyelitis, ankle and foot; I96 Gangrene, not elsewhere classified; I50.22 Chronic systolic (congestive) heart failure; I13.0 Hypertensive heart and chronic kidney disease with heart failure and stage 1 through stage 4 chronic kidney disease, or unspecified chronic kidney disease; I25.10 Atherosclerotic heart disease of native coronary artery without angina pectoris; E11.649 Type 2 diabetes mellitus with hypoglycemia without coma; E11.621 Type 2 diabetes mellitus with foot ulcer; Z95.1 Presence of aortocoronary bypass graft; Z87.891 Personal history of nicotine dependence; D50.9 Iron deficiency anemia, unspecified; R77.8 Other specified abnormalities of plasma proteins; E03.9 Hypothyroidism, unspecified; E66.9 Obesity, unspecified; Z68.29 Body mass index [BMI] 29.0-29.9, adult; E11.69 Type 2 diabetes mellitus with other specified complication; Z79.84 Long term (current) use of oral hypoglycemic drugs; Z68.27 Body mass index [BMI] 27.0-27.9, adult; S86.011A Strain of right Achilles tendon, initial encounter; S92.011A Displaced fracture of body of right calcaneus, initial encounter for closed fracture; E11.628 Type 2 diabetes mellitus with other skin complications; R55 Syncope and collapse; N18.30 Chronic kidney disease, stage 3 unspecified; E53.8 Deficiency of other specified B group vitamins
CPT/HCPCS: 11044; 11043; 28001; 20240; 36569; 36410; 36415; 70450; 70551; 71045; 73620; 73630; 73650; 73700; 73718; 74018; 80048; 80053; 80061; 80202; 81001; 82140; 82550; 82607; 82803; 82962; 83036; 83525; 83540; 83550; 83605; 83735; 83880; 84145; 84443; 84484; 84681; 85007; 85025; 85651; 86140; 86850; 87040; 87070; 87075; 87077; 87186; 87205; 87430; 87641; 88304; 88305; 88311; 93005; 93306; 93923; 93926; 97162; 97165; 97167; 97530; C1713; C1751; C9803; J0696; J0878; J1610; J1756; J2405; P9016; U0003; U0005

== ENCOUNTER → 2022-08-14 11:14 | Outpatient (CLI) | payer OTHER, SELFPAY ==
[2022-08-14 16:01] LABS: Basophils # 0.1 K/mm3 (0-0.2); Basophils % 1.4 % (0.1-2.0); Eosinophils # 0.1 K/mm3 (0.0-0.4); Eosinophils % 0.9 % (0.1-12.0); Hematocrit 30.4 % (37.0-47.0); Lymphocytes # 1.3 K/mm3 (0.7-4.5); Lymphocytes % 13.7 % (10-50); Mean Corpuscular HGB Conc 32.8 g/dL (31.8-35.4); Mean Corpuscular Volume 85.4 fl (81-99); Mean Platelet Volume 8.7 fl (7.4-10.4); Monocytes # 0.3 K/mm3 (0.1-1.0); Monocytes % 3.6 % (1.7-9.3); Neutrophils # 7.7 K/mm3 (1.8-7.8); Neutrophils % 80.5 % (37.0-80.0); Platelet Count 398 K/mm3 (142-424); Red Blood Count 3.56 M/mm3 (4.20-5.40); Red Cell Distribution Width 15.2 % (11.5-17.5); White Blood Count 9.6 K/mm3 (4.8-10.8)
[2022-08-14 17:31] LABS: Erythrocyte Sedimentation Rate 117 mm/hr (0-30)
== END ==
PROVIDERS: PCP Podiatrist; Visit Provider Podiatrist
DX: M79.671 Pain in right foot (principal); S91.301A Unspecified open wound, right foot, initial encounter
CPT/HCPCS: 85025; 85651

== ENCOUNTER → 2022-08-14 13:16 | Outpatient (CLI) | payer OTHER, SELFPAY ==
--- NOTE | 2022-08-14 13:24 | XR_ITS ---
FINAL REPORT CLINICAL HISTORY: alvusion fracture of right calcaneous COMPARISON: 07/30/2022 FINDINGS: RIGHT ANKLE 3 views of the right ankle were obtained. There is a 26 mm sclerotic area in the calcaneal tuberosity versus postoperative change. There is a large bony fragment superior to the calcaneal tuberosity with up to 22 mm of distraction, was 15 mm. The mortise is intact. Visualized joint spaces are normally aligned. Moderate vascular calcifications are noted. There is soft tissue swelling. Plantar calcaneal spur is noted. IMPRESSION: Increased distraction of large bony fragment as above. Sclerotic area calcaneal tuberosity versus postoperative change. Reviewed, Interpreted and Dictated by Brendan Viera III, MD Transcribed by Sara Jasmine Authenticated and [facility]
== END ==
PROVIDERS: PCP Family Medicine; Visit Provider Podiatrist
DX: M25.571 Pain in right ankle and joints of right foot (principal); S92.001A Unspecified fracture of right calcaneus, initial encounter for closed fracture
CPT/HCPCS: 73610; 85025; 85651

== ENCOUNTER 2022-08-14 15:42 | Emergency (ER) | payer OTHER, SELFPAY ==
[2022-08-14] VITALS (10 sets, daily range): BP systolic 109–153; BP diastolic 52–87; PULSE 65–85; RESP 16–20; TEMP 36.6–36.9; O2SAT 97–100; BMI 28.4
--- NOTE | 2022-08-14 16:02 | HMH.EDGENADL ---
Discharge Plan Disposition Chief Complaint: Nausea/Vomiting/Diarrhea Prescriptions Prescriptions: No Action ondansetron 4 mg tablet,disintegrating 4 mg PO Q6H PRN (Reason: nausea and vomiting) Qty: 30 2RF oxycodone 5 mg tablet 5 mg PO Q6H PRN (Reason: post op pain) 7 Days Qty: 30 0RF levofloxacin 500 mg tablet 500 mg PO Q24H 14 Days Qty: 14 0RF Santyl 250 unit/gram ointment 1 applic topical QDAY Qty: 90 1RF atorvastatin 40 mg tablet 40 mg PO HS Label Comments: TAKE 1 TABLET BY MOUTH ONCE DAILY lisinopril 20 mg tablet 20 mg PO AM levothyroxine 75 mcg tablet 75 mcg PO DAILYDM metformin 1,000 mg tablet 1,000 mg PO BIDWMEAL Jardiance 10 mg tablet 10 mg PO AM furosemide 40 mg Tablet 40 mg PO BIDL Qty: 60 0RF carvedilol 12.5 mg Tablet 12.5 mg PO BID Qty: 60 0RF aspirin 81 mg Tablet,Delayed Release (Dr/Ec) 81 mg PO DAILY Qty: 30 0RF pantoprazole 40 mg Tablet,Delayed Release (Dr/Ec) 40 mg PO BID Qty: 60 0RF cyanocobalamin (vitamin B-12) 1,000 mcg/mL Solution 1,000 mcg IM WEEKLY Qty: 4 0RF DAPTOmycin [Cubicin 500mg vial] 500 MG 0.9 % Sodium Chloride [Sod Chlor 0.9% 50mL bag] 50 ML 100 mls/hr IV Q24H Ordered By: Duke Bowser MD Last Taken: Unknown Referrals Follow up/Referrals: Paras Mitchell [Primary Care Provider] - See instructions Instructions Patient Instructions: DI for Diarrhea and Traveler's Diarrhea -- Adult, DI for Diarrhea and Traveler's Diarrhea -- Child, DI for Nausea -- Adult, DI for Nausea -- Child Discharge ED Provider: Roshni Glover General Adult HPI General Chief complaint: Nausea/Vomiting/Diarrhea Stated complaint: vomiting, chills, diarrhea Time Seen by Provider: 08/14/22 16:02 History of Present Illness HPI narrative: Patient is a 62-year-old female recently admitted for lower extremity infection with sepsis given a PICC line sent home and outpatient antibiotics and has been in senior care facility last several days. She has been having nausea and diarrhea associated with her antibiotic infusions. She recently had a stool study that was done at her senior care including C. difficile which was negative. That history was obtained directly from the senior care. Patient was seeing her drawer waxer today who is following her outpatient for her infection given the fact that she was getting lightheaded and nauseated and having decreased function secondary to the vomiting and diarrhea they sent her over to the emergency department. Patient denies any significant abdominal pain no fevers or chills. Just worsening generalized malaise associate with nausea vomiting. Related Data Home Medications Medication Instructions Recorded Confirmed atorvastatin 40 mg tablet 40 mg PO HS High cholesterol 07/25/22 08/14/22 empagliflozin 10 mg tablet 10 mg PO AM Diabetes 07/25/22 08/14/22 (Jardiance) levothyroxine 75 mcg tablet 75 mcg PO DAILYDM hypothyroidism 07/25/22 08/14/22 lisinopril 20 mg tablet 20 mg PO AM Hypertension 07/25/22 08/14/22 metformin 1,000 mg tablet 1,000 mg PO BIDWMEAL Diabetes 07/25/22 08/14/22 Previous Rx's Medication Instructions Recorded DAPTOmycin [Cubicin 500mg vial] 100 mls/hr IV Q24H 08/04/22 500 mg aspirin 81 mg tablet,delayed 81 mg PO DAILY #30 tabs 08/04/22 release carvedilol 12.5 mg tablet 12.5 mg PO BID #60 tabs 08/04/22 cyanocobalamin (vitamin B-12) 1,000 mcg IM WEEKLY #4 mL 08/04/22 1,000 mcg/mL injection solution furosemide 40 mg tablet 40 mg PO BIDL #60 tabs 08/04/22 pantoprazole 40 mg tablet,delayed 40 mg PO BID #60 tabs 08/04/22 release collagenase clostridium histo. 250 1 applic topical QDAY wound care 08/14/22 unit/gram topical ointment (Santyl) #90 grams levofloxacin 500 mg tablet 500 mg PO Q24H infection 2 weeks 08/14/22 #14 tabs ondansetron 4 mg disintegrating 4 mg PO Q6H PRN nausea and 08/14/22 tablet vomiting #30 tabs oxycodone 5 mg tablet 5 mg PO Q6
[2022-08-14 17:26] LABS: Basophils # 0.2 K/mm3 (0-0.2); Basophils % 1.7 % (0.1-2.0); Eosinophils # 0.1 K/mm3 (0.0-0.4); Eosinophils % 0.5 % (0.1-12.0); Hematocrit 32.5 % (37.0-47.0); Hemoglobin 10.2 g/dL (12.2-16.2); Lymphocytes # 1.3 K/mm3 (0.7-4.5); Lymphocytes % 13.3 % (10-50); Mean Corpuscular HGB Conc 31.5 g/dL (31.8-35.4); Mean Corpuscular Hemoglobin 27.5 pg (27.0-31.2); Mean Corpuscular Volume 87.4 fl (81-99); Mean Platelet Volume 8.3 fl (7.4-10.4); Monocytes # 0.3 K/mm3 (0.1-1.0); Monocytes % 2.7 % (1.7-9.3); Neutrophils # 8.2 K/mm3 (1.8-7.8); Neutrophils % 81.9 % (37.0-80.0); Platelet Count 413 K/mm3 (142-424); Red Blood Count 3.72 M/mm3 (4.20-5.40); Red Cell Distribution Width 15.2 % (11.5-17.5)
[2022-08-14 17:33] LABS: Magnesium 1.7 mg/dl (1.6-2.3); Phosphorous 7.6 mg/dl (2.5-4.5)
[2022-08-14 17:43] LABS: Alanine Aminotransferase 28 U/L (12-78); Albumin Level 3.9 g/dl (3.5-5.0); Albumin/Globulin Ratio 1.2 (1.1-1.8); Alkaline Phosphatase 101 U/L (38-126); Anion Gap 32.5 mEq/L (5-15); Aspartate Amino Transferase 30 U/L (14-36); Bilirubin,Total 0.4 mg/dl (0.2-1.3); Blood Urea Nitrogen 77 mg/dl (7-17); Calcium 8.8 mg/dl (8.4-10.2); Chloride 95 mmol/L (98-107); Creatinine Clearance Estimated 9 mL/min (50-200); Estimated Glomerular Filt Rate 5 ml/min (>60); GFR (African American) 6 ML/MIN (>60); Globulin 3.3 g/dL (1.3-3.2); Glucose 75 mg/dl (74-100); Sodium 129 mmol/L (136-145); Total Protein,Serum 7.2 g/dl (6.3-8.2)
[2022-08-14 17:55] LABS: Carbon Dioxide 9 mmol/L (22.0-30.0); Potassium 7.5 mmoL/L (3.5-5.1)
[2022-08-14 17:56] LABS: Lactic Acid 7.9 mmol/L (0.7-2.1)
--- NOTE | 2022-08-14 17:57 | PC.NURSE ---
notified ER of critical labs (potassium, lactic acid, creatinine, co2)
--- NOTE | 2022-08-14 18:07 | ECG_ITS ---
APPROVED REPORT Exam: Resting ECG HR:78 bpm ECG Measurements Heart Rate 78 AXES NM 209 P 53 QRSd 128 QRS 13 QT 427 T 114 QTc 461 Conclusion SINUS RHYTHM POSSIBLE ANTERIOR MYOCARDIAL INFARCTION , OF INDETERMINATE AGE [30 ms Q WAVE IN V3/V4, OR R < 0.2 mV IN V4] MODERATE T-WAVE ABNORMALITY, CONSIDER LATERAL ISCHEMIA [-0.1+ mV T-WAVE IN I/aVL/V5/V6] ABNORMAL ECG UNCONFIRMED REPORT Electronically signed by : Jordon Caal MD 08/15/2022 17:19:56
--- NOTE | 2022-08-14 18:26 | CT_ITS ---
PROCEDURE INFORMATION: Exam: CT Right Lower Extremity Without Contrast; Lower Leg Exam date and time: 08/14/2022 6:41 PM Age: 62 years old Clinical indication: Pain; Foot; Right; Prior surgery; Surgery date: 3-7 days post-operative; Surgery type: PT unaware of SX name; Additional info: Possible dry gangrene TECHNIQUE: Imaging protocol: CT of the right lower extremity without contrast was performed. Exam focused on the lower leg. Radiation optimization: All CT scans at this facility use at least one of these dose optimization techniques: automated exposure control; mA and/or kV adjustment per patient size (includes targeted exams where dose is matched to clinical indication); or iterative reconstruction. REPORTING DATA: Count of CT and Cardiac NM exams in prior 12 months: This patient has received 2 known CTs and 0 known cardiac nuclear medicine studies in the 12 months prior to the current study. COMPARISON: MR LOWER LEG RT WO CON 07/30/2022 9:58 AM FINDINGS: Bones/joints: There is a 2.5 cm osseous fragment posterior to the talus and superior to the posterior calcaneus which appears to have arisen from the posterior margin of the calcaneus itself. 2 cm area of osseous cement noted within osseous defect in the posterior calcaneus. Osseous structures otherwise appear intact. No significant arthritic changes. Soft tissues: Soft tissue defect of the heel is noted with exposed bone in the area of osseous cement in the posterior calcaneus. No loculated soft tissue fluid collection seen. Small amount of scattered soft tissue gas noted adjacent to the osseous fragment and in the subcutaneous soft tissues in the area of soft tissue ulceration/defect. Vasculature: Diffuse small-vessel arterial calcification is noted throughout the right lower leg. IMPRESSION: 1. Large soft tissue defect/ulcer of the right heel with underlying bone cement in the posterior calcaneus and 2.5 cm displaced osseous fragment superior to the posterior calcaneus. Mild scattered soft tissue gas in the right heel could be due to recent surgery, although infection not excluded. 2. Findings of peripheral vascular disease noted. Right lower leg otherwise appears normal.
--- NOTE | 2022-08-14 18:26 | PC.NURSE ---
called [facility] per ER Doctor for consult about pt. [facility] advised [facility] could not accept without being on a waiting list
--- NOTE | 2022-08-14 18:27 | PC.NURSE ---
called [facility] per ER Doctor for consult with this pt for Hyperkelemia, TYLOR, Gangrine to the right lower extremity
--- NOTE | 2022-08-14 18:36 | PC.NURSE ---
pt to CT
--- NOTE | 2022-08-14 18:51 | PC.NURSE ---
pt return from Ct via stretcher
--- NOTE | 2022-08-14 18:52 | PC.NURSE ---
[facility] called back to speak with our ER Doctor
--- NOTE | 2022-08-14 18:52 | PC.NURSE ---
[facility] denied transfer
--- NOTE | 2022-08-14 19:01 | PC.NURSE ---
called [facility] to see about getting this pt transferred to [facility]
--- NOTE | 2022-08-14 19:03 | PC.NURSE ---
[facility] denied transfer. they were checking with [facility]
[2022-08-14 19:57] LABS: VBG Base Excess -20.4 mmol/L (-2.4-2.3); VBG HCO3 8.7 mmol/L (23-30); VBG Oxygen Saturation 98.4 % (50-70); VBG PCO2 26.2 mmol/L (35-51); VBG Total CO2 9.5 mmol/L (23-27)
--- NOTE | 2022-08-14 20:00 | PC.NURSE ---
Spoke with [facility] potential transfer. Awaiting call back from hospitalist.
[2022-08-14 20:01] LABS: VBG PH 7.14 mmol/L (7.31-7.41)
--- NOTE | 2022-08-14 20:01 | PC.NURSE ---
Critical lab values called by taiwo Bland, ph 7.14, pco2 26.2, p0 145. notified.
--- NOTE | 2022-08-14 20:05 | PC.NURSE ---
speaking with [facility] transfer center for pt transfer at this time
[2022-08-14 20:11] LABS: Coronavirus 19, PCR Not Detected (NotDetected); Influenza A, PCR Not Detected (NotDetected); Influenza B, PCR Not Detected (NotDetected)
--- NOTE | 2022-08-14 20:12 | PC.NURSE ---
Everardo at bedside speaking with pt and family member at this time
--- NOTE | 2022-08-14 20:22 | PC.NURSE ---
Pt accepted to [facility] by Juan Antonio Puente MD
--- NOTE | 2022-08-14 20:46 | PC.NURSE ---
called [facility] for transfer. staff stated they were sure if they could take the bicarb drip and would be calling us back
== END 2022-08-14 21:52 | disposition short-term general hospital (02) ==
PROVIDERS: Emergency Provider Student in an Organized Health Care Education/Training Program; PCP Family Medicine
DX: A41.9 Sepsis, unspecified organism (principal)
CPT/HCPCS: 73700; 80053; 82803; 83605; 83735; 84100; 85025; 87040; 93005; 96361; 96365; 96366; 96367; 96368; 96375; 99291; C9803; J2405; U0003; U0005

== ENCOUNTER 2023-06-03 10:34 | Emergency (ER) | payer OTHER, SELFPAY ==
[2023-06-03] VITALS (7 sets, daily range): BP systolic 108–183; BP diastolic 70–90; PULSE 73–82; RESP 16–20; TEMP 36.7–36.8; O2SAT 96–99; BMI 38.7
--- NOTE | 2023-06-03 11:02 | PC.NURSE ---
Urine sample obtained with use of bedpan
[2023-06-03 11:05] LABS: Microscopic, Urine URINE MICROSCOPIC (MICROSCOPIC)
[2023-06-03 11:07] LABS: Appearance,Urine CLOUDY (Clear); Bilirubin,Urine Negative (Negative); Blood, Urine 2+ (Negative); Color,Urine YELLOW (Yellow); Glucose,Urine (UA) Negative (Negative); Ketones,Urine Negative (Negative); Leukocyte Esterase,Urine 2+ (Negative); Nitrate,Urine Negative (Negative); Protein,Urine 2+ (Negative); Specific Gravity, Urine 1.025 (1.005-1.030); Urobilinogen,Urine 0.2 EU/dl (0.2)
[2023-06-03 11:21] LABS: WBC,Urine 50-100 #/hpf (0-3)
[2023-06-03 11:22] LABS: Bacteria,Urine Trace /lpf
--- NOTE | 2023-06-03 11:43 | PC.NURSE ---
Rounded on pt. No needs or complaints voiced at this time. Call light within reach.
--- NOTE | 2023-06-03 11:54 | PC.NURSE ---
Dr. Puente at BS
[2023-06-03] MEDS: CEFTRIAXONE SODIUM 1 GM in 0.9 % SODIUM CHLORIDE 50 ML IV (12:09)
--- NOTE | 2023-06-03 12:41 | PC.NURSE ---
Rounded on pt. No needs voiced at this time. Call light remains within reach.
--- NOTE | 2023-06-03 12:52 | ED_ITS ---
Discharge Plan Disposition Patient Disposition: Home, Self-Care Prescriptions Prescriptions: New cefdinir 300 mg capsule 300 mg PO BID 14 Days Qty: 28 0RF nystatin 100,000 unit/gram ointment 1 applic topical TID Qty: 30 0RF nystatin 100,000 unit/gram ointment 1 applic topical TID Qty: 30 0RF No Action ondansetron 4 mg tablet,disintegrating 4 mg PO Q6H PRN (Reason: nausea and vomiting) Qty: 30 2RF oxycodone 5 mg tablet 5 mg PO Q6H PRN (Reason: post op pain) 7 Days Qty: 30 0RF levofloxacin 500 mg tablet 500 mg PO Q24H 14 Days Qty: 14 0RF Santyl 250 unit/gram ointment 1 applic topical QDAY Qty: 90 1RF atorvastatin 40 mg tablet 40 mg PO HS Patient Comments: TAKE 1 TABLET BY MOUTH ONCE DAILY lisinopril 20 mg tablet 20 mg PO AM levothyroxine 75 mcg tablet 75 mcg PO DAILYDM metformin 1,000 mg tablet 1,000 mg PO BIDWMEAL Jardiance 10 mg tablet 10 mg PO AM furosemide 40 mg Tablet 40 mg PO BIDL Qty: 60 0RF carvedilol 12.5 mg Tablet 12.5 mg PO BID Qty: 60 0RF aspirin 81 mg Tablet,Delayed Release (Dr/Ec) 81 mg PO DAILY Qty: 30 0RF pantoprazole 40 mg Tablet,Delayed Release (Dr/Ec) 40 mg PO BID Qty: 60 0RF cyanocobalamin (vitamin B-12) 1,000 mcg/mL Solution 1,000 mcg IM WEEKLY Qty: 4 0RF DAPTOmycin [Cubicin 500mg vial] 500 MG 0.9 % Sodium Chloride [Sod Chlor 0.9% 50mL bag] 50 ML 100 mls/hr IV Q24H Ordered By: Duke Bowser MD Last Taken: Unknown Referrals Follow up/Referrals: Paras Mitchell [Primary Care Provider] - See instructions Clinical Impressions Clinical Impression: UTI (urinary tract infection) Qualifiers: Urinary tract infection type: acute pyelonephritis Qualified Code(s): N10 - Acute pyelonephritis Instructions Patient Instructions: DI for Urinary Tract Infection (UTI), DI for Urinary Tract Infection in Children Discharge ED Provider: Juan Antonio Puente General Adult [facility] General Chief complaint: Urogenital-Female Stated complaint: pain in abdm and poss uti Time Seen by Provider: 06/03/23 10:38 Mode of Arrival: Ambulatory Source of Information: Patient Limitations: No Limitations Description of Symptoms (Recalled from ER Triage Doc. by RN): pt presents to ED with c/o pain with urination, diarrhea, not feeling well. symptoms ongoing for the past 2 days. History of Present Illness HPI narrative: Patient presents with diarrhea and dysuria. Diarrhea started 2 weeks ago and is seen her family doctor. Patient started having dysuria with every time she urinates for the past 2 days as well. Now patient presents to the ER after going to her family doctor and her family doctor referring her to the emergency department, unknown why. No hematuria, fevers or chills, nausea or vomiting, flank pain, or any other concerns. Related Data Home Medications Medication Instructions Recorded Confirmed atorvastatin 40 mg tablet 40 mg PO HS High cholesterol 07/25/22 08/14/22 empagliflozin 10 mg tablet 10 mg PO AM Diabetes 07/25/22 08/14/22 (Jardiance) levothyroxine 75 mcg tablet 75 mcg PO DAILYDM hypothyroidism 07/25/22 08/14/22 lisinopril 20 mg tablet 20 mg PO AM Hypertension 07/25/22 08/14/22 metformin 1,000 mg tablet 1,000 mg PO BIDWMEAL Diabetes 07/25/22 08/14/22 Previous Rx's Medication Instructions Recorded DAPTOmycin [Cubicin 500mg vial] 100 mls/hr IV Q24H 08/04/22 500 mg aspirin 81 mg tablet,delayed 81 mg PO DAILY #30 tabs 08/04/22 release carvedilol 12.5 mg tablet 12.5 mg PO BID #60 tabs 08/04/22 cyanocobalamin (vitamin B-12) 1,000 mcg IM WEEKLY #4 mL 08/04/22 1,000 mcg/mL injection solution furosemide 40 mg tablet 40 mg PO BIDL #60 tabs 08/04/22 pantoprazole 40 mg tablet,delayed 40 mg PO BID #60 tabs 08/04/22 release collagenase clostridium histo. 250 1 applic topical QDAY wound care 08/14/22 unit/gram topical ointment (Santyl) #90 grams levofloxacin 500 mg tablet 500 mg PO Q24H infection 2 weeks 08/14/22 #14 tabs ondansetron 4 mg disintegrating 4 mg PO Q6H PRN nausea and 08/14/22 tablet vomiting #30 tabs oxycodone 5 mg tablet 5 mg PO Q6H PRN post op pain 1 08/14/22 week #30 tabs cefdinir 300 mg capsule 300 mg PO BID 14 days #28 caps 06/03/23 nystatin 100,000 unit/gram topical 1 applic topical TID #30 grams 06/03/23 ointment nystatin 100,000 unit/gram topical 1 applic topical TID #30 grams 06/03/23 ointment Allergies Allergy/AdvReac Type Severity Reaction Status Date / Time No Known Allergies Allergy Verified 08/14/22 14:16 PFSH [facility] Disclaimer: The information contained in this section may have been updated after the patient was seen, as this information can be updated by other users. Medical History (Updated 06/03/23 @ 13:53 by Juan Antonio Puente MD) Coronary artery disease Diabetes Diastolic congestive heart failure Elevated HDL HTN (hypertension) Hyperlipidemia Hypertension Hypothyroid Open wound of right foot Surgical History S/P CABG x 3 Family History Brother Hypertension Mother Hypertension Father Hypertension Mother Hypothyroid Sister Hypothyroid Father COPD (chronic obstructive pulmonary disease) Father Lung cancer Social History Smoking Status: Former smoker tobacco type: cigarettes packs per day: 1 years smoked: 2 alcohol intake: never substance use type: denies use current occupational status: unemployed Travel in the last 8 weeks: None adopted: No caregiver/support person: Yes ([employer]) foster care: No household members: none housing: house lives independently: Yes marital status: single number of children: 0 number of grandchildren: 0 education level: high school service: No fci: No current occupational exposures/hazards: No pets and animals: No leisure activities: other sexually active: No diet: diabetic well-balanced diet: about half the time caffeine: No physical activity: walking frequency: 1-2 times per week ROS Obtained: Yes All systems reviewed & no additional complaints except as documented Physical Exam General General appearance: alert and in no apparent distress Head Head exam: atraumatic and normocephalic Eye Eye exam: Present normal appearance, PERRL and EOMI ENT ENT exam: Present mucous membranes moist Neck Neck exam: Present normal inspection, full ROM and trachea midline Respiratory Respiratory exam: Absent respiratory distress, wheezes, stridor, accessory muscle use or prolonged expiratory phase Cardiovascular Cardiovascular exam: Present normal rhythm Abdominal Exam Abdominal exam: Present soft; Absent distention, tenderness, guarding, rebound or rigidity Extremities Exam Extremities exam: Absent edema Neurological Exam Neurological exam: Present alert, oriented X3, CN II-XII intact and normal gait; Absent motor sensory deficit Skin Skin exam: Present warm and dry; Absent diaphoresis or erythema Medical Decision Making Medical Records Medical records reviewed: Yes I reviewed the patient's medical records. Richard Inquiry Pt receiving controlled substance: No Richard was queried for this patient: No Vital Signs: 06/03/23 10:36 06/03/23 11:30 06/03/23 12:00 Temperature 98.2 F Temperature Source Oral Pulse Rate 73 77 Pulse Rate [Left Radial] 81 Respiratory Rate 16 Blood Pressure 183/85 H 178/78 H Blood Pressure [Right Arm] 172/86 H Blood Pressure Mean 104 111 Blood Pressure Mean [Right Arm] 114 02 Sat by Pulse Oximetry 99 98 96 Oxygen Delivery Method 06/03/23 12:31 06/03/23 13:00 06/03/23 13:30 Temperature Temperature Source Pulse Rate 78 78 81 Pulse Rate [Left Radial] Respiratory Rate Blood Pressure 168/78 H 179/80 H 168/90 H Blood Pressure [Right Arm] Blood Pressure Mean 108 106 Blood Pressure Mean [Right Arm] 02 Sat by Pulse Oximetry 98 96 98 Oxygen Delivery Method Room Air Lab Data Lab Results 06/03/23 11:00: Urine Color Yellow, Urine Appearance Cloudy, Urine pH 6.0, Ur Specific [place] 1.025, Urine Protein 2+, Urine Glucose (UA) Negative, Urine Ketones Negative, Urine Blood 2+, Urine Nitrate Negative, Urine Bilirubin Negative, Urine Urobilinogen 0.2, Ur Leukocyte Esterase 2+ A, Urine RBC None, Urine WBC 50-100, Ur Squamous Epith Cells 3-5, Urine Bacteria Trace Orders (Tests/Meds): ED MEDICATIONS Generic Name Dose Route Start Last Admin Trade Name Freq PRN Reason Stop Dose Admin Sodium Chloride 10 ml 06/03/23 10:56 Sodium Chloride 0.9% 10ml Flush Syringe IV 07/03/23 10:55 NEEDED PRN Maintain IV Site Discontinued Medications Generic Name Dose Route Start Last Admin Trade Name Jazzmine PRN Reason Stop Dose Admin Ceftriaxone Sodium 1 gm/ 50 mls @ 100 mls/hr 06/03/23 12:02 06/03/23 12:09 Sodium Chloride IV 06/03/23 12:31 100 mls/hr ONCE ONE Administration ORDERS Category Date Time Status UA [Urinalysis and Microscopic] Stat Lab 06/03/23 11:00 Completed Urine Culture Stat Micro 06/03/23 11:00 Received Medical Decision Narrative: Patient presents with diarrhea and dysuria. Diarrhea started 2 weeks ago and is seen her family doctor. Patient started having dysuria with every time she urinates for the past 2 days as well. Now patient presents to the ER after going to her family doctor and her family doctor referring her to the emergency department, unknown why. No hematuria, fevers or chills, nausea or vomiting, flank pain, or any other concerns. History was obtained via conversation with patient. On arrival, patient hemodynamically stable, alert, oriented x4, appropriate, GCS 15, moving all extremities spontaneously, pupils equal and reactive to light. Full physical exam performed and significant for well-appearing, no acute distress. Mild abdominal tenderness in her left lower quadrant concerning for possible colitis, but no suprapubic tenderness. No flank tenderness. Normotensive, nontachycardic, afebrile. Differential includes UTI, enteritis, diverticulitis, diverticulosis, enteritis, among others. Workup independently interpreted and significant for UA with protein, ketones, blood, leukocyte Estrace and bacteria concerning for UTI, possibly developing pyelonephritis. Hematologic workup and abdominal CT imaging was considered, but deemed unnecessary given results with urine and patient's history. On reevaluation, patient given ceftriaxone. Given patient presentation, workup, history, this most likely represents acute urinary tract infection. Because patient at baseline without signs or symptoms of clinical decompensation, deemed appropriate for discharge. Results were relayed to patient who voiced understanding and were agreeable to outpatient management and follow up. At the time of discharge the patient was hemodynamically stable, tolerating PO, and mobilizing appropriately. Critical Care Critical Care Time Critical Care Time: No
--- NOTE | 2023-06-03 13:12 | PC.NURSE ---
Dr. Puente at [facility] to update pt on results and POC
--- NOTE | 2023-06-03 13:39 | PC.NURSE ---
Barrier cream applied to pt buttock. Sister and brother at stated She is no better than when we got here Advised the visitors Dr. Puente would be back in to speak with them.
--- NOTE | 2023-06-06 02:39 | PC.NURSE ---
Dr. Meyer looked at the gram negative rods result in the pts urine. Dr. Meyer states the pt was discharged on the appropriate antibiotic.
== END 2023-06-03 14:19 | disposition home or self-care (01) ==
PROVIDERS: Emergency Provider Emergency Medicine; PCP Family Medicine
DX: N10 Acute pyelonephritis (principal); R19.7 Diarrhea, unspecified; I11.0 Hypertensive heart disease with heart failure; I50.30 Unspecified diastolic (congestive) heart failure; I25.10 Atherosclerotic heart disease of native coronary artery without angina pectoris; E11.9 Type 2 diabetes mellitus without complications; E78.5 Hyperlipidemia, unspecified; E03.9 Hypothyroidism, unspecified; Z87.891 Personal history of nicotine dependence
CPT/HCPCS: 81001; 87086; 96365; 99284; J0696

== ENCOUNTER 2023-07-29 01:38 | Observation (INO) | payer OTHER, SELFPAY ==
[2023-07-29] VITALS (8 sets, daily range): BP systolic 125–176; BP diastolic 71–91; PULSE 69–79; RESP 17–18; TEMP 36.5–37; O2SAT 94–98; BMI 38.0; BMI 33.2
--- NOTE | 2023-07-29 02:00 | HMH.EDGENADL ---
Discharge Plan Disposition Patient Disposition: Admitted Chief Complaint: Nausea/Vomiting/Diarrhea Prescriptions Prescriptions: No Action ondansetron 4 mg tablet,disintegrating 4 mg PO Q6H PRN (Reason: nausea and vomiting) Qty: 30 2RF oxycodone 5 mg tablet 5 mg PO Q6H PRN (Reason: post op pain) 7 Days Qty: 30 0RF levofloxacin 500 mg tablet 500 mg PO Q24H 14 Days Qty: 14 0RF Santyl 250 unit/gram ointment 1 applic topical QDAY Qty: 90 1RF atorvastatin 40 mg tablet 40 mg PO HS Patient Comments: TAKE 1 TABLET BY MOUTH ONCE DAILY lisinopril 20 mg tablet 20 mg PO AM levothyroxine 75 mcg tablet 75 mcg PO DAILYDM metformin 1,000 mg tablet 1,000 mg PO BIDWMEAL Jardiance 10 mg tablet 10 mg PO AM furosemide 40 mg Tablet 40 mg PO BIDL Qty: 60 0RF carvedilol 12.5 mg Tablet 12.5 mg PO BID Qty: 60 0RF aspirin 81 mg Tablet,Delayed Release (Dr/Ec) 81 mg PO DAILY Qty: 30 0RF pantoprazole 40 mg Tablet,Delayed Release (Dr/Ec) 40 mg PO BID Qty: 60 0RF cyanocobalamin (vitamin B-12) 1,000 mcg/mL Solution 1,000 mcg IM WEEKLY Qty: 4 0RF DAPTOmycin [Cubicin 500mg vial] 500 MG 0.9 % Sodium Chloride [Sod Chlor 0.9% 50mL bag] 50 ML 100 mls/hr IV Q24H Ordered By: Duke Bowser MD Last Taken: Unknown cefdinir 300 mg capsule 300 mg PO BID 14 Days Qty: 28 0RF nystatin 100,000 unit/gram ointment 1 applic topical TID Qty: 30 0RF nystatin 100,000 unit/gram ointment 1 applic topical TID Qty: 30 0RF Referrals Follow up/Referrals: Paras Mitchell [Primary Care Provider] - See instructions Clinical Impressions Clinical Impression: Pyelonephritis, ESBL E. coli carrier Instructions Patient Instructions: DI for Diarrhea and Traveler's Diarrhea -- Adult, DI for Diarrhea and Traveler's Diarrhea -- Child, DI for Nausea -- Adult, DI for Nausea -- Child Discharge ED Provider: Juan Antonio Puente General Adult HPI General Chief complaint: Nausea/Vomiting/Diarrhea Stated complaint: lower abdominal pain, pain when urinating, nausea Time Seen by Provider: 07/29/23 01:45 History of Present Illness HPI narrative: 63-year-old female history of hypertension, hyperlipidemia, CAD status post three-vessel, type 2 diabetes with diabetic foot ulcer on the right lower extremity, deconditioning, sedentary lifestyle presenting with dysuria. Patient states that she has been having dysuria on and off for the last 2 weeks. Because she has a history of ESBL E. coli, she has been on and off antibiotics since her last visit here in June. Has been on antibiotics for about 3 to 4 weeks at this point, per her and family. Currently taking Bactrim, which she started today. She has had associated diarrhea for the past couple of months which seems like it is getting worse. He states that his dark green, malodorous. Patient having lower pelvic/genitourinary pain when urinating that radiates to her right flank. Denies fevers, chills, hematuria, vomiting, epigastric pain, inability to tolerate p.o. intake, or any other concerns. Related Data Home Medications Medication Instructions Recorded Confirmed atorvastatin 40 mg tablet 40 mg PO HS High cholesterol 07/25/22 08/14/22 empagliflozin 10 mg tablet 10 mg PO AM Diabetes 07/25/22 08/14/22 (Jardiance) levothyroxine 75 mcg tablet 75 mcg PO DAILYDM hypothyroidism 07/25/22 08/14/22 lisinopril 20 mg tablet 20 mg PO AM Hypertension 07/25/22 08/14/22 metformin 1,000 mg tablet 1,000 mg PO BIDWMEAL Diabetes 07/25/22 08/14/22 Previous Rx's Medication Instructions Recorded DAPTOmycin [Cubicin 500mg vial] 100 mls/hr IV Q24H 08/04/22 500 mg aspirin 81 mg tablet,delayed 81 mg PO DAILY #30 tabs 08/04/22 release carvedilol 12.5 mg tablet 12.5 mg PO BID #60 tabs 08/04/22 cyanocobalamin (vitamin B-12) 1,000 mcg IM WEEKLY #4 mL 08/04/22 1,000 mcg/mL injection solution furosemide 40 mg tablet 40 mg PO BIDL #60 tabs 08/04/22 pantoprazole 40 mg tablet,delayed 40 mg PO BID #60 tabs 08/04/22 release collagenase clostridium histo. 250 1 applic topical QDAY wound care 08/14/22 unit/gram topical ointment (Santyl) #90 grams levofloxacin 500 mg tablet 500 mg PO Q24H infection 2 weeks 08/14/22 #14 tabs ondansetron 4 mg disintegrating 4 mg PO Q6H PRN nausea and 08/14/22 tablet vomiting #30 tabs oxycodone 5 mg tablet 5 mg PO Q6H PRN post op pain 1 08/14/22 week #30 tabs cefdinir 300 mg capsule 300 mg PO BID 14 days #28 caps 06/03/23 nystatin 100,000 unit/gram topical 1 applic topical TID #30 grams 06/03/23 ointment nystatin 100,000 unit/gram topical 1 applic topical TID #30 grams 06/03/23 ointment Allergies Allergy/AdvReac Type Severity Reaction Status Date / Time No Known Allergies Allergy Verified 08/14/22 14:16 PFSH PFS Disclaimer: The information contained in this section may have been updated after the patient was seen, as this information can be updated by other users. Medical History (Updated 07/29/23 @ 03:24 by Juan Antonio Puente MD) Coronary artery disease Diabetes Diastolic congestive heart failure Elevated HDL HTN (hypertension) Hyperlipidemia Hypertension Hypothyroid Open wound of right foot Surgical History S/P CABG x 3 Family History Brother Hypertension Mother Hypertension Father Hypertension Mother Hypothyroid Sister Hypothyroid Father COPD (chronic obstructive pulmonary disease) Father Lung cancer Social History Smoking Status: Never smoker years smoked: 2 alcohol intake: never substance use type: denies use current occupational status: unemployed Travel in the last 8 weeks: None adopted: No caregiver/support person: Yes ([employer]) foster care: No household members: none housing: house lives independently: Yes marital status: single number of children: 0 number of grandchildren: 0 education level: high school service: No care home: No current occupational exposures/hazards: No pets and animals: No leisure activities: other sexually active: No diet: diabetic well-balanced diet: about half the time caffeine: No physical activity: walking frequency: 1-2 times per week ROS Obtained: Yes All systems reviewed & no additional complaints except as documented Physical Exam General General appearance: alert, in no apparent distress and obese Head Head exam: atraumatic and normocephalic Eye Eye exam: Present normal appearance, PERRL and EOMI ENT ENT exam: Present mucous membranes moist Neck Neck exam: Present normal inspection, full ROM and trachea midline Respiratory Respiratory exam: Absent respiratory distress, wheezes, stridor, accessory muscle use or prolonged expiratory phase Cardiovascular Cardiovascular exam: Present normal rhythm Abdominal Exam Abdominal exam: Present soft and tenderness; Absent distention, guarding, rebound or rigidity Abdominal tenderness: Present suprapubic and mild Extremities Exam Extremities exam: Absent edema Back Exam Back exam: Present CVA tenderness (R); Absent CVA tenderness (L) Neurological Exam Neurological exam: Present alert, oriented X3, CN II-XII intact and normal gait; Absent motor sensory deficit Skin Skin exam: Present warm and dry; Absent diaphoresis or erythema Other Other exam information: Inflatable boot right lower extremity Medical Decision Making Medical Records Medical records reviewed: Yes I reviewed the patient's medical records. Richard Inquiry Pt receiving controlled substance: No Richard was queried for this patient: No Vital Signs: 07/29/23 02:01 07/29/23 01:49 07/29/23 02:00 Temperature 98.0 F Temperature Source Oral Pulse Rate 79 76 Pulse Rate [Left Radial] 74 Respiratory Rate 17 Blood Pressure 160/80 H 176/91 H Blood Pressure [Right Arm] 160/80 H Blood Pressure Mean [Right Arm] 106 Blood Pressure Source [Right Arm] Automatic Cuff Blood Pressure Position [Right Arm] Sitting 02 Sat by Pulse Oximetry 97 95 94 L Oxygen Delivery Method Room Air Lab Data Lab Results 07/29/23 02:07: WBC 6.7, RBC 3.21 L, Hgb 9.2 L, Hct 28.6 L, MCV 89.1, MCH 28.5, MCHC 32.0, RDW 16.5, Plt Count 295, MPV 7.8, Neut % (Auto) 57.0, Lymph % (Auto) 26.4, [place] % (Auto) 5.2, Eos % (Auto) 10.8, Baso % (Auto) 0.6, Neut # (Auto) 3.8, Lymph # (Auto) 1.8, [place] # (Auto) 0.4, Eos # (Auto) 0.7 H, Baso # (Auto) 0.0, Sodium 137, Potassium 5.4 H, Chloride 113 H, Carbon Dioxide 17 L, Anion Gap 12.4, BUN 31 H, Creatinine 1.60 H, Estimated Creat Clear 64, Estimated GFR 33 L, Est GFR ( Amer) 39 L, Glucose 164 H, Lactate 0.9, Calcium 8.5, Total Bilirubin 0.3, AST 19, ALT 15, Alkaline Phosphatase 99, Total Protein 6.3, Albumin 3.2 L, Globulin 3.1, Albumin/Globulin Ratio 1.0 L 07/29/23 02:23: Urine Color Yellow, Urine Appearance Cloudy, Urine pH 6.0, Ur Specific [place] 1.025, Urine Protein 3+, Urine Glucose (UA) Negative, Urine Ketones Negative, Urine Blood 2+, Urine Nitrate Positive, Urine Bilirubin Negative, Urine Urobilinogen 0.2, Ur Leukocyte Esterase 2+ A, Urine RBC 10-20, Urine WBC 20-50, Ur Squamous Epith Cells 3-5, Urine Bacteria 1+ 07/29/23 02:07 07/29/23 02:07 Orders (Tests/Meds): ED MEDICATIONS Generic Name Dose Route Start Last Admin Trade Name Freq PRN Reason Stop Dose Admin Lactated Ringer's 1,000 mls @ 999 mls/hr 07/29/23 03:11 07/29/23 03:17 Lactated Ringer's 1000 Ml Bag IV 07/29/23 04:11 999 mls/hr .Q1H1M ONE Administration Ondansetron HCl 4 mg 07/29/23 03:11 07/29/23 03:17 Ondansetron 4mg/2ml Vial IV 07/29/23 03:12 4 mg ONCE ONE Administration Discontinued Medications Generic Name Dose Route Start Last Admin Trade Name Freq PRN Reason Stop Dose Admin Ertapenem 1 gm 07/29/23 02:44 07/29/23 02:54 Ertapenem Sodium 1 Gm Vial IM 07/29/23 02:45 Not Given ONCE ONE Ertapenem 1 gm/ Sodium 50 mls @ 100 mls/hr 07/29/23 02:47 07/29/23 02:52 Chloride IV 07/29/23 02:48 100 mls/hr ONCE ONE Administration ORDERS Category Date Time Status CBC w/Auto Diff [Complete Blood Count Auto Diff] Stat Lab 07/29/23 02:07 Completed CMP [Comprehensive Metabolic Panel] Stat Lab 07/29/23 02:07 Completed Diarrhea 6-11 Panel, Cdiff PCR Stat Lab 07/29/23 01:59 Ordered Lactic Acid Stat Lab 07/29/23 02:07 Completed UA [Urinalysis and Microscopic] Stat Lab 07/29/23 02:23 Completed Urine Culture Stat Micro 07/29/23 02:23 Received Medical Decision Narrative: 63-year-old female history of hypertension, hyperlipidemia, CAD status post three-vessel, type 2 diabetes with diabetic foot ulcer on the right lower extremity, deconditioning, sedentary lifestyle presenting with dysuria. Patient states that she has been having dysuria on and off for the last 2 weeks. Because she has a history of ESBL E. coli, she has been on and off antibiotics since her last visit here in June. Has been on antibiotics for about 3 to 4 weeks at this point, per her and family. Currently taking Bactrim, which she started today. She has had associated diarrhea for the past couple of months which seems like it is getting worse. He states that his dark green, malodorous. Patient having lower pelvic/genitourinary pain when urinating that radiates to her right flank. Denies fevers, chills, hematuria, vomiting, epigastric pain, inability to tolerate p.o. intake, or any other concerns. Notably, patient had colonoscopy done a little over a month prior to this visit and was completely normal, per family. It should be noted the patient has numerous untreated comorbidities, chronic sedentary lifestyle, chronic diarrhea which is likely complicating care. History was obtained via conversation with patient and family. On arrival, patient hemodynamically stable, alert, oriented x4, appropriate, GCS 15, moving all extremities spontaneously, pupils equal and reactive to light. Full physical exam performed and significant for well-appearing woman in no acute distress. Abdomen is soft, mildly tender in suprapubic area. No evidence of peritonitis. She does have right flank tenderness and not left flank tenderness. No overlying skin changes. Nondistended, no tenderness elsewhere. Hemodynamically stable, mildly hypertensive and nontachycardic. Afebrile. Differential includes cystitis, pyelonephritis, nephrolithiasis, PUD, gastritis, enteritis, gastroenteritis, colitis, diverticulitis, aortic pathology, mesenteric ischemia among others among others. Patient was given fluids, Zofran for symptomatic management and correction of underlying abnormalities. Workup independently interpreted and significant for concern for pyelonephritis with protein, blood, leukocyte Estrace, nitrates, and bacteria. Stable kidney function, no leukocytosis. CT abdomen pelvis was considered. Patient does have physical exam consistent with concern for stones, but given history, more likely pyelonephritis with crescendo symptoms over a couple of weeks. No colicky pain. On reevaluation, patient still nauseated, given Zofran. She was also given 1 g ertapenem IV after independent interpretation of previous urinary studies and results. Extensive conversation was had with patient and family regarding options. Ultimately, regarding social determinants of health, patient has no ability to return to the emergency department or to infusion center for ertapenem infusions over the next couple of days. Susceptibilities demonstrate Macrobid sensitivity, but given poor renal penetration, this is deemed inappropriate outpatient management. Because patient has no other ability to return to the hospital, or receive outpatient infusions without reasonable oral alternative, deemed appropriate for inpatient management. Given patient presentation, workup, history, this most likely represents multidrug-resistant pyelonephritis. Less likely aortic pathology given urinary symptoms, burning and suprapubic pain without other abdominal pain. Also no evidence of hematuria. Less likely to be blood flow issue of mesenteric ischemia given focal tenderness and pain associated with urination. Critical Care Critical Care Time Critical Care Time: No
[2023-07-29 02:17] LABS: Basophils % 0.6 % (0.1-2.0); Eosinophils # 0.7 K/mm3 (0.0-0.4); Eosinophils % 10.8 % (0.1-12.0); Hematocrit 28.6 % (37.0-47.0); Hemoglobin 9.2 g/dL (12.2-16.2); Lymphocytes # 1.8 K/mm3 (0.7-4.5); Lymphocytes % 26.4 % (10-50); Mean Corpuscular Hemoglobin 28.5 pg (27.0-31.2); Mean Corpuscular Volume 89.1 fl (81-99); Mean Platelet Volume 7.8 fl (7.4-10.4); Monocytes # 0.4 K/mm3 (0.1-1.0); Monocytes % 5.2 % (1.7-9.3); Neutrophils # 3.8 K/mm3 (1.8-7.8); Platelet Count 295 K/mm3 (142-424); Red Blood Count 3.21 M/mm3 (4.20-5.40); Red Cell Distribution Width 16.5 % (11.5-17.5); White Blood Count 6.7 K/mm3 (4.8-10.8)
[2023-07-29 02:22] LABS: Lactic Acid 0.9 mmol/L (0.7-2.1)
[2023-07-29 02:26] LABS: Microscopic, Urine URINE MICROSCOPIC (MICROSCOPIC)
[2023-07-29 02:26] LABS: Alanine Aminotransferase 15 U/L (12-78); Albumin Level 3.2 g/dl (3.5-5.0); Alkaline Phosphatase 99 U/L (38-126); Anion Gap 12.4 mEq/L (5-15); Aspartate Amino Transferase 19 U/L (14-36); Bilirubin,Total 0.3 mg/dl (0.2-1.3); Blood Urea Nitrogen 31 mg/dl (7-17); Calcium 8.5 mg/dl (8.4-10.2); Carbon Dioxide 17 mmol/L (22.0-30.0); Chloride 113 mmol/L (98-107); Creatinine Clearance Estimated 64 mL/min (50-200); Estimated Glomerular Filt Rate 33 ml/min (>60); GFR (African American) 39 ML/MIN (>60); Globulin 3.1 g/dL (1.3-3.2); Glucose 164 mg/dl (74-100); Potassium 5.4 mmoL/L (3.5-5.1); Sodium 137 mmol/L (136-145); Total Protein,Serum 6.3 g/dl (6.3-8.2)
[2023-07-29 02:28] LABS: Bilirubin,Urine Negative (Negative); Blood, Urine 2+ (Negative); Color,Urine YELLOW (Yellow); Glucose,Urine (UA) Negative (Negative); Ketones,Urine Negative (Negative); Leukocyte Esterase,Urine 2+ (Negative); Nitrate,Urine POSITIVE (Negative); Protein,Urine 3+ (Negative); Specific Gravity, Urine 1.025 (1.005-1.030); Urobilinogen,Urine 0.2 EU/dl (0.2)
[2023-07-29 02:29] LABS: Appearance,Urine Cloudy (Clear)
--- NOTE | 2023-07-29 02:34 | PC.NURSE ---
Placed purewick per patient request for patient comfort.
[2023-07-29 02:39] LABS: Bacteria,Urine 1+ /lpf; WBC,Urine 20-50 #/hpf (0-3)
[2023-07-29] MEDS: ERTAPENEM SODIUM 1 GM in 0.9 % SODIUM CHLORIDE 50 ML IV ×2 (02:52→04:51)
--- NOTE | 2023-07-29 03:10 | PC.NURSE ---
on phone with hospitalist
[2023-07-29] MEDS: ONDANSETRON 4MG/2ML VIAL 4 MG IV (03:17)
[2023-07-29] MEDS: LACTATED RINGERS 1000ML 1,000 ML 999 ML IV (03:17)
--- NOTE | 2023-07-29 03:20 | PC.NURSE ---
notified warehouse receiving supervisor of admission
--- NOTE | 2023-07-29 03:25 | P.HP_ITS ---
History of Present Illness *Admission Date: 07/29/23 *Reason for visit:: right flank pain *History of present illness: This is a 63-year-old female PMHx of hypertension, hyperlipidemia, CAD status post three-vessel, type 2 diabetes with diabetic foot ulcer on the right lower extremity, CKD recently required emergency dialysis, medical deconditioning, sedentary lifestyle presenting with dysuria and nauseas. Patient states that she has been having dysuria on and off for the last 2 weeks. Patient also has history of ESBL E. coli, that is resistant to multiples drugs she has been on and off antibiotics since her last visit here in June. Has been on antibiotics for about 3 to 4 weeks at this point, per her and family. Currently taking Bactrim, which she started today. She has had associated diarrhea for the past couple of months which seems like it is getting worse. He states that his dark green, malodorous. Patient having lower pelvic/genitourinary pain when urinating that radiates to her right flank. Denies fevers, chills, hematuria, vomiting, epigastric pain, inability to tolerate p.o. intake, or any other concerns. Admitted for treatment and management. [facility] Disclaimer: The information contained in this section may have been updated after the patient was seen, as this information can be updated by other users. Medical History (Updated 07/29/23 @ 06:23 by Jett Owens APRN) Coronary artery disease Diabetes Diastolic congestive heart failure Elevated HDL HTN (hypertension) Hyperlipidemia Hypertension Hypothyroid Open wound of right foot Surgical History S/P CABG x 3 Family History Brother Hypertension Mother Hypertension Father Hypertension Mother Hypothyroid Sister Hypothyroid Father COPD (chronic obstructive pulmonary disease) Father Lung cancer Social History Smoking Status: Never smoker years smoked: 2 alcohol intake: never substance use type: denies use current occupational status: unemployed Travel in the last 8 weeks: None adopted: No caregiver/support person: Yes ([employer]) foster care: No household members: none housing: house lives independently: Yes marital status: single number of children: 0 number of grandchildren: 0 education level: high school service: No retirement: No current occupational exposures/hazards: No pets and animals: No leisure activities: other sexually active: No diet: diabetic well-balanced diet: about half the time caffeine: No physical activity: walking frequency: 1-2 times per week Review of Systems Review of Systems Review of systems:: pertinent systems reviewed and negative unless documented below Meds Home Medications and Allergies Home Medications Medication Instructions Recorded Confirmed Type atorvastatin 40 mg tablet 40 mg PO HS Cholesterol 07/25/22 07/29/23 History levothyroxine 75 mcg tablet 75 mcg PO DAILY Thyroid 07/25/22 07/29/23 History aspirin 81 mg tablet,delayed 81 mg PO DAILY #30 tabs 08/04/22 07/29/23 Rx release nystatin 100,000 unit/gram topical 1 applic topical TID #30 grams 06/03/23 07/29/23 Rx ointment colestipol 1 gram tablet 1 g PO BID 07/29/23 07/29/23 History dicyclomine 10 mg capsule 10 mg PO QID 07/29/23 07/29/23 History metoprolol tartrate 50 mg tablet 50 mg PO BID High Blood Pressure 07/29/23 07/29/23 History sulfamethoxazole 800 1 tab PO BID Infection 07/29/23 07/29/23 History mg-trimethoprim 160 mg tablet New Prescriptions to Start Prescriptions: Allergies Allergy/AdvReac Type Severity Reaction Status Date / Time No Known Allergies Allergy Verified 08/14/22 14:16 Exam Data for Last 24 hours Vital signs and Labs for Last 24 Hours: Temp Pulse Resp BP Pulse Ox O2 Del Method 98.0 F 74 17 160/80 H 97 Room Air 07/29/23 02:01 07/29/23 02:01 07/29/23 02:01 07/29/23 02:01 07/29/23 02:01 07/29/23 02:01 Laboratory Results - last 24 hr 07/29/23 02:07: WBC 6.7, RBC 3.21 L, Hgb 9.2 L, Hct 28.6 L, MCV 89.1, MCH 28.5, MCHC 32.0, RDW 16.5, Plt Count 295, MPV 7.8, Neut % (Auto) 57.0, Lymph % (Auto) 26.4, [place] % (Auto) 5.2, Eos % (Auto) 10.8, Baso % (Auto) 0.6, Neut # (Auto) 3.8, Lymph # (Auto) 1.8, [place] # (Auto) 0.4, Eos # (Auto) 0.7 H, Baso # (Auto) 0.0, Sodium 137, Potassium 5.4 H, Chloride 113 H, Carbon Dioxide 17 L, Anion Gap 12.4, BUN 31 H, Creatinine 1.60 H, Estimated Creat Clear 64, Estimated GFR 33 L, Est GFR ( Amer) 39 L, Glucose 164 H, Lactate 0.9, Calcium 8.5, Total Bilirubin 0.3, AST 19, ALT 15, Alkaline Phosphatase 99, Total Protein 6.3, Albumin 3.2 L, Globulin 3.1, Albumin/Globulin Ratio 1.0 L 07/29/23 02:23: Urine Color Yellow, Urine Appearance Cloudy, Urine pH 6.0, Ur Specific [place] 1.025, Urine Protein 3+, Urine Glucose (UA) Negative, Urine Ketones Negative, Urine Blood 2+, Urine Nitrate Positive, Urine Bilirubin Negative, Urine Urobilinogen 0.2, Ur Leukocyte Esterase 2+ A, Urine RBC 10-20, Urine WBC 20-50, Ur Squamous Epith Cells 3-5, Urine Bacteria 1+ I & O for Last 24 hours: Intake & Output 07/26/23 07/27/23 07/28/23 07/29/23 23:59 23:59 23:59 23:59 Weight 113.398 kg *Routine HEENT Exam Head: Present normocephalic and atraumatic Eye: Present EOMI, PERRL and normal accommodation ENT: Present mucous membranes moist *Routine Respiratory Exam Respiratory: Present CTA bilaterally, normal respiratory effort and symmetric chest movement *Routine Cardiovascular Exam Cardiovascular: Present RRR, Normal S1 and Normal S2 *Routine Abdominal Exam Abdominal: Present soft, normoactive bowel sounds and tenderness *Routine Rectal Exam Rectal:: deferred *Routine Genitalia Exam Genitalia:: deferred Assessment and Plan *Assessment and plan (1) UTI (urinary tract infection): Status: Acute Qualifiers: Urinary tract infection type: acute pyelonephritis Qualified Code(s): N10 - Acute pyelonephritis Category: Medical Code(s): N39.0 - Urinary tract infection, site not specified (2) History of ESBL E. coli infection: Status: Acute Category: Medical Code(s): Z86.19 - Personal history of other infectious and parasitic diseases (3) Diarrhea in adult patient: Status: Acute Category: Medical Code(s): R19.7 - Diarrhea, unspecified (4) Hyperkalemia: Status: Acute Category: Medical Code(s): E87.5 - Hyperkalemia (5) CKD (chronic kidney disease): Status: Acute Qualifiers: Chronic kidney disease stage: stage 3 (moderate) Chronic kidney disease stage 3 subtype: stage 3b (GFR 30-44) Qualified Code(s): N18.32 - Chronic kidney disease, stage 3b Category: Medical Code(s): N18.9 - Chronic kidney disease, unspecified (6) Anemia of renal disease: Status: Acute Category: Medical Code(s): N18.9 - Chronic kidney disease, unspecified; D63.1 - Anemia in chronic kidney disease (7) Diastolic congestive heart failure: Status: Acute Qualifiers: Heart failure chronicity: acute Qualified Code(s): I50.31 - Acute diastolic (congestive) heart failure Category: Medical Code(s): I50.30 - Unspecified diastolic (congestive) heart failure (8) S/P CABG x 3: Status: Acute Category: Surgical Code(s): Z95.1 - Presence of aortocoronary bypass graft (9) Hyperlipidemia: Status: Acute Qualifiers: Hyperlipidemia type: mixed hyperlipidemia Qualified Code(s): E78.2 - Mixed hyperlipidemia Category: Medical Code(s): E78.5 - Hyperlipidemia, unspecified (10) Hypertension: Status: Acute Qualifiers: Hypertension type: primary hypertension Qualified Code(s): I10 - Essential (primary) hypertension Category: Medical Code(s): I10 - Essential (primary) hypertension (11) Hypothyroidism: Status: Acute Qualifiers: Hypothyroidism type: unspecified Qualified Code(s): E03.9 - Hypo thyroidism, unspecified Category: Medical Code(s): E03.9 - Hypothyroidism, unspecified (12) Diabetes: Status: Chronic Qualifiers: Diabetes mellitus complication detail: with foot ulcer Diabetes mellitus complication status: with skin complications Diabetes mellitus correction insulin use: without correction use Diabetes mellitus type: type 2 Qualified Code(s): E11.621 - Type 2 diabetes mellitus with foot ulcer; L97.509 - Non-pressure chronic ulcer of other part of unspecified foot with unspecified severity Category: Medical Code(s): E11.9 - Type 2 diabetes mellitus without complications (13) Diabetic ulcer of right foot: Status: Acute Qualifiers: Diabetes mellitus type: type 2 Diabetic foot ulcer location: heel Non- pressure ulcer stage: with necrosis of bone Qualified Code(s): E11.621 - Type 2 diabetes mellitus with foot ulcer; L97.414 - Non-pressure chronic ulcer of right heel and midfoot with necrosis of bone Category: Medical Code(s): E11.621 - Type 2 diabetes mellitus with foot ulcer; L97.519 - Non-pressure chronic ulcer of other part of right foot with unspecified severity (14) Class 1 obesity due to excess calories with body mass index (BMI) of 30.0 to 30.9 in adult: Status: Chronic Qualifiers: Serious obesity comorbidity presence: with serious comorbidity Qualified Code(s): E66.09 - Other obesity due to excess calories; Z68.30 - Body mass index [BMI] 30.0-30.9, adult Category: Medical Code(s): E66.09 - Other obesity due to excess calories; Z68.30 - Body mass index [BMI] 30.0-30.9, adult Plan 63-year-old female PMHx of hypertension, hyperlipidemia, CAD status post three- vessel, type 2 diabetes with diabetic foot ulcer on the right lower extremity, CKD recently required emergency dialysis, medical deconditioning, sedentary lifestyle presenting with dysuria and nauseas. On arrival UA was collected. concerning for UTI. Labs are grossly umremarkable. renal function stable. patient started on ertapenem. Discussed with ER for admission. plan as follow: -Susoected UTi, presented with right flank pain and nauseas with Hx of ESBL, multidrug resistant. Diarrhea presumed infectious vs secondary to correction antibiotic to rule out Cdiff admit patient. Dispo med-surg UA pending. previous culture showed almost resistant to any oral or outpatient treatment. patient has no ability to return to the emergency department or to infusion center for ertapenem infusions over the next couple of days. S usceptibilities demonstrate Macrobid sensitivity, but given poor renal penetration, this is deemed inappropriate outpatient management. monitor for sepsis Contact precaution Cdiff diarrhea panel ordered. result pending start oral probiotic -CKD with slighlty hyperkalemia associated anemia: condition stable. patient has had emergency dialysis recently\ Continue IV hydration. monitor CMP daily . watch for electrolytes imbalances monitor daily CBC. - Others chronic conditions CHF, CAD, s/p CABG, HTN, HLD, Hypothyroidism conditions reviewed. currently stable. reconcile and resume home medication on aspirin and statin on synthroid -Diabetes with right foot ulcer: wound dressing clean dry and intact. been managed with Santyl will obtain A1c sliding scale. hold metformin accucheck before meals diabetic diet - obesity with comorbidities: will complicated aspect of care lovenox for DVT ppx. On protonix Full code plan for continuing Ertapenem, await Urine cultures Attending attestation Patient was seen and evaluated at the bedside myself, agree with [facility]ARA note.
--- NOTE | 2023-07-29 03:25 | PC.NURSE ---
PT ADMITTED TO 210 FOR PYELONEPHRITIS AND UTI; OBSERVATION STATUS.
--- NOTE | 2023-07-29 03:52 | PC.NURSE ---
patient arrived to floor via wheelchair @03:40
--- NOTE | 2023-07-29 04:00 | PC.NURSE ---
Patient arrived to unit from ED via w/c at 0340. Patient is alert and orient X4. Oil Program Compliance Specialist oriented patient to room, educated patient production controller light, bed controller and TV remote with a voice of understanding. Family present at bedside. Patient very pleasant and cooperative with staff. Patient noted with a dressing to Right Heel. Oil Program Compliance Specialist spoke to patient and family in r/t Diabetic Ulcer to Right Heel, Patient voiced to senior technical writer that she only wants her family to change the dressing. Patient is followed via wound clinic. Treatment orders previously in place with improvement voiced via patient and family. Full assessment to follow.
[2023-07-29] MEDS: 0.9 % SODIUM CHLORIDE 1000ML 1,000 ML 75 ML IV ×2 (04:51→18:05)
[2023-07-29 06:50] LABS: Basophils % 0.4 % (0.1-2.0); Eosinophils # 0.6 K/mm3 (0.0-0.4); Eosinophils % 8.7 % (0.1-12.0); Hemoglobin 8.8 g/dL (12.2-16.2); Lymphocytes # 1.5 K/mm3 (0.7-4.5); Lymphocytes % 23.3 % (10-50); Mean Corpuscular HGB Conc 32.6 g/dL (31.8-35.4); Mean Corpuscular Hemoglobin 28.9 pg (27.0-31.2); Mean Corpuscular Volume 88.7 fl (81-99); Mean Platelet Volume 7.8 fl (7.4-10.4); Monocytes # 0.3 K/mm3 (0.1-1.0); Neutrophils # 4.1 K/mm3 (1.8-7.8); Neutrophils % 62.6 % (37.0-80.0); Platelet Count 254 K/mm3 (142-424); Red Blood Count 3.04 M/mm3 (4.20-5.40); Red Cell Distribution Width 16.4 % (11.5-17.5); White Blood Count 6.5 K/mm3 (4.8-10.8)
[2023-07-29 06:55] LABS: Chloride 113 mmol/L (98-107); Potassium 5.6 mmoL/L (3.5-5.1); Sodium 137 mmol/L (136-145)
[2023-07-29 06:57] LABS: Blood Urea Nitrogen 30 mg/dl (7-17)
[2023-07-29 06:58] LABS: Alanine Aminotransferase 14 U/L (12-78); Albumin Level 3.1 g/dl (3.5-5.0); Alkaline Phosphatase 99 U/L (38-126); Anion Gap 10.6 mEq/L (5-15); Aspartate Amino Transferase 18 U/L (14-36); Bilirubin,Total 0.2 mg/dl (0.2-1.3); Calcium 8.3 mg/dl (8.4-10.2); Carbon Dioxide 19 mmol/L (22.0-30.0); Creatinine Clearance Estimated 53 mL/min (50-200); Estimated Glomerular Filt Rate 30 ml/min (>60); GFR (African American) 37 ML/MIN (>60); Globulin 3.1 g/dL (1.3-3.2); Glucose 166 mg/dl (74-100); Total Protein,Serum 6.2 g/dl (6.3-8.2)
[2023-07-29 06:59] LABS: Magnesium 1.6 mg/dl (1.6-2.3)
[2023-07-29] MEDS: LEVOTHYROXINE 75MCG (0.075MG) TAB 75 MCG PO (06:59)
--- NOTE | 2023-07-29 07:55 | HMH.PHAINT1 ---
Pharmacy Intervention Comments: MEDICATION RECONCILIATION COMPLETED ON PATIENT USING EXTERNAL FILL HISTORY FROM PHARMACY. -CHIP GÓMEZ, WILLIAMD
--- NOTE | 2023-07-29 08:00 | PC.NURSE ---
Patient states she wants her family to change the dressing on her right foot as they have dressing change orders and supplies from outpatient clinic. Per patient dressing change is due 07/30/23
[2023-07-29] MEDS: PANTOPRAZOLE 40MG TABLET 40 MG PO (08:56)
[2023-07-29] MEDS: ENOXAPARIN 40MG/0.4ML SYRINGE 40 MG SQ (08:56)
[2023-07-29] MEDS: LACTOBACILLUS PROBIOTIC COMB CAPSULE 1 CAP PO (08:56)
[2023-07-29] MEDS: METOPROLOL TARTRATE 50MG TABLET 50 MG PO ×2 (10:13→20:39)
[2023-07-29] MEDS: LOKELMA 5GM PACKET 10 GM PO (11:27)
[2023-07-29 11:36] LABS: POC Glucose,Bedside 134 (70-110)
--- NOTE | 2023-07-29 14:47 | SW/DCPLANNER ---
Addendum entered by [facility] 08/04/23 10:19: Patient will discharge to [facility] today. Addendum entered by [facility] 08/03/23 13:55: Per Kristin [facility] this patient has been approved for admission tomorrow. Accepting MD is Dr Urbano report phone number [phone] fax number for discharge [phone] Krisitn mckeon/ [facility] [phone] Addendum entered by [facility] 08/03/23 08:42: Per Deyanira [facility] patient referral was worked up by their staff over the weekend and received MD approval. Precert was started for acute care rehab: pending at this time. All updated patient information has been faxed to Deyanira/Kristin mckeon/ [facility]. I will continue to update our patient/MD. Addendum entered by [facility] 07/31/23 16:25: PT/OT evaluated patient and recommended SNF level of care. I spoke w/ patient regarding different discharge options: LTC under [facility] vs [facility] vs home w/ family. Patient stated that she will need to speak w/ family prior to making any decisions. Patient voiced that she can not go [facility] at LT due to financially. I explained to patient that if family is unable to take care of her at home she will need to consider placement. I also discussed [facility] w/ patient and she is open to this option. Patient information will be faxed to [facility] today. I have recommended that patient have conversations w/ her family today regarding discharge plans including: care at home vs financial assistance vs [place]. I will continue to follow up w/ this patient. Addendum entered by Manisha Anthony RN 07/31/23 15:53: Sister called with concerns regarding patient being discharged home. She states she thinks the patient needs rehab. Spoke with patient who could be agreeable depending on where she goes and if she has to give up her check. PT/OT to [facility]. Original Note: I spoke w/ this patient regarding plans once medically stable for discharge. Patient expressed an interest in home health services and stated that she has been trying to get services for awhile. I did inform patient that at this time there are no home health agencies that accept her insurance. Patient voiced that she understood. Patient plans to return home w/ her brother at time of discharge. I will continue to follow up w/ this patient. Discharge date is unknown at this time.
[2023-07-29 16:54] LABS: POC Glucose,Bedside 135 (70-110)
--- NOTE | 2023-07-29 17:20 | PC.NURSE ---
Patient alert and oriented. VSS. On room air. Denies pain. Voiding via purewick with adequate output. Patient encouraged to change position frequently which she is able to do independently. IV fluids and antibiotics administered per orders.
[2023-07-29] MEDS: ATORVASTATIN 40MG TABLET 40 MG PO (20:39)
[2023-07-29 21:12] LABS: POC Glucose,Bedside 198 (70-110)
[2023-07-29] MEDS: humaLOG 100 UNITS/ML 3ML VIAL (SSI) SQ (21:51)
[2023-07-30 04:00] VITALS: BP 123/70; PULSE 66; RESP 16; TEMP 36.6; O2SAT 96; BMI 33.2
--- NOTE | 2023-07-30 04:07 | PC.NURSE ---
Pt is alert and priented x4, and currently tolerating RA well. Pt Pt denies any pain and is tolerating IV fluids well. Pt required 2 units of insulin at HS. Pt is pleasant and has no other complaints thus far.
[2023-07-30 06:15] LABS: POC Glucose,Bedside 130 (70-110)
[2023-07-30] MEDS: LEVOTHYROXINE 75MCG (0.075MG) TAB 75 MCG PO (06:28)
[2023-07-30 06:40] LABS: Chloride 115 mmol/L (98-107); Potassium 5.3 mmoL/L (3.5-5.1); Sodium 136 mmol/L (136-145)
[2023-07-30 06:43] LABS: Alanine Aminotransferase 11 U/L (12-78); Albumin Level 2.8 g/dl (3.5-5.0); Albumin/Globulin Ratio 0.9 (1.1-1.8); Alkaline Phosphatase 87 U/L (38-126); Anion Gap 5.3 mEq/L (5-15); Aspartate Amino Transferase 15 U/L (14-36); Blood Urea Nitrogen 28 mg/dl (7-17); Calcium 7.8 mg/dl (8.4-10.2); Carbon Dioxide 21 mmol/L (22.0-30.0); Creatinine Clearance Estimated 48 mL/min (50-200); Estimated Glomerular Filt Rate 27 ml/min (>60); GFR (African American) 32 ML/MIN (>60); Globulin 3.1 g/dL (1.3-3.2); Glucose 119 mg/dl (74-100); Total Protein,Serum 5.9 g/dl (6.3-8.2)
[2023-07-30 06:44] LABS: Bilirubin,Total 0.1 mg/dl (0.2-1.3)
[2023-07-30] MEDS: 0.9 % SODIUM CHLORIDE 1000ML 1,000 ML 75 ML IV (06:45)
[2023-07-30 07:03] LABS: Basophils # 0.1 K/mm3 (0-0.2); Basophils % 1.1 % (0.1-2.0); Eosinophils # 0.5 K/mm3 (0.0-0.4); Eosinophils % 11.2 % (0.1-12.0); Hematocrit 27.4 % (37.0-47.0); Hemoglobin 8.7 g/dL (12.2-16.2); Lymphocytes # 1.5 K/mm3 (0.7-4.5); Lymphocytes % 32.4 % (10-50); Mean Corpuscular HGB Conc 31.7 g/dL (31.8-35.4); Mean Corpuscular Hemoglobin 28.8 pg (27.0-31.2); Mean Corpuscular Volume 90.8 fl (81-99); Monocytes # 0.3 K/mm3 (0.1-1.0); Monocytes % 5.7 % (1.7-9.3); Neutrophils # 2.3 K/mm3 (1.8-7.8); Neutrophils % 49.7 % (37.0-80.0); Platelet Count 232 K/mm3 (142-424); Red Blood Count 3.01 M/mm3 (4.20-5.40); Red Cell Distribution Width 16.2 % (11.5-17.5); White Blood Count 4.6 K/mm3 (4.8-10.8)
[2023-07-30 08:00] VITALS: BP 140/70; PULSE 67; RESP 20; TEMP 36.6; O2SAT 98
[2023-07-30] MEDS: LACTOBACILLUS PROBIOTIC COMB CAPSULE 1 CAP PO (08:38)
[2023-07-30] MEDS: METOPROLOL TARTRATE 50MG TABLET 50 MG PO ×2 (08:38→20:35)
[2023-07-30] MEDS: ENOXAPARIN 40MG/0.4ML SYRINGE 40 MG SQ (08:39)
[2023-07-30] MEDS: ERTAPENEM SODIUM 1 GM in 0.9 % SODIUM CHLORIDE 50 ML IV (08:53)
[2023-07-30] MEDS: PANTOPRAZOLE 40MG TABLET 40 MG PO (08:55)
[2023-07-30 11:37] LABS: POC Glucose,Bedside 159 (70-110)
[2023-07-30] MEDS: humaLOG 100 UNITS/ML 3ML VIAL (SSI) SQ ×3 (11:49→20:34)
--- NOTE | 2023-07-30 14:44 | P.PN_ITS ---
Subjective *Date: 07/30/23 *Time: 14:57 Interval history: patient was seen and evaluated at the bedside. No reported acute events overnight, denies chest pain, shortness of breath, nausea, vomiting, abdominal pain. Exam Data for Last 24 hours Vital signs and Labs for Last 24 Hours: Temp Pulse Resp BP Pulse Ox O2 Del Method 97.9 F 67 20 140/70 98 Room Air 07/30/23 08:00 07/30/23 08:00 07/30/23 08:00 07/30/23 08:00 07/30/23 08:00 07/30/23 13:00 Laboratory Results - last 24 hr 07/29/23 16:42: POC Glucose 135 H 07/29/23 20:37: POC Glucose 198 H 07/30/23 05:46: WBC 4.6 L D, RBC 3.01 L, Hgb 8.7 L, Hct 27.4 L, MCV 90.8, MCH 28.8, MCHC 31.7 L, RDW 16.2, Plt Count 232, MPV 7.0 L, Neut % (Auto) 49.7, Lymph % (Auto) 32.4, [place] % (Auto) 5.7, Eos % (Auto) 11.2, Baso % (Auto) 1.1, Neut # (Auto) 2.3, Lymph # (Auto) 1.5, [place] # (Auto) 0.3, Eos # (Auto) 0.5 H, Baso # (Auto) 0.1, Sodium 136, Potassium 5.3 H, Chloride 115 H, Carbon Dioxide 21 L, Anion Gap 5.3, BUN 28 H, Creatinine 1.90 H, Estimated Creat Clear 48, Estimated GFR 27 L, Est GFR ( Amer) 32 L, Glucose 119 H, Calcium 7.8 L, Total Bilirubin 0.1 L, AST 15, ALT 11 L, Alkaline Phosphatase 87, Total Protein 5.9 L, Albumin 2.8 L, Globulin 3.1, Albumin/Globulin Ratio 0.9 L 07/30/23 05:57: POC Glucose 130 H 07/30/23 11:26: POC Glucose 159 H I & O for Last 24 hours: Intake & Output 07/27/23 07/28/23 07/29/23 07/30/23 23:59 23:59 23:59 23:59 Intake Total 2456 / 3071 2360 / 2360 Output Total 575 / 575 550 / 550 Balance 1881 / 2496 1810 / 1810 Weight 99.45 kg 99.48 kg Constitutional Constitutional: no acute distress *Routine HEENT Exam Head: Present normocephalic Eye: Present EOMI and PERRL ENT: Present mucous membranes moist *Routine Neck Exam Neck: Present supple; Absent lymphadenopathy *Routine Respiratory Exam Respiratory: Present CTA bilaterally *Routine Cardiovascular Exam Cardiovascular: Present RRR *Routine Abdominal Exam Abdominal: Present soft and normoactive bowel sounds; Absent tenderness *Routine Extremities Exam Extremities: Absent cyanosis, clubbing or edema *Routine Skin Exam Skin: Present warm; Absent rash *Routine Neurological Exam Neurological: Present alert and oriented X3 Assessment and Plan *Assessment and plan (1) UTI (urinary tract infection): Status: Acute Qualifiers: Urinary tract infection type: acute pyelonephritis Qualified Code(s): N10 - Acute pyelonephritis Category: Medical Code(s): N39.0 - Urinary tract infection, site not specified (2) History of ESBL E. coli infection: Status: Acute Category: Medical Code(s): Z86.19 - Personal history of other infectious and parasitic diseases (3) Diarrhea in adult patient: Status: Acute Category: Medical Code(s): R19.7 - Diarrhea, unspecified (4) Hyperkalemia: Status: Acute Category: Medical Code(s): E87.5 - Hyperkalemia (5) CKD (chronic kidney disease): Status: Acute Qualifiers: Chronic kidney disease stage: stage 3 (moderate) Chronic kidney disease stage 3 subtype: stage 3b (GFR 30-44) Qualified Code(s): N18.32 - Chronic kidney disease, stage 3b Category: Medical Code(s): N18.9 - Chronic kidney disease, unspecified (6) Anemia of renal disease: Status: Acute Category: Medical Code(s): N18.9 - Chronic kidney disease, unspecified; D63.1 - Anemia in chronic kidney disease (7) Diastolic congestive heart failure: Status: Acute Qualifiers: Heart failure chronicity: acute Qualified Code(s): I50.31 - Acute diastolic (congestive) heart failure Category: Medical Code(s): I50.30 - Unspecified diastolic (congestive) heart failure (8) S/P CABG x 3: Status: Acute Category: Surgical Code(s): Z95.1 - Presence of aortocoronary bypass graft (9) Hyperlipidemia: Status: Acute Qualifiers: Hyperlipidemia type: mixed hyperlipidemia Qualified Code(s): E78.2 - Mixed hyperlipidemia Category: Medical Code(s): E78.5 - Hyperlipidemia, unspecified (10) Hypertension: Status: Acute Qualifiers: Hypertension type: primary hypertension Qualified Code(s): I10 - Essential (primary) hypertension Category: Medical Code(s): I10 - Essential (primary) hypertension (11) Hypothyroidism: Status: Acute Qualifiers: Hypothyroidism type: unspecified Qualified Code(s): E03.9 - Hypothyroidism, unspecified Category: Medical Code(s): E03.9 - Hypothyroidism, unspecified (12) Diabetes: Status: Chronic Qualifiers: Diabetes mellitus complication detail: with foot ulcer Diabetes mellitus complication status: with skin complications Diabetes mellitus intermediate school teacher insulin use: without mcc use Diabetes mellitus type: type 2 Qualified Code(s): E11.621 - Type 2 diabetes mellitus with foot ulcer; L97.509 - Non-pressure chronic ulcer of other part of unspecified foot with unspecified severity Category: Medical Code(s): E11.9 - Type 2 diabetes mellitus without complications (13) Diabetic ulcer of right foot: Status: Acute Qualifiers: Diabetes mellitus type: type 2 Diabetic foot ulcer location: heel Non- pressure ulcer stage: with necrosis of bone Qualified Code(s): E11.621 - Type 2 diabetes mellitus with foot ulcer; L97.414 - Non-pressure chronic ulcer of right heel and midfoot with necrosis of bone Category: Medical Code(s): E11.621 - Type 2 diabetes mellitus with foot ulcer; L97.519 - Non-pressure chronic ulcer of other part of right foot with unspecified severity (14) Class 1 obesity due to excess calories with body mass index (BMI) of 30.0 to 30.9 in adult: Status: Chronic Qualifiers: Serious obesity comorbidity presence: with serious comorbidity Qualified Code(s): E66.09 - Other obesity due to excess calories; Z68.30 - Body mass index [BMI] 30.0-30.9, adult Category: Medical Code(s): E66.09 - Other obesity due to excess calories; Z68.30 - Body mass index [BMI] 30.0-30.9, adult Plan 63-year-old female PMHx of hypertension, hyperlipidemia, CAD status post three- vessel, type 2 diabetes with diabetic foot ulcer on the right lower extremity, CKD recently required emergency dialysis, medical deconditioning, sedentary lifestyle presenting with dysuria and nauseas. On arrival UA was collected. concerning for UTI. Labs are grossly umremarkable. renal function stable. patient started on ertapenem. Discussed with ER for admission. plan as follow: -UTI, presented with right flank pain and nauseas with Hx of ESBL, multidrug resistant. - continue Ertapenem - Urine Culture - pending -CKD - stable Associated anemia: stable, monitor CBC - Others chronic conditions CHF, CAD, s/p CABG, HTN, HLD, Hypothyroidism conditions reviewed. currently stable. reconcile and resume home medication on aspirin and statin on synthroid -Diabetes with right foot ulcer: wound dressing clean dry and intact. been managed with Santyl diabetic diet - obesity with comorbidities: will complicated aspect of care lovenox for DVT ppx. On protonix Full code contineu IV ertapenem for 3 days, symptoms have improved, DC likely 1-2 days
[2023-07-30 15:15] VITALS: BP 149/71; PULSE 74; RESP 22; TEMP 36.3; O2SAT 99
[2023-07-30 16:34] LABS: POC Glucose,Bedside 192 (70-110)
--- NOTE | 2023-07-30 17:51 | PC.NURSE ---
Pt alert and oriented. VSS. On room air. Denies pain. Dressing changed by brother today per patient's request. Picture taken while dressing off. Urine output adequate via purewick with one episode of incontinence. Patient has been encouraged to change position frequently to decrease pressure points. Antibiotics administered per orders. Possible discharge home to brother's house tomorrow.
[2023-07-30 20:00] VITALS: BP 139/75; PULSE 74; RESP 16; TEMP 36.5; O2SAT 94
[2023-07-30 20:19] LABS: POC Glucose,Bedside 164 (70-110)
[2023-07-30] MEDS: ATORVASTATIN 40MG TABLET 40 MG PO (20:35)
[2023-07-31] MEDS: 0.9 % SODIUM CHLORIDE 1000ML 1,000 ML 75 ML IV ×2 (02:17→20:40)
[2023-07-31 04:00] VITALS: BP 153/72; PULSE 69; RESP 18; TEMP 36.4; O2SAT 96; BMI 34.6
[2023-07-31 05:19] LABS: POC Glucose,Bedside 151 (70-110)
[2023-07-31] MEDS: LEVOTHYROXINE 75MCG (0.075MG) TAB 75 MCG PO (06:04)
--- NOTE | 2023-07-31 07:55 | CT_ITS ---
FINAL REPORT TECHNIQUE: Axial images through the abdomen and pelvis were performed without contrast. This study was performed with techniques to keep radiation doses as low as reasonably achievable, (ALARA). Individualized dose reduction techniques using automated exposure control or adjustment of mA and/or kV according to the patient's size were employed. CLINICAL HISTORY: Abd pain, pyelonephritis FINDINGS: ABDOMEN: There are small bilateral effusions with associated lower lobe atelectasis. There is cardiomegaly. Bilateral lower lung ground-glass opacities are identified consistent with pulmonary edema. There is a hypodense lesion in the medial right liver measuring 2.4 cm, favor a cyst. Small stones are seen in the gallbladder. The spleen is normal. No adrenal mass is identified. The aorta is normal in caliber. There is no significant free fluid or adenopathy. There are bilateral nonobstructing renal stones. There is no hydronephrosis. PELVIS: The appendix is normal. There is a moderate amount of stool throughout the colon. The wall of the urinary bladder is thickened, may represent cystitis. The uterus is present. There is no evidence of adenopathy. There is a small amount of physiologic free fluid. IMPRESSION: Findings in the lung bases concerning for CHF. Bilateral nephrolithiasis. Wall of the urinary bladder is thickened concerning for cystitis. Reviewed, Interpreted and Dictated by Sarah Moreno MD Transcribed by Deedee Harrison Authenticated and [facility]
[2023-07-31 08:00] VITALS: BP 153/83; PULSE 74; RESP 18; TEMP 36.4; O2SAT 98
[2023-07-31] MEDS: ENOXAPARIN 40MG/0.4ML SYRINGE 40 MG SQ (09:50)
[2023-07-31] MEDS: PANTOPRAZOLE 40MG TABLET 40 MG PO (09:50)
[2023-07-31] MEDS: ERTAPENEM SODIUM 1 GM in 0.9 % SODIUM CHLORIDE 50 ML IV (09:50)
[2023-07-31] MEDS: METOPROLOL TARTRATE 50MG TABLET 50 MG PO ×2 (09:50→20:39)
[2023-07-31] MEDS: LACTOBACILLUS PROBIOTIC COMB CAPSULE 1 CAP PO (09:50)
[2023-07-31] MEDS: LACTULOSE 20GM/30ML UDC 10 GM PO (10:23)
[2023-07-31 10:34] LABS: POC Glucose,Bedside 165 (70-110)
[2023-07-31] MEDS: humaLOG 100 UNITS/ML 3ML VIAL (SSI) SQ (10:51)
[2023-07-31 14:02] VITALS: BMI 34.6
[2023-07-31 15:25] VITALS: BP 149/78; PULSE 75; RESP 18; TEMP 36.6; O2SAT 97
[2023-07-31 16:17] LABS: POC Glucose,Bedside 129 (70-110)
--- NOTE | 2023-07-31 16:23 | HMH.PTEV ---
Physical Therapy Evaluation Rehab PT IP Evaluation Start: 07/31/23 15:46 Freq: ONCE Status: Active Protocol: Document 07/31/23 16:16 PHOPadminiMAURISIO (Rec: 07/31/23 16:23 PHORNE [id number]) Subjective/History History History 63 yowf adm to [facility] with UTI, abdominal pain, nausea. She has PMH of HTN, HLD, CAD S/P CABG x 3v, DM, CKD. She reports she did live alone and was independent with all ADLs and mobility, but has been living with her brother for ~ 1 yr now since having R foot surgery due to DFU. She reports her brother lifts her into a w/c. and this is the limit of her mobility currently. Subjective Subjective Pt is poor historian. She has difficulty maintaining her NWB of the R LE independently. She fatigues easily with mobility assessmemt. New diagnosis of cancer in past 12 No months? Rehab PT IP Eval Objective Appearance Patient Behavior Appropriate Patient Orientation Person,Place,Time Difficulty following instructions none Speech Pattern Clear Ambulation Patient Able to Ambulate No Balance Ability to Arise Able, uses arms to help Sitting Balance Steady, safe Standing Balance Unsteady Dynamic Sitting Balance Ability Good Dynamic Standing Balance Ability Poor Transfers Bed Transfer Ability Minimal x 1 (25% assist) Sit to Stand Bed Transfer Ability Moderate x 2 (50% assist) Rehab PT IP prob,goals,plan Problems Date of Evaluation: 07/31/23 PT IP Problems Bed Mobility,Transfers Rehab Potential Rehab Potential Good Plan PT Intervention Plan Bed Mobility,Transfers, Therapeutic Exercise PT Plan Frequency Daily Duration LOS Discharge Goals Bed Transfer Ability Contact Guard/Hand Hold Sit to Stand Chair Transfer Ability Moderate x 1 (50% assist) Discharge Plan PT Discharge Plan Pt is currently most appropriate for short term rehab placement once medically stable for d/c. Skilled therapy is necessary to prevent further falls, wounds, injury, or debility. Eval Complexity Eval Charge Codes 18841 - High Complexity PHYSICIAN CERTIFICATION: I certify the specified therapy services for Nancy Slade are required, authorized, and reviewed every 30 days.
--- NOTE | 2023-07-31 16:23 | HMH.OTEV ---
OT Inpatient Evaluation Rehab OT IP Evaluation Start: 07/31/23 15:46 Freq: ONCE Status: Active Protocol: Document 07/31/23 16:17 SAIDA (Rec: 07/31/23 16:23 [facility] [id number]) Rehab OT IP Assessment Subjective History Pt oriented x 3 on arrival. Pt agreeable to engage in therapy evaluation. Pt admitted on 07/29/23 due to lower abdominal pain, pain with urination, and nausea. History and physical report: This is a 63-year-old female PMHx of hypertension, hyperlipidemia, CAD status post three-vessel, type 2 diabetes with diabetic foot ulcer on the right lower extremity, CKD recently required emergency dialysis, medical deconditioning, sedentary lifestyle presenting with dysuria and nauseas. Patient states that she has been having dysuria on and off for the last 2 weeks. Patient also has history of ESBL E. coli, that is resistant to multiples drugs she has been on and off antibiotics since her last visit here in June . Has been on antibiotics for about 3 to 4 weeks at this point, per her and family. Currently taking Bactrim, which she started today. She has had associated diarrhea for the past couple of months which seems like it is getting worse. He states that his dark green, malodorous. Patient having lower pelvic/ genitourinary pain when urinating that radiates to her right flank. Denies fevers, chills, hematuria, vomiting, epigastric pain, inability to tolerate p.o. intake, or any other concerns. Admitted for treatment and management. Subjective I know I will need help. Pt reports prior to being in the hospital, she was living with her brother. Pt claims to have been independent with ADLs such as dressing, bathing , and feeding. However, pt's family completes IADLs such as cleaning, cooking, etc. Pt has not been ambulating much and has been using wheelchair. Normally she has required assistance with transferring to and from her wheelchair. Objective Patient Orientation Person,Place,Birthday Right Upper Extremity Gross ROM Min Limitation <25% Left Upper Extremity Gross ROM Min Limitation <25% Shoulder ROM Limitations Muscle Weakness Elbow ROM Limitations Muscle Weakness Wrist Limitations of Range of Motion Muscle Weakness Bed Mobility bed mobility-scooting,bed mobility - supine/sit Assist Level Minimal x 1 (25% assist) Transfer Training Sit/Stand Transfer Assist Level Moderate x 2 (50% assist) Rehab OT IP prob,goals,plan Problems Date of Evaluation: 07/31/23 OT IP Problems Bed Mobility,Transfers,Balance ,Self care,Safety Rehab Potential Rehab Potential Good Equipment Needs Assistive Devices Rolling / Wheeled Walker, Wheelchair Plan OT intervention Plan Bed Mobility,Transfers,Balance ,Self care,Safety,Therapeutic Exercise OT Plan Frequency Daily Duration LOS Discharge Goals Bed Mobility Ability Assistance x1 Sit to Stand Chair Transfer Ability Moderate x 1 (50% assist) Chair Transfer Ability Moderate x 1 (50% assist) Chair Transfer Technique Stand Pivot Chair Transfer Assistive Devices Rolling Walker Feeding Ability Assist with Tray Set Up Lower Body Dressing Ability Moderate Assistance Upper Body Dressing Ability Contact Guard Bathing Ability Moderate Assistance Performing Toilet Hygiene Ability Moderate Assistance Overall Commode/Toilet Transfer Ability Moderate Assistance Commode/Toilet Transfer Technique Stand Pivot Commode/Toilet Transfer Assistive Raised Toilet Seat,Grab Bars Devices Oral Care Assist Standby Assistance Decrease in Endurance Yes Discharge Plan OT Discharge Plan Pt will continue to be seen for OT services while at [facility]. Pt would benefit most from short term rehab following hospital stay. Continued skilled therapy is important in order for patient to improve strength, safety, endurance, ADL independence, and functional transfers to reach PLOF. Eval Complexity Eval Charge Codes 60905 - Moderate Complexity PHYSICIAN CERTIFICATION: I certify the specified therapy services for Nancy Slade are required, authorized, and reviewed every 30 days.
--- NOTE | 2023-07-31 17:45 | EXP.PN ---
Subjective *Date: 07/31/23 *Time: 17:45 Interval history: patient was seen and evaluated at the bedside. complains of abdominal pain/R flank pain, No reported acute events overnight, denies chest pain, shortness of breath, nausea, vomiting, abdominal pain. Exam Data for Last 24 hours Vital signs and Labs for Last 24 Hours: Temp Pulse Resp BP Pulse Ox O2 Del Method 97.9 F 75 18 149/78 H 97 Room Air 07/31/23 15:25 07/31/23 15:25 07/31/23 15:25 07/31/23 15:25 07/31/23 15:25 07/31/23 17:06 Laboratory Results - last 24 hr 07/30/23 20:00: POC Glucose 164 H 07/31/23 05:10: POC Glucose 151 H 07/31/23 10:25: POC Glucose 165 H 07/31/23 16:10: POC Glucose 129 H I & O for Last 24 hours: Intake & Output 07/28/23 07/29/23 07/30/23 07/31/23 23:59 23:59 23:59 23:59 Intake Total 2456 / 3071 3600 / 4337 1792 / 1792 Output Total 575 / 575 950 / 950 650 / 650 Balance 1881 / 2496 2650 / 3387 1142 / 1142 Weight 99.45 kg 99.48 kg 103.6 kg Constitutional Constitutional: no acute distress *Routine HEENT Exam Head: Present normocephalic Eye: Present EOMI and PERRL ENT: Present mucous membranes moist *Routine Neck Exam Neck: Present supple; Absent lymphadenopathy *Routine Respiratory Exam Respiratory: Present CTA bilaterally *Routine Cardiovascular Exam Cardiovascular: Present RRR *Routine Abdominal Exam Abdominal: Present soft and normoactive bowel sounds; Absent tenderness *Routine Extremities Exam Extremities: Absent cyanosis, clubbing or edema *Routine Skin Exam Skin: Present warm; Absent rash *Routine Neurological Exam Neurological: Present alert and oriented X3 Assessment and Plan *Assessment and plan (1) UTI (urinary tract infection): Status: Acute Qualifiers: Urinary tract infection type: acute pyelonephritis Qualified Code(s): N10 - Acute pyelonephritis Category: Medical Code(s): N39.0 - Urinary tract infection, site not specified (2) History of ESBL E. coli infection: Status: Acute Category: Medical Code(s): Z86.19 - Personal history of other infectious and parasitic diseases (3) Diarrhea in adult patient: Status: Acute Category: Medical Code(s): R19.7 - Diarrhea, unspecified (4) Hyperkalemia: Status: Acute Category: Medical Code(s): E87.5 - Hyperkalemia (5) CKD (chronic kidney disease): Status: Acute Qualifiers: Chronic kidney disease stage: stage 3 (moderate) Chronic kidney disease stage 3 subtype: stage 3b (GFR 30-44) Qualified Code(s): N18.32 - Chronic kidney disease, stage 3b Category: Medical Code(s): N18.9 - Chronic kidney disease, unspecified (6) Anemia of renal disease: Status: Acute Category: Medical Code(s): N18.9 - Chronic kidney disease, unspecified; D63.1 - Anemia in chronic kidney disease (7) Diastolic congestive heart failure: Status: Acute Qualifiers: Heart failure chronicity: acute Qualified Code(s): I50.31 - Acute diastolic (congestive) heart failure Category: Medical Code(s): I50.30 - Unspecified diastolic (congestive) heart failure (8) S/P CABG x 3: Status: Acute Category: Surgical Code(s): Z95.1 - Presence of aortocoronary bypass graft (9) Hyperlipidemia: Status: Acute Qualifiers: Hyperlipidemia type: mixed hyperlipidemia Qualified Code(s): E78.2 - Mixed hyperlipidemia Category: Medical Code(s): E78.5 - Hyperlipidemia, unspecified (10) Hypertension: Status: Acute Qualifiers: Hypertension type: primary hypertension Qualified Code(s): I10 - Essential (primary) hypertension Category: Medical Code(s): I10 - Essential (primary) hypertension (11) Hypothyroidism: Status: Acute Qualifiers: Hypothyroidism type: unspecified Qualified Code(s): E03.9 - Hypothyroidism, unspecified Category: Medical Code(s): E03.9 - Hypothyroidism, unspecified (12) Diabetes: Status: Chronic Qualifiers: Diabetes mellitus type: type 2 Diabetes mellitus terminal computer operator insulin use: without terminal computer operator use Diabetes mellitus complication status: with skin complications Diabetes mellitus complication detail: with foot ulcer Qualified Code(s): E11.621 - Type 2 diabetes mellitus with foot ulcer; L97.509 - Non-pressure chronic ulcer of other part of unspecified foot with unspecified severity Category: Medical Code(s): E11.9 - Type 2 diabetes mellitus without complications (13) Diabetic ulcer of right foot: Status: Acute Qualifiers: Diabetic foot ulcer location: heel Diabetes mellitus type: type 2 Non-pressure ulcer stage: with necrosis of bone Qualified Code(s): E11.621 - Type 2 diabetes mellitus with foot ulcer; L97.414 - Non-pressure chronic ulcer of right heel and midfoot with necrosis of bone Category: Medical Code(s): E11.621 - Type 2 diabetes mellitus with foot ulcer; L97.519 - Non-pressure chronic ulcer of other part of right foot with unspecified severity (14) Class 1 obesity due to excess calories with body mass index (BMI) of 30.0 to 30.9 in adult: Status: Chronic Qualifiers: Serious obesity comorbidity presence: with serious comorbidity Qualified Code(s): E66.09 - Other obesity due to excess calories; Z68.30 - Body mass index [BMI] 30.0-30.9, adult Category: Medical Code(s): E66.09 - Other obesity due to excess calories; Z68.30 - Body mass index [BMI] 30.0-30.9, adult Plan 63-year-old female PMHx of hypertension, hyperlipidemia, CAD status post three-vessel, type 2 diabetes with diabetic foot ulcer on the right lower extremity, CKD recently required emergency dialysis, medical deconditioning, sedentary lifestyle presenting with dysuria and nauseas. On arrival UA was collected. concerning for UTI. Labs are grossly umremarkable. renal function stable. patient started on ertapenem. Discussed with ER for admission. plan as follow: -UTI, presented with right flank pain and nauseas with Hx of ESBL, multidrug resistant. - continue Ertapenem - Urine Culture - pending -CKD - stable Associated anemia: stable, monitor CBC - Others chronic conditions CHF, CAD, s/p CABG, HTN, HLD, Hypothyroidism conditions reviewed. currently stable. reconcile and resume home medication on aspirin and statin on synthroid -Diabetes with right foot ulcer: wound dressing clean dry and intact. been managed with Santyl diabetic diet - obesity with comorbidities: will complicated aspect of care lovenox for DVT ppx. On protonix Full code contineu IV ertapenem for 3 days, symptoms have improved, DC likely 1-2 days, CT abd pelvis - negative for pyelonephritis, have kidney stones, non obstructive, family denied to take patient home mentions they are not able to take care of her at home and wants to pursue NH placement
[2023-07-31 20:00] VITALS: BP 158/81; PULSE 78; RESP 16; TEMP 37.2; O2SAT 95
[2023-07-31] MEDS: ATORVASTATIN 40MG TABLET 40 MG PO (20:40)
[2023-07-31 21:08] LABS: POC Glucose,Bedside 132 (70-110)
[2023-08-01 04:00] VITALS: BP 162/94; PULSE 75; RESP 16; TEMP 36.6; O2SAT 95; BMI 34.6
--- NOTE | 2023-08-01 05:27 | PC.NURSE ---
Patient had a good night. Has slept most of this shift. Remains on RA and is AxO x4. Patient blair remains as the patient is non weightbearing on the Right leg. Porter pinto has been changed and pericare was done by RN. No other issues stated by patient
[2023-08-01] MEDS: LEVOTHYROXINE 75MCG (0.075MG) TAB 75 MCG PO (06:08)
[2023-08-01] MEDS: humaLOG 100 UNITS/ML 3ML VIAL (SSI) SQ ×3 (06:11→21:24)
[2023-08-01 06:44] LABS: POC Glucose,Bedside 156 (70-110)
[2023-08-01 08:00] VITALS: BP 165/85; PULSE 77; RESP 18; TEMP 36.9; O2SAT 97
[2023-08-01] MEDS: METOPROLOL TARTRATE 50MG TABLET 50 MG PO ×2 (09:44→21:20)
[2023-08-01] MEDS: ENOXAPARIN 40MG/0.4ML SYRINGE 40 MG SQ (09:44)
[2023-08-01] MEDS: PANTOPRAZOLE 40MG TABLET 40 MG PO (09:44)
[2023-08-01] MEDS: ACETAMINOPHEN 325MG TAB 650 MG PO (09:44)
[2023-08-01] MEDS: LACTOBACILLUS PROBIOTIC COMB CAPSULE 1 CAP PO (09:44)
[2023-08-01 11:37] LABS: POC Glucose,Bedside 155 (70-110)
[2023-08-01] MEDS: 0.9 % SODIUM CHLORIDE 1000ML 1,000 ML 75 ML IV (13:21)
--- NOTE | 2023-08-01 15:19 | ECG_ITS ---
APPROVED REPORT Exam: Resting ECG HR:72 bpm ECG Measurements Heart Rate 72 AXES ND 214 P 52 QRSd 106 QRS -18 QT 399 T 115 QTc 424 Conclusion SINUS RHYTHM WITH FIRST DEGREE AV BLOCK Late R wave progression and nonspecific ST-T wave changes noted on EKG of 1 year ago, no changes from this baseline ABNORMAL ECG UNCONFIRMED REPORT Electronically signed by : Jordon Caal MD 08/02/2023 15:16:33
[2023-08-01 15:31] VITALS: BP 195/88; PULSE 75; RESP 19; TEMP 36.6; O2SAT 96
[2023-08-01] MEDS: FAMOTIDINE 20MG/2ML VIAL 20 MG IV (15:57)
[2023-08-01] MEDS: ALUMINUM/MAGNESIUM/SIMETHICONE 30ML UDC 30 ML PO (15:57)
[2023-08-01] MEDS: ASPIRIN EC 81MG TABLET 81 MG PO (16:03)
--- NOTE | 2023-08-01 16:16 | XR_ITS ---
PROCEDURE INFORMATION: Exam: XR Chest Exam date and time: 08/01/2023 5:19 PM Age: 63 years old Clinical indication: Shortness of breath; Additional info: SOB TECHNIQUE: Imaging protocol: Radiologic exam of the chest. Views: 1 view. COMPARISON: CR XR CHEST PORTABLE 08/03/2022 8:39 AM FINDINGS: Lungs: Low lung volumes. Mildly increased diffuse interstitial lung markings. Hazy right basilar opacities. Pleural spaces: No pleural effusion. No pneumothorax. Heart/Mediastinum: Cardiomegaly. Bones/joints: Median sternotomy. IMPRESSION: Mildly increased diffuse interstitial lung markings suggestive of pulmonary edema. Additional hazy right basilar opacities which may represent atelectasis, pulmonary edema or infection.
[2023-08-01 16:49] LABS: Basophils # 0.1 K/mm3 (0-0.2); Basophils % 1.4 % (0.1-2.0); Eosinophils # 0.4 K/mm3 (0.0-0.4); Eosinophils % 4.8 % (0.1-12.0); Hematocrit 28.9 % (37.0-47.0); Hemoglobin 9.4 g/dL (12.2-16.2); Lymphocytes % 25.9 % (10-50); Mean Corpuscular HGB Conc 32.7 g/dL (31.8-35.4); Mean Corpuscular Hemoglobin 29.2 pg (27.0-31.2); Mean Corpuscular Volume 89.2 fl (81-99); Mean Platelet Volume 7.9 fl (7.4-10.4); Monocytes # 0.5 K/mm3 (0.1-1.0); Monocytes % 6.6 % (1.7-9.3); Neutrophils # 4.6 K/mm3 (1.8-7.8); Neutrophils % 61.5 % (37.0-80.0); Platelet Count 259 K/mm3 (142-424); Red Blood Count 3.24 M/mm3 (4.20-5.40); Red Cell Distribution Width 16.2 % (11.5-17.5); White Blood Count 7.5 K/mm3 (4.8-10.8)
[2023-08-01 16:59] LABS: POC Glucose,Bedside 114 (70-110)
[2023-08-01 17:03] LABS: Anion Gap 9.3 mEq/L (5-15); Blood Urea Nitrogen 25 mg/dl (7-17); Calcium 8.2 mg/dl (8.4-10.2); Carbon Dioxide 22 mmol/L (22.0-30.0); Chloride 111 mmol/L (98-107); Creatinine Clearance Estimated 63 mL/min (50-200); Estimated Glomerular Filt Rate 35 ml/min (>60); GFR (African American) 42 ML/MIN (>60); Glucose 115 mg/dl (74-100); Potassium 5.3 mmoL/L (3.5-5.1); Sodium 137 mmol/L (136-145)
[2023-08-01 17:15] LABS: Troponin I 0.02 ng/ml (0.00-0.034)
--- NOTE | 2023-08-01 17:23 | EXP.PN ---
Subjective *Date: 08/01/23 *Time: 17:23 Interval history: patient was seen and evaluated at the bedside. no complains of abdominal pain, No reported acute events overnight, denies chest pain, shortness of breath, nausea, vomiting, abdominal pain. Exam Data for Last 24 hours Vital signs and Labs for Last 24 Hours: Temp Pulse Resp BP Pulse Ox O2 Del Method 97.9 F 75 19 195/88 H 96 Room Air 08/01/23 15:31 08/01/23 15:31 08/01/23 15:31 08/01/23 15:31 08/01/23 15:31 08/01/23 15:31 Laboratory Results - last 24 hr 07/31/23 20:35: POC Glucose 132 H 08/01/23 06:09: POC Glucose 156 H 08/01/23 11:13: POC Glucose 155 H 08/01/23 16:07: POC Glucose 114 H 08/01/23 16:25: Troponin I 0.02 08/01/23 16:40: WBC 7.5 D, RBC 3.24 L, Hgb 9.4 L, Hct 28.9 L, MCV 89.2, MCH 29.2, MCHC 32.7, RDW 16.2, Plt Count 259, MPV 7.9, Neut % (Auto) 61.5, Lymph % (Auto) 25.9, [place] % (Auto) 6.6, Eos % (Auto) 4.8, Baso % (Auto) 1.4, Neut # (Auto) 4.6, Lymph # (Auto) 2.0, [place] # (Auto) 0.5, Eos # (Auto) 0.4, Baso # (Auto) 0.1, Sodium 137, Potassium 5.3 H, Chloride 111 H, Carbon Dioxide 22, Anion Gap 9.3, BUN 25 H, Creatinine 1.50 H D, Estimated Creat Clear 63, Estimated GFR 35 L, Est GFR ( Amer) 42 L D, Glucose 115 H, Calcium 8.2 L I & O for Last 24 hours: Intake & Output 07/29/23 07/30/23 07/31/23 08/01/23 23:59 23:59 23:59 23:59 Intake Total 2456 / 3071 3600 / 4337 1792 / 1792 600 / 600 Output Total 575 / 575 950 / 950 1250 / 1250 800 / 800 Balance 1881 / 2496 2650 / 3387 542 / 542 -200 / -200 Weight 99.45 kg 99.48 kg 103.6 kg 103.6 kg Microbiology Reports for the Last 24 Hours: Microbiology 07/29/23 02:23 Urine,Clean Catch Urine Culture - Preliminary Constitutional Constitutional: no acute distress *Routine HEENT Exam Head: Present normocephalic Eye: Present EOMI and PERRL ENT: Present mucous membranes moist *Routine Neck Exam Neck: Present supple; Absent lymphadenopathy *Routine Respiratory Exam Respiratory: Present CTA bilaterally *Routine Cardiovascular Exam Cardiovascular: Present RRR *Routine Abdominal Exam Abdominal: Present soft and normoactive bowel sounds; Absent tenderness *Routine Extremities Exam Extremities: Absent cyanosis, clubbing or edema *Routine Skin Exam Skin: Present warm; Absent rash *Routine Neurological Exam Neurological: Present alert and oriented X3 Assessment and Plan *Assessment and plan (1) UTI (urinary tract infection): Status: Acute Qualifiers: Urinary tract infection type: acute pyelonephritis Qualified Code(s): N10 - Acute pyelonephritis Category: Medical Code(s): N39.0 - Urinary tract infection, site not specified (2) History of ESBL E. coli infection: Status: Acute Category: Medical Code(s): Z86.19 - Personal history of other infectious and parasitic diseases (3) Diarrhea in adult patient: Status: Acute Category: Medical Code(s): R19.7 - Diarrhea, unspecified (4) Hyperkalemia: Status: Acute Category: Medical Code(s): E87.5 - Hyperkalemia (5) CKD (chronic kidney disease): Status: Acute Qualifiers: Chronic kidney disease stage: stage 3 (moderate) Chronic kidney disease stage 3 subtype: stage 3b (GFR 30-44) Qualified Code(s): N18.32 - Chronic kidney disease, stage 3b Category: Medical Code(s): N18.9 - Chronic kidney disease, unspecified (6) Anemia of renal disease: Status: Acute Category: Medical Code(s): N18.9 - Chronic kidney disease, unspecified; D63.1 - Anemia in chronic kidney disease (7) Diastolic congestive heart failure: Status: Acute Qualifiers: Heart failure chronicity: acute Qualified Code(s): I50.31 - Acute diastolic (congestive) heart failure Category: Medical Code(s): I50.30 - Unspecified diastolic (congestive) heart failure (8) S/P CABG x 3: Status: Acute Category: Surgical Code(s): Z95.1 - Presence of aortocoronary bypass graft (9) Hyperlipidemia: Status: Acute Qualifiers: Hyperlipidemia type: mixed hyperlipidemia Qualified Code(s): E78.2 - Mixed hyperlipidemia Category: Medical Code(s): E78.5 - Hyperlipidemia, unspecified (10) Hypertension: Status: Acute Qualifiers: Hypertension type: primary hypertension Qualified Code(s): I10 - Essential (primary) hypertension Category: Medical Code(s): I10 - Essential (primary) hypertension (11) Hypothyroidism: Status: Acute Qualifiers: Hypothyroidism type: unspecified Qualified Code(s): E03.9 - Hypothyroidism, unspecified Category: Medical Code(s): E03.9 - Hypothyroidism, unspecified (12) Diabetes: Status: Chronic Qualifiers: Diabetes mellitus type: type 2 Diabetes mellitus inventory control clerk insulin use: without inventory control clerk use Diabetes mellitus complication status: with skin complications Diabetes mellitus complication detail: with foot ulcer Qualified Code(s): E11.621 - Type 2 diabetes mellitus with foot ulcer; L97.509 - Non-pressure chronic ulcer of other part of unspecified foot with unspecified severity Category: Medical Code(s): E11.9 - Type 2 diabetes mellitus without complications (13) Diabetic ulcer of right foot: Status: Acute Qualifiers: Diabetic foot ulcer location: heel Diabetes mellitus type: type 2 Non-pressure ulcer stage: with necrosis of bone Qualified Code(s): E11.621 - Type 2 diabetes mellitus with foot ulcer; L97.414 - Non-pressure chronic ulcer of right heel and midfoot with necrosis of bone Category: Medical Code(s): E11.621 - Type 2 diabetes mellitus with foot ulcer; L97.519 - Non-pressure chronic ulcer of other part of right foot with unspecified severity (14) Class 1 obesity due to excess calories with body mass index (BMI) of 30.0 to 30.9 in adult: Status: Chronic Qualifiers: Serious obesity comorbidity presence: with serious comorbidity Qualified Code(s): E66.09 - Other obesity due to excess calories; Z68.30 - Body mass index [BMI] 30.0-30.9, adult Category: Medical Code(s): E66.09 - Other obesity due to excess calories; Z68.30 - Body mass index [BMI] 30.0-30.9, adult Plan 63-year-old female PMHx of hypertension, hyperlipidemia, CAD status post three-vessel, type 2 diabetes with diabetic foot ulcer on the right lower extremity, CKD recently required emergency dialysis, medical deconditioning, sedentary lifestyle presenting with dysuria and nauseas. On arrival UA was collected. concerning for UTI. Labs are grossly umremarkable. renal function stable. patient started on ertapenem. Discussed with ER for admission. plan as follow: -UTI, presented with right flank pain and nauseas with Hx of ESBL, multidrug resistant. - continue Ertapenem - Urine Culture - moderate E- coli growth, sensitivities pending -CKD - stable Associated anemia: stable, monitor CBC - Others chronic conditions CHF, CAD, s/p CABG, HTN, HLD, Hypothyroidism conditions reviewed. currently stable. reconcile and resume home medication on aspirin and statin on synthroid -Diabetes with right foot ulcer: wound dressing clean dry and intact. been managed with Santyl diabetic diet - obesity with comorbidities: will complicated aspect of care lovenox for DVT ppx. On protonix Full code DC on thursday, patient mentions she wants to go to rehab not home, PT/OT recommendations noted
[2023-08-01] MEDS: HYDRALAZINE 20MG/ML VIAL 5 MG IV (17:35)
--- NOTE | 2023-08-01 19:16 | PC.NURSE ---
Patient had c/o SOA and called. Pqatient felt better after stopping fluids and getting duoneb
[2023-08-01] MEDS: FUROSEMIDE 40MG/4ML VIAL 40 MG IV (19:23)
[2023-08-01 20:00] VITALS: BP 159/70; PULSE 81; RESP 18; TEMP 37.2; O2SAT 97
[2023-08-01] MEDS: ATORVASTATIN 40MG TABLET 40 MG PO (21:19)
--- NOTE | 2023-08-01 21:19 | PC.NURSE ---
FSBS 171
[2023-08-01 21:28] LABS: POC Glucose,Bedside 171 (70-110)
[2023-08-02 04:00] VITALS: BP 147/68; PULSE 74; RESP 18; TEMP 36.3; O2SAT 95; BMI 34.9
[2023-08-02] MEDS: 0.9 % SODIUM CHLORIDE 1000ML 1,000 ML 75 ML IV ×2 (06:04→20:26)
[2023-08-02] MEDS: LEVOTHYROXINE 75MCG (0.075MG) TAB 75 MCG PO (06:05)
[2023-08-02] MEDS: ACETAMINOPHEN 325MG TAB 650 MG PO ×2 (06:12→14:53)
--- NOTE | 2023-08-02 06:15 | PC.NURSE ---
PT A/O X4/ PT C/O AN ACHE IN HER NECK WHEN SHE WOKE UP THIS AM AND WAS GIVEN TYLENOL BUT HAS OTHERWISE NOT HAD ANY COMPLAINTS T/O NIGHT. PT REMAINS ON RA, TOLERATING WELL WITH SAT IN MID 90S. PT HAS NEEDED ENCOURAGEMENT TO TURN EVERY FEW HOURS BUT IS ABLE TO DO SO INDEPENDENTLY. PUREWICK IN PLACE, PT REFUSES TO GET OOB TO VOID. 1300 ML URINE OP TOTAL FOR THIS SHIFT. CALL LIGHT WITHIN REACH.
[2023-08-02 06:16] LABS: POC Glucose,Bedside 127 (70-110)
[2023-08-02 07:20] LABS: Basophils # 0.1 K/mm3 (0-0.2); Eosinophils # 0.3 K/mm3 (0.0-0.4); Eosinophils % 5.9 % (0.1-12.0); Hematocrit 25.9 % (37.0-47.0); Lymphocytes # 1.2 K/mm3 (0.7-4.5); Lymphocytes % 22.4 % (10-50); Mean Corpuscular HGB Conc 32.1 g/dL (31.8-35.4); Mean Corpuscular Hemoglobin 28.6 pg (27.0-31.2); Mean Corpuscular Volume 89.2 fl (81-99); Mean Platelet Volume 7.9 fl (7.4-10.4); Monocytes # 0.4 K/mm3 (0.1-1.0); Monocytes % 6.4 % (1.7-9.3); Neutrophils # 3.5 K/mm3 (1.8-7.8); Neutrophils % 64.3 % (37.0-80.0); Platelet Count 223 K/mm3 (142-424); Red Blood Count 2.91 M/mm3 (4.20-5.40); Red Cell Distribution Width 16.4 % (11.5-17.5); White Blood Count 5.5 K/mm3 (4.8-10.8)
[2023-08-02 07:35] LABS: Blood Urea Nitrogen 25 mg/dl (7-17); Calcium 8.2 mg/dl (8.4-10.2); Carbon Dioxide 19 mmol/L (22.0-30.0); Chloride 112 mmol/L (98-107); Creatinine Clearance Estimated 63 mL/min (50-200); Estimated Glomerular Filt Rate 35 ml/min (>60); GFR (African American) 42 ML/MIN (>60); Glucose 124 mg/dl (74-100); Sodium 138 mmol/L (136-145)
[2023-08-02 07:37] VITALS: BP 152/82; PULSE 69; RESP 18; TEMP 36.4; O2SAT 96
[2023-08-02 07:48] LABS: Hemoglobin 8.3 g/dL (12.2-16.2)
[2023-08-02 08:00] VITALS: O2SAT 96
[2023-08-02] MEDS: ENOXAPARIN 40MG/0.4ML SYRINGE 40 MG SQ (09:04)
[2023-08-02] MEDS: METOPROLOL TARTRATE 50MG TABLET 50 MG PO ×2 (09:05→20:25)
[2023-08-02] MEDS: LACTOBACILLUS PROBIOTIC COMB CAPSULE 1 CAP PO (09:05)
[2023-08-02] MEDS: PANTOPRAZOLE 40MG TABLET 40 MG PO (09:05)
[2023-08-02] MEDS: humaLOG 100 UNITS/ML 3ML VIAL (SSI) SQ ×2 (11:01→20:25)
[2023-08-02 11:05] LABS: POC Glucose,Bedside 200 (70-110)
[2023-08-02 15:00] VITALS: BP 169/97; PULSE 74; RESP 18; TEMP 36.6; O2SAT 97
--- NOTE | 2023-08-02 16:19 | EXP.PN ---
Subjective *Date: 08/02/23 *Time: 16:19 Interval history: patient was seen and evaluated at the bedside. no complains of abdominal pain, No reported acute events overnight, denies chest pain, shortness of breath, nausea, vomiting, abdominal pain. Exam Data for Last 24 hours Vital signs and Labs for Last 24 Hours: Temp Pulse Resp BP Pulse Ox O2 Del Method 97.9 F 74 18 169/97 H 97 Room Air 08/02/23 15:00 08/02/23 15:00 08/02/23 15:00 08/02/23 15:00 08/02/23 15:00 08/02/23 15:00 Laboratory Results - last 24 hr 08/01/23 16:07: POC Glucose 114 H 08/01/23 16:25: Troponin I 0.02 08/01/23 16:40: WBC 7.5 D, RBC 3.24 L, Hgb 9.4 L, Hct 28.9 L, MCV 89.2, MCH 29.2, MCHC 32.7, RDW 16.2, Plt Count 259, MPV 7.9, Neut % (Auto) 61.5, Lymph % (Auto) 25.9, [place] % (Auto) 6.6, Eos % (Auto) 4.8, Baso % (Auto) 1.4, Neut # (Auto) 4.6, Lymph # (Auto) 2.0, [place] # (Auto) 0.5, Eos # (Auto) 0.4, Baso # (Auto) 0.1, Sodium 137, Potassium 5.3 H, Chloride 111 H, Carbon Dioxide 22, Anion Gap 9.3, BUN 25 H, Creatinine 1.50 H D, Estimated Creat Clear 63, Estimated GFR 35 L, Est GFR ( Amer) 42 L D, Glucose 115 H, Calcium 8.2 L 08/01/23 21:18: POC Glucose 171 H 08/02/23 06:06: POC Glucose 127 H 08/02/23 07:05: WBC 5.5 D, RBC 2.91 L, Hgb 8.3 L D, Hct 25.9 L, MCV 89.2, MCH 28.6, MCHC 32.1, RDW 16.4, Plt Count 223, MPV 7.9, Neut % (Auto) 64.3, Lymph % (Auto) 22.4, [place] % (Auto) 6.4, Eos % (Auto) 5.9, Baso % (Auto) 1.0, Neut # (Auto) 3.5, Lymph # (Auto) 1.2, [place] # (Auto) 0.4, Eos # (Auto) 0.3, Baso # (Auto) 0.1, Sodium 138, Potassium 5.0, Chloride 112 H, Carbon Dioxide 19 L, Anion Gap 12.0, BUN 25 H, Creatinine 1.50 H, Estimated Creat Clear 63, Estimated GFR 35 L, Est GFR ( Amer) 42 L, Glucose 124 H, Calcium 8.2 L 08/02/23 10:55: POC Glucose 200 H I & O for Last 24 hours: Intake & Output 07/30/23 07/31/23 08/01/23 08/02/23 23:59 23:59 23:59 23:59 Intake Total 3600 / 4337 1792 / 1792 600 / 600 1653 / 1653 Output Total 950 / 950 1250 / 1250 1600 / 1600 1300 / 1300 Balance 2650 / 3387 542 / 542 -1000 / -1000 353 / 353 Weight 99.48 kg 103.6 kg 103.6 kg 104.598 kg Constitutional Constitutional: no acute distress *Routine HEENT Exam Head: Present normocephalic Eye: Present EOMI and PERRL ENT: Present mucous membranes moist *Routine Neck Exam Neck: Present supple; Absent lymphadenopathy *Routine Respiratory Exam Respiratory: Present CTA bilaterally *Routine Cardiovascular Exam Cardiovascular: Present RRR *Routine Abdominal Exam Abdominal: Present soft and normoactive bowel sounds; Absent tenderness *Routine Extremities Exam Extremities: Absent cyanosis, clubbing or edema *Routine Skin Exam Skin: Present warm; Absent rash *Routine Neurological Exam Neurological: Present alert and oriented X3 Assessment and Plan *Assessment and plan (1) UTI (urinary tract infection): Status: Acute Qualifiers: Urinary tract infection type: acute pyelonephritis Qualified Code(s): N10 - Acute pyelonephritis Category: Medical Code(s): N39.0 - Urinary tract infection, site not specified (2) History of ESBL E. coli infection: Status: Acute Category: Medical Code(s): Z86.19 - Personal history of other infectious and parasitic diseases (3) Diarrhea in adult patient: Status: Acute Category: Medical Code(s): R19.7 - Diarrhea, unspecified (4) Hyperkalemia: Status: Acute Category: Medical Code(s): E87.5 - Hyperkalemia (5) CKD (chronic kidney disease): Status: Acute Qualifiers: Chronic kidney disease stage: stage 3 (moderate) Chronic kidney disease stage 3 subtype: stage 3b (GFR 30-44) Qualified Code(s): N18.32 - Chronic kidney disease, stage 3b Category: Medical Code(s): N18.9 - Chronic kidney disease, unspecified (6) Anemia of renal disease: Status: Acute Category: Medical Code(s): N18.9 - Chronic kidney disease, unspecified; D63.1 - Anemia in chronic kidney disease (7) Diastolic congestive heart failure: Status: Acute Qualifiers: Heart failure chronicity: acute Qualified Code(s): I50.31 - Acute diastolic (congestive) heart failure Category: Medical Code(s): I50.30 - Unspecified diastolic (congestive) heart failure (8) S/P CABG x 3: Status: Acute Category: Surgical Code(s): Z95.1 - Presence of aortocoronary bypass graft (9) Hyperlipidemia: Status: Acute Qualifiers: Hyperlipidemia type: mixed hyperlipidemia Qualified Code(s): E78.2 - Mixed hyperlipidemia Category: Medical Code(s): E78.5 - Hyperlipidemia, unspecified (10) Hypertension: Status: Acute Qualifiers: Hypertension type: primary hypertension Qualified Code(s): I10 - Essential (primary) hypertension Category: Medical Code(s): I10 - Essential (primary) hypertension (11) Hypothyroidism: Status: Acute Qualifiers: Hypothyroidism type: unspecified Qualified Code(s): E03.9 - Hypothyroidism, unspecified Category: Medical Code(s): E03.9 - Hypothyroidism, unspecified (12) Diabetes: Status: Chronic Qualifiers: Diabetes mellitus type: type 2 Diabetes mellitus terminal carman insulin use: without [facility] use Diabetes mellitus complication status: with skin complications Diabetes mellitus complication detail: with foot ulcer Qualified Code(s): E11.621 - Type 2 diabetes mellitus with foot ulcer; L97.509 - Non-pressure chronic ulcer of other part of unspecified foot with unspecified severity Category: Medical Code(s): E11.9 - Type 2 diabetes mellitus without complications (13) Diabetic ulcer of right foot: Status: Acute Qualifiers: Diabetic foot ulcer location: heel Diabetes mellitus type: type 2 Non-pressure ulcer stage: with necrosis of bone Qualified Code(s): E11.621 - Type 2 diabetes mellitus with foot ulcer; L97.414 - Non-pressure chronic ulcer of right heel and midfoot with necrosis of bone Category: Medical Code(s): E11.621 - Type 2 diabetes mellitus with foot ulcer; L97.519 - Non-pressure chronic ulcer of other part of right foot with unspecified severity (14) Class 1 obesity due to excess calories with body mass index (BMI) of 30.0 to 30.9 in adult: Status: Chronic Qualifiers: Serious obesity comorbidity presence: with serious comorbidity Qualified Code(s): E66.09 - Other obesity due to excess calories; Z68.30 - Body mass index [BMI] 30.0-30.9, adult Category: Medical Code(s): E66.09 - Other obesity due to excess calories; Z68.30 - Body mass index [BMI] 30.0-30.9, adult Plan 63-year-old female PMHx of hypertension, hyperlipidemia, CAD status post three-vessel, type 2 diabetes with diabetic foot ulcer on the right lower extremity, CKD recently required emergency dialysis, medical deconditioning, sedentary lifestyle presenting with dysuria and nauseas. On arrival UA was collected. concerning for UTI. Labs are grossly umremarkable. renal function stable. patient started on ertapenem. Discussed with ER for admission. plan as follow: -UTI, presented with right flank pain and nauseas with Hx of ESBL, multidrug resistant. - continue Ertapenem - Urine Culture - moderate E- coli growth, sensitivities pending -CKD - stable Associated anemia: stable, monitor CBC - Others chronic conditions CHF, CAD, s/p CABG, HTN, HLD, Hypothyroidism conditions reviewed. currently stable. reconcile and resume home medication on aspirin and statin on synthroid -Diabetes with right foot ulcer: wound dressing clean dry and intact. been managed with Santyl diabetic diet - obesity with comorbidities: will complicated aspect of care lovenox for DVT ppx. On protonix Full code DC on thursday pending placement, continue on IV abx while inhouse, patient mentions she wants to go to rehab not home, PT/OT recommendations noted, SW aware
[2023-08-02 16:39] LABS: POC Glucose,Bedside 132 (70-110)
--- NOTE | 2023-08-02 18:45 | PC.NURSE ---
patient is alert and oriented x4, no c/o of shortness of breath or chest pain during this shift. Pt received tylenol for 4/10 neck pain. She stated that she has her family member change the dressing on her heel. 900ml total urinary output during this shift. pt sitting up in bed watching tv, call light in reach.
[2023-08-02 20:02] VITALS: BP 153/68; PULSE 73; RESP 16; TEMP 37; O2SAT 97
[2023-08-02 20:05] LABS: POC Glucose,Bedside 202 (70-110)
[2023-08-02] MEDS: ATORVASTATIN 40MG TABLET 40 MG PO (20:25)
[2023-08-03 04:00] VITALS: BP 140/72; PULSE 68; RESP 16; TEMP 36.9; O2SAT 92; BMI 34.9
--- NOTE | 2023-08-03 05:24 | PC.NURSE ---
Pt a&ox4. Pt has had no complaints throughout the shift. Has been resting. Purewick in place. Walker bandage to R foot, family changed dressing. Room air. Right leg 1+ pitting edema noted. Call light in reach.
[2023-08-03 05:49] LABS: POC Glucose,Bedside 114 (70-110)
[2023-08-03] MEDS: LEVOTHYROXINE 75MCG (0.075MG) TAB 75 MCG PO (06:09)
[2023-08-03 06:44] LABS: Basophils # 0.1 K/mm3 (0-0.2); Eosinophils # 0.5 K/mm3 (0.0-0.4); Eosinophils % 10.6 % (0.1-12.0); Hematocrit 26.8 % (37.0-47.0); Hemoglobin 8.6 g/dL (12.2-16.2); Lymphocytes # 1.4 K/mm3 (0.7-4.5); Lymphocytes % 30.5 % (10-50); Mean Corpuscular HGB Conc 32.2 g/dL (31.8-35.4); Mean Corpuscular Hemoglobin 28.5 pg (27.0-31.2); Mean Corpuscular Volume 88.5 fl (81-99); Mean Platelet Volume 8.6 fl (7.4-10.4); Monocytes # 0.3 K/mm3 (0.1-1.0); Monocytes % 7.3 % (1.7-9.3); Neutrophils # 2.4 K/mm3 (1.8-7.8); Neutrophils % 50.7 % (37.0-80.0); Platelet Count 256 K/mm3 (142-424); Red Blood Count 3.02 M/mm3 (4.20-5.40); Red Cell Distribution Width 16.4 % (11.5-17.5); White Blood Count 4.7 K/mm3 (4.8-10.8)
[2023-08-03 07:05] LABS: Anion Gap 10.9 mEq/L (5-15); Blood Urea Nitrogen 23 mg/dl (7-17); Calcium 8.3 mg/dl (8.4-10.2); Carbon Dioxide 20 mmol/L (22.0-30.0); Chloride 112 mmol/L (98-107); Creatinine Clearance Estimated 63 mL/min (50-200); Estimated Glomerular Filt Rate 35 ml/min (>60); GFR (African American) 42 ML/MIN (>60); Glucose 111 mg/dl (74-100); Potassium 4.9 mmoL/L (3.5-5.1); Sodium 138 mmol/L (136-145)
[2023-08-03 08:00] VITALS: BP 140/76; PULSE 77; RESP 18; TEMP 36.7; O2SAT 97
[2023-08-03] MEDS: ENOXAPARIN 40MG/0.4ML SYRINGE 40 MG SQ (08:26)
[2023-08-03] MEDS: LACTOBACILLUS PROBIOTIC COMB CAPSULE 1 CAP PO (08:26)
[2023-08-03] MEDS: METOPROLOL TARTRATE 50MG TABLET 50 MG PO ×2 (08:26→21:14)
[2023-08-03] MEDS: PANTOPRAZOLE 40MG TABLET 40 MG PO (08:26)
[2023-08-03] MEDS: humaLOG 100 UNITS/ML 3ML VIAL (SSI) SQ ×2 (12:15→16:46)
--- NOTE | 2023-08-03 12:30 | PC.NURSE ---
patient back from MRI at this time
[2023-08-03 13:21] LABS: POC Glucose,Bedside 178 (70-110)
--- NOTE | 2023-08-03 15:49 | P.PN_ITS ---
Subjective *Date: 08/03/23 *Time: 15:49 Interval history: patient was seen and evaluated at the bedside. no complains of abdominal pain, No reported acute events overnight, denies chest pain, shortness of breath, nausea, vomiting, abdominal pain. Patient has no complains Exam Data for Last 24 hours Vital signs and Labs for Last 24 Hours: Temp Pulse Resp BP Pulse Ox O2 Del Method 98.1 F 77 18 140/76 97 Room Air 08/03/23 08:00 08/03/23 08:00 08/03/23 08:00 08/03/23 08:00 08/03/23 08:00 08/03/23 15:00 Laboratory Results - last 24 hr 08/02/23 16:30: POC Glucose 132 H 08/02/23 19:55: POC Glucose 202 H 08/03/23 05:40: POC Glucose 114 H 08/03/23 06:30: WBC 4.7 L, RBC 3.02 L, Hgb 8.6 L, Hct 26.8 L, MCV 88.5, MCH 28.5, MCHC 32.2, RDW 16.4, Plt Count 256, MPV 8.6, Neut % (Auto) 50.7, Lymph % (Auto) 30.5, [place] % (Auto) 7.3, Eos % (Auto) 10.6, Baso % (Auto) 1.0, Neut # (Auto) 2.4, Lymph # (Auto) 1.4, [place] # (Auto) 0.3, Eos # (Auto) 0.5 H, Baso # (Auto) 0.1, Sodium 138, Potassium 4.9, Chloride 112 H, Carbon Dioxide 20 L, Anion Gap 10.9, BUN 23 H, Creatinine 1.50 H, Estimated Creat Clear 63, Estimated GFR 35 L, Est GFR ( Amer) 42 L, Glucose 111 H, Calcium 8.3 L 08/03/23 12:12: POC Glucose 178 H I & O for Last 24 hours: Intake & Output 07/31/23 08/01/23 08/02/23 08/03/23 23:59 23:59 23:59 23:59 Intake Total 1792 / 1792 600 / 600 2012 / 2012 2218 / 2218 Output Total 1250 / 1250 1600 / 1600 2000 / 2600 1100 / 1100 Balance 542 / 542 -1000 / -1000 13 / -587 1118 / 1118 Weight 103.6 kg 103.6 kg 104.598 kg 104.598 kg Microbiology Reports for the Last 24 Hours: Microbiology 07/29/23 02:23 Urine,Clean Catch Urine Culture - Preliminary Constitutional Constitutional: no acute distress *Routine HEENT Exam Head: Present normocephalic Eye: Present EOMI and PERRL ENT: Present mucous membranes moist *Routine Neck Exam Neck: Present supple; Absent lymphadenopathy *Routine Respiratory Exam Respiratory: Present CTA bilaterally *Routine Cardiovascular Exam Cardiovascular: Present RRR *Routine Abdominal Exam Abdominal: Present soft and normoactive bowel sounds; Absent tenderness *Routine Extremities Exam Extremities: Absent cyanosis, clubbing or edema *Routine Skin Exam Skin: Present warm; Absent rash *Routine Neurological Exam Neurological: Present alert and oriented X3 Assessment and Plan *Assessment and plan (1) UTI (urinary tract infection): Status: Acute Qualifiers: Urinary tract infection type: acute pyelonephritis Qualified Code(s): N10 - Acute pyelonephritis Category: Medical Code(s): N39.0 - Urinary tract infection, site not specified (2) History of ESBL E. coli infection: Status: Acute Category: Medical Code(s): Z86.19 - Personal history of other infectious and parasitic diseases (3) Diarrhea in adult patient: Status: Acute Category: Medical Code(s): R19.7 - Diarrhea, unspecified (4) Hyperkalemia: Status: Acute Category: Medical Code(s): E87.5 - Hyperkalemia (5) CKD (chronic kidney disease): Status: Acute Qualifiers: Chronic kidney disease stage: stage 3 (moderate) Chronic kidney disease stage 3 subtype: stage 3b (GFR 30-44) Qualified Code(s): N18.32 - Chronic kidney disease, stage 3b Category: Medical Code(s): N18.9 - Chronic kidney disease, unspecified (6) Anemia of renal disease: Status: Acute Category: Medical Code(s): N18.9 - Chronic kidney disease, unspecified; D63.1 - Anemia in chronic kidney disease (7) Diastolic congestive heart failure: Status: Acute Qualifiers: Heart failure chronicity: acute Qualified Code(s): I50.31 - Acute diastolic (congestive) heart failure Category: Medical Code(s): I50.30 - Unspecified diastolic (congestive) heart failure (8) S/P CABG x 3: Status: Acute Category: Surgical Code(s): Z95.1 - Presence of aortocoronary bypass graft (9) Hyperlipidemia: Status: Acute Qualifiers: Hyperlipidemia type: mixed hyperlipidemia Qualified Code(s): E78.2 - Mixed hyperlipidemia Category: Medical Code(s): E78.5 - Hyperlipidemia, unspecified (10) Hypertension: Status: Acute Qualifiers: Hypertension type: primary hypertension Qualified Code(s): I10 - Essential (primary) hypertension Category: Medical Code(s): I10 - Essential (primary) hypertension (11) Hypothyroidism: Status: Acute Qualifiers: Hypothyroidism type: unspecified Qualified Code(s): E03.9 - Hypothyroidism, unspecified Category: Medical Code(s): E03.9 - Hypothyroidism, unspecified (12) Diabetes: Status: Chronic Qualifiers: Diabetes mellitus type: type 2 Diabetes mellitus termite control representative insulin use: without intermediate use Diabetes mellitus complication status: with skin complications Diabetes mellitus complication detail: with foot ulcer Qualified Code(s): E11.621 - Type 2 diabetes mellitus with foot ulcer; L97.509 - Non- pressure chronic ulcer of other part of unspecified foot with unspecified severity Category: Medical Code(s): E11.9 - Type 2 diabetes mellitus without complications (13) Diabetic ulcer of right foot: Status: Acute Qualifiers: Diabetic foot ulcer location: heel Diabetes mellitus type: type 2 Non- pressure ulcer stage: with necrosis of bone Qualified Code(s): E11.621 - Type 2 diabetes mellitus with foot ulcer; L97.414 - Non-pressure chronic ulcer of right heel and midfoot with necrosis of bone Category: Medical Code(s): E11.621 - Type 2 diabetes mellitus with foot ulcer; L97.519 - Non-pressure chronic ulcer of other part of right foot with unspecified severity (14) Class 1 obesity due to excess calories with body mass index (BMI) of 30.0 to 30.9 in adult: Status: Chronic Qualifiers: Serious obesity comorbidity presence: with serious comorbidity Qualified Code(s): E66.09 - Other obesity due to excess calories; Z68.30 - Body mass index [BMI] 30.0-30.9, adult Category: Medical Code(s): E66.09 - Other obesity due to excess calories; Z68.30 - Body mass index [BMI] 30.0-30.9, adult Plan 63-year-old female PMHx of hypertension, hyperlipidemia, CAD status post three- vessel, type 2 diabetes with diabetic foot ulcer on the right lower extremity, CKD recently required emergency dialysis, medical deconditioning, sedentary lifestyle presenting with dysuria and nauseas. On arrival UA was collected. concerning for UTI. Labs are grossly umremarkable. renal function stable. patient started on ertapenem. Discussed with ER for admission. plan as follow: -UTI, presented with right flank pain and nauseas with Hx of ESBL, multidrug resistant. - continue Ertapenem while in-house - Urine Culture - moderate E- coli growth, sensitivities show ESBL -CKD - stable Associated anemia: stable, monitor CBC - Others chronic conditions CHF, CAD, s/p CABG, HTN, HLD, Hypothyroidism conditions reviewed. currently stable. reconcile and resume home medication on aspirin and statin on synthroid -Diabetes with right foot ulcer: wound dressing clean dry and intact. been managed with Santyl diabetic diet - obesity with comorbidities: will complicated aspect of care lovenox for DVT ppx. On protonix Full code DC tomorrow pending placement, continue on IV abx while inhouse, patient mentions she wants to go to rehab not home, PT/OT recommendations noted, SW following
[2023-08-03 16:00] VITALS: BP 152/74; PULSE 73; RESP 18; TEMP 37.1; O2SAT 96
[2023-08-03] MEDS: 0.9 % SODIUM CHLORIDE 1000ML 1,000 ML 75 ML IV (16:47)
[2023-08-03 16:58] LABS: POC Glucose,Bedside 157 (70-110)
[2023-08-03 21:06] LABS: POC Glucose,Bedside 136 (70-110)
[2023-08-03] MEDS: ATORVASTATIN 40MG TABLET 40 MG PO (21:14)
[2023-08-04] VITALS: BP 151/80; PULSE 60; RESP 18; TEMP 36.8; O2SAT 96
[2023-08-04 03:38] VITALS: BMI 34.9
--- NOTE | 2023-08-04 05:32 | PC.NURSE ---
Pt is alert and oriented. Remains on room air. Pt has had no complaints. Has rested throughout the shift. Walker bandage in place on r lower extremity, family changes dressing. Right lower extremity 1+ edema. Call light in reach.
[2023-08-04] MEDS: 0.9 % SODIUM CHLORIDE 1000ML 1,000 ML 75 ML IV (06:04)
[2023-08-04 06:08] LABS: POC Glucose,Bedside 138 (70-110)
[2023-08-04] MEDS: LEVOTHYROXINE 75MCG (0.075MG) TAB 75 MCG PO (06:33)
[2023-08-04 06:38] LABS: Basophils % 1.1 % (0.1-2.0); Eosinophils # 0.4 K/mm3 (0.0-0.4); Eosinophils % 10.8 % (0.1-12.0); Lymphocytes # 1.3 K/mm3 (0.7-4.5); Lymphocytes % 31.3 % (10-50); Mean Corpuscular HGB Conc 30.9 g/dL (31.8-35.4); Mean Corpuscular Hemoglobin 28.1 pg (27.0-31.2); Mean Corpuscular Volume 90.9 fl (81-99); Mean Platelet Volume 8.6 fl (7.4-10.4); Monocytes # 0.3 K/mm3 (0.1-1.0); Monocytes % 7.6 % (1.7-9.3); Neutrophils % 49.2 % (37.0-80.0); Platelet Count 242 K/mm3 (142-424); Red Blood Count 2.86 M/mm3 (4.20-5.40); Red Cell Distribution Width 16.3 % (11.5-17.5); White Blood Count 4.1 K/mm3 (4.8-10.8)
[2023-08-04 06:45] LABS: Anion Gap 9.5 mEq/L (5-15); Blood Urea Nitrogen 23 mg/dl (7-17); Calcium 8.1 mg/dl (8.4-10.2); Carbon Dioxide 21 mmol/L (22.0-30.0); Chloride 112 mmol/L (98-107); Creatinine Clearance Estimated 68 mL/min (50-200); Estimated Glomerular Filt Rate 38 ml/min (>60); GFR (African American) 46 ML/MIN (>60); Glucose 135 mg/dl (74-100); Potassium 4.5 mmoL/L (3.5-5.1); Sodium 138 mmol/L (136-145)
[2023-08-04 07:45] VITALS: BP 133/65; PULSE 66; RESP 18; TEMP 36.7; O2SAT 95
--- NOTE | 2023-08-04 07:52 | P.DS_ITS ---
General Admission date:: 07/29/23 Discharge date: 08/04/23 HPI HPI HPI: This is a 63-year-old female PMHx of hypertension, hyperlipidemia, CAD status post three-vessel, type 2 diabetes with diabetic foot ulcer on the right lower extremity, CKD recently required emergency dialysis, medical deconditioning, sedentary lifestyle presenting with dysuria and nauseas. Patient states that she has been having dysuria on and off for the last 2 weeks. Patient also has history of ESBL E. coli, that is resistant to multiples drugs she has been on and off antibiotics since her last visit here in June. Has been on a ntibiotics for about 3 to 4 weeks at this point, per her and family. Currently taking Bactrim, which she started today. She has had associated diarrhea for the past couple of months which seems like it is getting worse. He states that his dark green, malodorous. Patient having lower pelvic/genitourinary pain when urinating that radiates to her right flank. Denies fevers, chills, hematuria, vomiting, epigastric pain, inability to tolerate p.o. intake, or any other concerns. Admitted for treatment and management. Hospital Course Hospital Course Hospital Course: 63-year-old female PMHx of hypertension, hyperlipidemia, CAD status post three- vessel, type 2 diabetes with diabetic foot ulcer on the right lower extremity, CKD recently required emergency dialysis, medical deconditioning, sedentary lifestyle presenting with dysuria and nauseas. On arrival UA was collected. concerning for UTI. Labs are grossly umremarkable. renal function stable. patient started on ertapenem. Discussed with ER for admission. Showed improvement during admission. Completed antibiotic course. Given clinical stability, meeting criteria for discharge to rehab. Given patient's medical needs, was referred to [facility] for further therapy, graciously excepted. Stable for discharge. Problems addressed as follows: ESBL UTI with E. coli -Urine positive on admission. Initiated on ertapenem. Given rapid resolution of her symptoms, completed 3 days total of ertapenem IV. Urine grew 25-50,000 CFU's of ESBL E. coli. Patient's white cell count is remained normal throughout admission. Is asymptomatic. No indication for further antibiotics at this time. Based on sensitivity, could initiate Macrobid if develops new symptoms after discharge. -CKD -creatinine is remained stable during admission. Currently creatinine 1.4, BUN 23 on day of discharge. Electrolytes stable. Recommend repeat labs in 1 week. Has associated anemia, hemoglobin 8.0. No indication for transfusion at this time. Transfusion threshold hemoglobin less than 7. Chronic conditions have remained stable including her CHF, CAD, CABG, hypertension, hyperlipidemia, hypothyroid. See med rec for medications to continue. -Pressure ulcer versus diabetes foot ulcer: Following with well logger. Recent reconstruction of attachment point of Achilles to calcaneus. Dressing clean dry and intact. Is nonweightbearing on her foot. Diabetes controlled with diet. - obesity with comorbidities: Complicates all aspects of her care. Stable for discharge to [facility] for further management. Total time spent on discharge 32 minutes in counseling, documentation, chart review, and direct care with patient. Exam Data for Last 24 hours Vital signs and Labs for Last 24 Hours: Temp Pulse Resp BP Pulse Ox O2 Del Method 98.1 F 66 18 133/65 95 Room Air 08/04/23 07:45 08/04/23 07:45 08/04/23 07:45 08/04/23 07:45 08/04/23 07:45 08/04/23 07:45 Laboratory Results - last 24 hr 08/03/23 12:12: POC Glucose 178 H 08/03/23 16:07: POC Glucose 157 H 08/03/23 20:54: POC Glucose 136 H 08/04/23 05:50: POC Glucose 138 H 08/04/23 06:18: WBC 4.1 L, RBC 2.86 L, Hgb 8.0 L, Hct 26.0 L, MCV 90.9, MCH 28.1, MCHC 30.9 L, RDW 16.3, Plt Count 242, MPV 8.6, Neut % (Auto) 49.2, Lymph % (Auto) 31.3, [place] % (Auto) 7.6, Eos % (Auto) 10.8, Baso % (Auto) 1.1, Neut # (Auto) 2.0, Lymph # (Auto) 1.3, [place] # (Auto) 0.3, Eos # (Auto) 0.4, Baso # (Auto) 0.0, Sodium 138, Potassium 4.5, Chloride 112 H, Carbon Dioxide 21 L, Anion Gap 9.5, BUN 23 H, Creatinine 1.40 H, Estimated Creat Clear 68, Estimated GFR 38 L, Est GFR ( Amer) 46 L, Glucose 135 H D, Calcium 8.1 L I & O for Last 24 hours: Intake & Output 08/01/23 08/02/23 08/03/23 08/04/23 23:59 23:59 23:59 23:59 Intake Total 600 / 600 2012 2458 / 2458 941 / 941 Output Total 1600 / 1600 2000 / 2600 1600 / 1600 700 / 700 Balance -1000 / -1000 13 / -587 858 / 858 241 / 241 Weight 103.6 kg 104.598 kg 104.598 kg 104.598 kg Microbiology Reports for the Last 24 Hours: Microbiology 07/29/23 02:23 Urine,Clean Catch Urine Culture - Final Constitutional Constitutional: no acute distress, obese, chronically ill appearing and cooperative Comments: Communicative and interactive *Routine HEENT Exam Head: Present normocephalic Eye: Present EOMI and PERRL ENT: Present mucous membranes moist *Routine Neck Exam Neck: Present supple; Absent lymphadenopathy *Routine Respiratory Exam Respiratory: Present rhonchi, normal respiratory effort and symmetric chest movement *Routine Cardiovascular Exam Cardiovascular: Present RRR; Absent murmur *Routine Abdominal Exam Abdominal: Present soft and normoactive bowel sounds; Absent tenderness *Routine Rectal Exam Patient deferred: visual exam *Routine Exam Patient deferred: external exam *Routine Extremities Exam Extremities: Present edema (1+ right lower extremity, trace left lower extremity), pulses intact and normal capillary refill; Absent cyanosis, clubbing or full ROM Comments: Right ankle in postsurgical wrap. Nonweightbearing *Routine Skin Exam Skin: Present warm; Absent rash *Routine Neurological Exam Neurological: Present alert, oriented X3, moving all extremities, vision grossly intact, hearing grossly intact and normal speech; Absent sensory deficit or motor deficit Routine Psychiatric Exam Psychiatric: Present normal affect, normal thought process, cooperative, good insight and good judgment Results Data Completed and Pending Labs on day of discharge: Labs from last 24 hours 08/04/23 08/04/23 08/03/23 06:18 05:50 20:54 WBC 4.1 L RBC 2.86 L Hgb 8.0 L Hct 26.0 L MCV 90.9 MCH 28.1 MCHC 30.9 L RDW 16.3 Plt Count 242 MPV 8.6 Neut % (Auto) 49.2 Lymph % (Auto) 31.3 [place] % (Auto) 7.6 Eos % (Auto) 10.8 Baso % (Auto) 1.1 Neut # (Auto) 2.0 Lymph # (Auto) 1.3 [place] # (Auto) 0.3 Eos # (Auto) 0.4 Baso # (Auto) 0.0 Sodium 138 Potassium 4.5 Chloride 112 H Carbon Dioxide 21 L Anion Gap 9.5 BUN 23 H Creatinine 1.40 H Estimated Creat Clear 68 Estimated GFR 38 L Est GFR ( Amer) 46 L Glucose 135 H D POC Glucose 138 H 136 H Calcium 8.1 L 08/03/23 08/03/23 16:07 12:12 WBC RBC Hgb Hct MCV MCH MCHC RDW Plt Count MPV Neut % (Auto) Lymph % (Auto) [place] % (Auto) Eos % (Auto) Baso % (Auto) Neut # (Auto) Lymph # (Auto) [place] # (Auto) Eos # (Auto) Baso # (Auto) Sodium Potassium Chloride Carbon Dioxide Anion Gap BUN Creatinine Estimated Creat Clear Estimated GFR Est GFR ( Amer) Glucose POC Glucose 157 H 178 H Calcium DS: Diagnosis Discharge Diagnosis (1) UTI (urinary tract infection): Status: Acute Code(s): N39.0 - Urinary tract infection, site not specified Qualifiers: Urinary tract infection type: acute pyelonephritis Qualified Code(s): N10 - Acute pyelonephritis (2) History of ESBL E. coli infection: Status: Acute Code(s): Z86.19 - Personal history of other infectious and parasitic diseases (3) Diarrhea in adult patient: Status: Acute Code(s): R19.7 - Diarrhea, unspecified (4) Hyperkalemia: Status: Acute Code(s): E87.5 - Hyperkalemia (5) CKD (chronic kidney disease): Status: Acute Code(s): N18.9 - Chronic kidney disease, unspecified Qualifiers: Chronic kidney disease stage: stage 3 (moderate) Chronic kidney disease stage 3 subtype: stage 3b (GFR 30-44) Qualified Code(s): N18.32 - Chronic kidney disease, stage 3b (6) Anemia of renal disease: Status: Acute Code(s): N18.9 - Chronic kidney disease, unspecified; D63.1 - Anemia in chronic kidney disease (7) Diastolic congestive heart failure: Status: Acute Code(s): I50.30 - Unspecified diastolic (congestive) heart failure Qualifiers: Heart failure chronicity: acute Qualified Code(s): I50.31 - Acute diastolic (congestive) heart failure (8) S/P CABG x 3: Status: Acute Code(s): Z95.1 - Presence of aortocoronary bypass graft (9) Hyperlipidemia: Status: Acute Code(s): E78.5 - Hyperlipidemia, unspecified Qualifiers: Hyperlipidemia type: mixed hyperlipidemia Qualified Code(s): E78.2 - Mixed hyperlipidemia (10) Hypertension: Status: Acute Code(s): I10 - Essential (primary) hypertension Qualifiers: Hypertension type: primary hypertension Qualified Code(s): I10 - Essential (primary) hypertension (11) Hypothyroidism: Status: Acute Code(s): E03.9 - Hypothyroidism, unspecified Qualifiers: Hypothyroidism type: unspecified Qualified Code(s): E03.9 - Hy pothyroidism, unspecified (12) Diabetes: Status: Chronic Code(s): E11.9 - Type 2 diabetes mellitus without complications Qualifiers: Diabetes mellitus complication detail: with foot ulcer Diabetes mellitus complication status: with skin complications Diabetes mellitus buttermaker insulin use: without penitentiary use Diabetes mellitus type: type 2 Qualified Code(s): E11.621 - Type 2 diabetes mellitus with foot ulcer; L97.509 - Non-pressure chronic ulcer of other part of unspecified foot with unspecified severity (13) Diabetic ulcer of right foot: Status: Acute Code(s): E11.621 - Type 2 diabetes mellitus with foot ulcer; L97.519 - Non-pressure chronic ulcer of other part of right foot with unspecified severity Qualifiers: Diabetes mellitus type: type 2 Diabetic foot ulcer location: heel Non- pressure ulcer stage: with necrosis of bone Qualified Code(s): E11.621 - Type 2 diabetes mellitus with foot ulcer; L97.414 - Non-pressure chronic ulcer of right heel and midfoot with necrosis of bone (14) Class 1 obesity due to excess calories with body mass index (BMI) of 30.0 to 30.9 in adult: Status: Chronic Code(s): E66.09 - Other obesity due to excess calories; Z68.30 - Body mass index [BMI] 30.0-30.9, adult Qualifiers: Serious obesity comorbidity presence: with serious comorbidity Qualified Code(s): E66.09 - Other obesity due to excess calories; Z68.30 - Body mass index [BMI] 30.0-30.9, adult Meds Home Medications and Allergies Home Medications Medication Instructions Recorded Confirmed Type atorvastatin 40 mg tablet 40 mg PO HS Cholesterol 07/25/22 07/29/23 History levothyroxine 75 mcg tablet 75 mcg PO DAILY Thyroid 07/25/22 07/29/23 History aspirin 81 mg tablet,delayed 81 mg PO DAILY #30 tabs 08/04/22 07/29/23 Rx release nystatin 100,000 unit/gram topical 1 applic topical TID #30 grams 06/03/23 07/29/23 Rx ointment colestipol 1 gram tablet 1 g PO BID 07/29/23 07/29/23 History dicyclomine 10 mg capsule 10 mg PO QID 07/29/23 07/29/23 History metoprolol tartrate 50 mg tablet 50 mg PO BID High Blood Pressure 07/29/23 07/29/23 History L.acidophilus-L.paracasei-B.bifidum-S.thermophl 1 cap PO DAILY #0 caps 08/04/23 Rx 8 billion cell capsule (RisaQuad) ipratropium 0.5 mg-albuterol 3 mg 3 ml inhalation Q4HP PRN Shortness 08/04/23 Rx (2.5 mg base)/3 mL nebulization Of Breath #0 mL soln nicotine 21 mg/24 hr daily 21 mg transdermal DAILYP PRN 08/04/23 Rx transdermal patch Nicotine Cravings #0 ea New Prescriptions to Start Prescriptions: Allergies Allergy/AdvReac Type Severity Reaction Status Date / Time No Known Allergies Allergy Verified 08/14/22 14:16 Discharge Plan Disposition Patient Disposition: Xfer Inpatient Rehab Fac Condition: Good Discharge Order Discharge Orders: Discharge Order (Routine); Ordered 08/04/23 Ordered By: Clyde Stroud Follow up Plan Follow up with: Paras Mitchell [Primary Care Provider] - 08/06/23 10:00 am Prescriptions/Medication Reconciliation: New ipratropium-albuterol 0.5 mg-3 mg(2.5 mg base)/3 mL Solution For Nebulization 3 ml inhalation Q4HP PRN (Reason: Shortness Of Breath) Qty: 0 0RF nicotine 21 mg/24 hr Patch 24 Hour 21 mg transdermal DAILYP PRN (Reason: Nicotine Cravings) Qty: 0 0RF RisaQuad 8 billion cell Capsule 1 cap PO DAILY Qty: 0 0RF Continued atorvastatin 40 mg tablet 40 mg PO HS Patient Comments: TAKE 1 TABLET BY MOUTH ONCE DAILY levothyroxine 75 mcg tablet 75 mcg PO DAILY aspirin 81 mg Tablet,Delayed Release (Dr/Ec) 81 mg PO DAILY Qty: 30 0RF nystatin 100,000 unit/gram ointment 1 applic topical TID Qty: 30 0RF colestipol 1 gram tablet 1 g PO BID Patient Comments: TAKE 1 TABLET BY MOUTH TWICE DAILY dicyclomine 10 mg capsule 10 mg PO QID metoprolol tartrate 50 mg tablet 50 mg PO BID Patient Comments: TAKE 1 TABLET BY MOUTH TWICE DAILY Discontinued sulfamethoxazole-trimethoprim 800-160 mg tablet 1 tab PO BID Problem Reconciliation Problems Reviewed?: Yes Patient Discharge Instructions ACTIVITY: Ambulate as tolerated DIET: continue same diet Patient Instructions: DI for Kidney Infection, DI for Diabetic Foot Ulcer, DI for Urinary Tract Infection (UTI), DI for Extended Spectrum Beta-Lactamase Infection Providers Primary Care Provider: Paras Mitchell Admit Provider: Salma Camacho Attending Provider: Salma Camacho
[2023-08-04] MEDS: ENOXAPARIN 40MG/0.4ML SYRINGE 40 MG SQ (09:15)
[2023-08-04] MEDS: PANTOPRAZOLE 40MG TABLET 40 MG PO (09:16)
[2023-08-04] MEDS: LACTOBACILLUS PROBIOTIC COMB CAPSULE 1 CAP PO (09:16)
[2023-08-04] MEDS: METOPROLOL TARTRATE 50MG TABLET 50 MG PO (09:16)
[2023-08-04 11:46] LABS: POC Glucose,Bedside 166 (70-110)
== END 2023-08-04 13:40 ==
LOC: ER 03:24 → 2ND 07:33
PROVIDERS: Nurse Practitioner Family; Admitting Provider Internal Medicine; Emergency Provider Emergency Medicine; PCP Family Medicine; Visit Provider Internal Medicine
DX: N39.0 Urinary tract infection, site not specified (principal); E78.5 Hyperlipidemia, unspecified; I25.10 Atherosclerotic heart disease of native coronary artery without angina pectoris; E11.621 Type 2 diabetes mellitus with foot ulcer; E87.5 Hyperkalemia; N18.30 Chronic kidney disease, stage 3 unspecified; E11.22 Type 2 diabetes mellitus with diabetic chronic kidney disease; N18.32 Chronic kidney disease, stage 3b; Z95.1 Presence of aortocoronary bypass graft; E03.9 Hypothyroidism, unspecified; L97.414 Non-pressure chronic ulcer of right heel and midfoot with necrosis of bone; E66.09 Other obesity due to excess calories; I13.0 Hypertensive heart and chronic kidney disease with heart failure and stage 1 through stage 4 chronic kidney disease, or unspecified chronic kidney disease; I50.30 Unspecified diastolic (congestive) heart failure
CPT/HCPCS: 36415; 71045; 74176; 80048; 80053; 81001; 82962; 83605; 83735; 84484; 85025; 87086; 93005; 97110; 97163; 97166; 97530; 99285; G0378; J1335; J2405